=== PATIENT | female | born 1965 | race Caucasian/White ===

== ENCOUNTER → 2020-09-27 15:01 | Outpatient (CLI) | payer BC, SELFPAY ==
--- NOTE | ~2020-09-27 | MM_ITS ---
EXAMINATION: MM scrn garima implant BI w trish HISTORY: Screening mammogram TECHNIQUE: Craniocaudal and mediolateral oblique 3-D tomosynthesis images with implant displacement a nd synthetic 2-D images were generated. Craniocaudal and mediolateral oblique views of the breasts wi thout implant displacement were obtained using full field digital mammography. CAD analysis was submi tted and interpreted. COMPARISON: 06/21/2019, 06/16/2019, 06/03/2010 BREAST PARENCHYMAL COMPOSITION: There are scattered areas of fibroglandular density. FINDINGS: There is no evidence of suspicious mass, calcification, or architectural distortion to sugg est malignancy in either breast. There has been no suspicious interval change. IMPRESSION: 1. No mammographic evidence of malignancy. 2. Recommend routine screening mammography in one year. BI-RADS Category 1: Negative Reviewed, dictated and finalized at location A.
--- NOTE | ~2020-09-27 | XR_ITS ---
XR chest 2V DATE: 09/27/2020 15:21 INDICATION: Nicotine dependence TECHNIQUE: PA and lateral views COMPARISON: 06/16/2019 PA and lateral chest FINDINGS: Normal heart size. Aorta and arch calcification and mild aortic unfolding. No hilar or medi astinal enlargement. No pulmonary infiltrate or consolidation, pleural effusion or pulmonary vascular congestion or pneumothorax. IMPRESSION: No active cardiopulmonary disease Aortic atherosclerosis Reviewed, dictated and finalized at location B.
== END ==
PROVIDERS: PCP Internal Medicine; Visit Provider Internal Medicine
DX: Z12.31 Encounter for screening mammogram for malignant neoplasm of breast (principal); Z12.2 Encounter for screening for malignant neoplasm of respiratory organs; I70.0 Atherosclerosis of aorta; F17.210 Nicotine dependence, cigarettes, uncomplicated
CPT/HCPCS: 71046; 77063; 77067

== ENCOUNTER → 2020-11-12 15:55 | Outpatient (CLI) | payer BC, SELFPAY ==
--- NOTE | ~2020-11-12 | MR_ITS ---
EXAMINATION: MR cervical spine wo [facility] EXAM DATE: 11/12/2020 16:29 INDICATION: Bilateral hand loss of coordination TECHNIQUE: Multi-sequential, multiplanar MR images of the cervical spine were obtained without contra st. Axial T2, axial T2 MERGE sequence. Sagittal T1, T2, T2 fat saturation images also obtained. Th ere is no prior study for comparison. FINDINGS: There is moderate to severe loss of the C5-6 disc height, mild loss at C4-5. The vertebral bodies are aligned in the AP dimension. The spinal cord signal intensity and intrinsic morphology is normal. Cervicomedullary junction is normal in appearance. There are no suspicious marrow signal abn ormalities. Paraspinal soft tissue is unremarkable. Level by level evaluation: C2-C3: Disc does not extend beyond the endplate margin. Uncovertebral joint arthropathy: None. Facet joint arthropathy: Mild to moderate left, mild right. Neural foraminal stenosis: No stenosis. Central canal stenosis: No stenosis. C3-C4: Disc does not extend beyond the endplate margin. Uncovertebral joint arthropathy: None. Facet joint arthropathy: Mild to moderate bilateral. Neural foraminal stenosis: No stenosis. Central canal stenosis: No stenosis. C4-C5: There is a mild diffuse disc bulge asymmetric to the right Uncovertebral joint arthropathy: Mild right. Facet joint arthropathy: Mild to moderate bilateral. Neural foraminal stenosis: No stenosis. Central canal stenosis: No stenosis. C5-C6: There is a mild diffuse disc bulge asymmetric to the right Uncovertebral joint arthropathy: Mild to moderate bilateral. Facet joint arthropathy: Mild to moderate bilateral. Neural foraminal stenosis: Mild right. Central canal stenosis: Mild. C6-C7: Disc does not extend beyond the endplate margin. Uncovertebral joint arthropathy: Mild bilateral. Facet joint arthropathy: Mild bilateral. Neural foraminal stenosis: No stenosis. Central canal stenosis: No stenosis. C7-T1: Disc does not extend beyond the endplate margin. Uncovertebral joint arthropathy: None. Facet joint arthropathy: Mild bilateral. Neural foraminal stenosis: No stenosis. Central canal stenosis: No stenosis. IMPRESSION: 1. Cervical disc disease mostly at C5-6, but only mild stenosis. 2. Normal cervical cord signal. Reviewed, dictated and finalized at location A.
== END ==
PROVIDERS: PCP Internal Medicine; Visit Provider Orthopaedic Surgery
DX: R27.8 Other lack of coordination (principal); M50.920 Unspecified cervical disc disorder, mid-cervical region, unspecified level
CPT/HCPCS: 72141

== ENCOUNTER → 2022-02-14 15:43 | Outpatient (CLI) | payer BC, SELFPAY ==
--- NOTE | ~2022-02-14 | CT_ITS ---
EXAMINATION: CT lung screening DATE: 02/14/2022 16:02 INDICATION: Personal history of tobacco dependence TECHNIQUE: Computed tomography (CT) of the chest was performed without intravenous contrast. The dose -length product was 50.30 mGy-cm. Automated exposure control and iterative reconstruction technique w ere employed. COMPARISON: None FINDINGS: Heart size normal. There is atherosclerosis. No significant pleural or pericardial effusion . Upper abdomen is unremarkable. No lymphadenopathy. There are a few calcified granulomas in the lung parenchyma. There are a few additional nodules in both lungs measuring 3 mm or less, likely benign. There is emphysema. No endobronchial lesions. No pneumothorax. No focal airspace consolidation. Mild thoracic spondylosis with accentuated kyphosis. No acute osseous abnormality. There are breast implan ts. IMPRESSION: 1. Lung-RADS category 2: Benign appearance or behavior. Continue annual screening with noncontrast lo w-dose chest CT in 12 months. Reviewed, dictated and finalized at location A. IMPRESSION: 1. Lung-RADS category 2: Benign appearance or behavior. Continue annual screeni ng with noncontrast low-dose chest CT in 12 months.
== END ==
PROVIDERS: PCP Internal Medicine; Visit Provider Internal Medicine
DX: Z12.2 Encounter for screening for malignant neoplasm of respiratory organs (principal); Z87.891 Personal history of nicotine dependence
CPT/HCPCS: 71271

== ENCOUNTER 2022-02-18 14:37 | Outpatient (CLI) | payer BC, SELFPAY ==
--- NOTE | ~2022-02-18 | US_ITS ---
EXAMINATION: US arterial duplex LE DATE: 02/18/2022 15:50 INDICATION: Lateral lower limb pain. TECHNIQUE: Multiple grayscale and Doppler ultrasound images of the arteries of the bilateral lower li mbs were obtained. COMPARISON: None FINDINGS: Normal waveforms with brisk systolic upstrokes in the right external iliac, common femoral, profunda femoral, superficial femoral, popliteal, peroneal, posterior tibial, anterior tibial and dorsalis ped is arteries. No are abnormal gradient of peak systolic velocities to suggest a hemodynamically signif icant stenosis. Normal waveforms with brisk systolic upstrokes in the left external iliac, common femoral, profunda f emoral, superficial femoral, popliteal, peroneal, posterior tibial, anterior tibial and dorsalis pedi s arteries. No are abnormal gradient of peak systolic velocities to suggest a hemodynamically signifi cant stenosis. IMPRESSION: 1. Normal study with normal triphasic waveforms with brisk systolic upstrokes throughout the arteries of both the left and right lower limbs. Reviewed, dictated and finalized at location A. IMPRESSION: 1. Normal study with normal triphasic waveforms with brisk systolic upstrokes t hroughout the arteries of both the left and right lower limbs.
== END 2022-02-18 14:38 | disposition home or self-care (01) ==
PROVIDERS: PCP Internal Medicine; Visit Provider Internal Medicine
DX: M79.604 Pain in right leg (principal)
CPT/HCPCS: 93925

== ENCOUNTER → 2022-04-22 15:45 | Outpatient (CLI) | payer BC, SELFPAY ==
--- NOTE | ~2022-04-22 | MM_ITS ---
EXAMINATION: MM scrn garima implant BI w trish HISTORY: Screening mammogram TECHNIQUE: Craniocaudal and mediolateral oblique 3-D tomosynthesis images with implant displacement a nd synthetic 2-D images were generated. Craniocaudal and mediolateral oblique views of the breasts wi thout implant displacement were obtained using full field digital mammography. CAD analysis was submi tted and interpreted. COMPARISON: Comparison to multiple prior studies sequentially, with oldest reviewed study dated 06/05. BREAST PARENCHYMAL COMPOSITION: The breasts are heterogeneously dense, which may obscure small masses . FINDINGS: There is no evidence of suspicious mass, calcification, or architectural distortion to sugg est malignancy in either breast. There has been no suspicious interval change. IMPRESSION: 1. No mammographic evidence of malignancy. 2. Recommend routine screening mammography in one year. BI-RADS Category 1: Negative Reviewed, dictated and finalized at location A.
== END ==
PROVIDERS: PCP Internal Medicine; Visit Provider Internal Medicine
DX: Z12.31 Encounter for screening mammogram for malignant neoplasm of breast (principal)
CPT/HCPCS: 77063; 77067

== ENCOUNTER → 2023-03-26 15:09 | Outpatient (CLI) | payer BC, SELFPAY ==
--- NOTE | ~2023-03-26 | MR_ITS ---
MRI of the brain Clinical History: Parkinson's disease, abnormal gait Technique: Axial and sagittal T1-weighted images were acquired. These were followed by axial T2-weigh kathya, diffusion weighted, gradient, and FLAIR images. Findings: There is no acute infarct, intracranial hemorrhage, or mass lesion. There are small scatter ed focal areas of FLAIR hyperintense signal in the periventricular and subcortical white matter bilat erally. There is minimal involvement in the marisela as well. Ventricles and subarachnoid spaces are unremarkable. Orbits are unremarkable. Paranasal sinuses and m astoid air cells are clear. Major intracranial flow voids appear intact. Sagittal midline structures are intact. IMPRESSION: Mild chronic microvascular ischemic changes, otherwise unremarkable exam. Reviewed, dictated and finalized at location M.
== END ==
DX: G20 Parkinson's disease (principal); R26.89 Other abnormalities of gait and mobility
CPT/HCPCS: 70551

== ENCOUNTER 2024-06-18 09:46 | Outpatient (CLI) | payer BC, SELFPAY ==
--- NOTE | ~2024-06-18 | DEXA_ITS ---
Bone Density Report Name: LAYTON LEON Age: 59 Sex: Female Ethnicity: White Date of : 1965 Indication: postmenopausal; screening for osteoporosis; height loss; hysterectomy; Referring Provider: LUIS M, RICHARD Durbin Study: Bone densitometry was performed. Exam Date: June 18, 2024 Accession number: [id number] Bone Density: Region BMD T-score Z-score Classification AP Spine(L1-L4) 0.875 -1.6 -0.1 Osteopenia Femoral Neck (Left) 0.656 -1.7 -0.4 Osteopenia Total Hip (Left) 0.738 -1.7 -0.7 Osteopenia Femoral Neck (Right) 0.632 -2.0 -0.6 Osteopenia Total Hip (Right) 0.730 -1.7 -0.7 Osteopenia Total Hip Mean 0.734 -1.7 -0.7 Osteopenia World Health Organization criteria for BMD impression classify patients as: Normal (T-score at or above -1.0), Osteopenia (T-score between -1.0 and -2.5), or Osteoporosis (T-score at or below -2.5). 10-year Fracture Risk(1): Major Osteoporotic Fracture 9.7% Hip Fracture 1.2% Reported Risk Factors: [place] (), Neck BMD=0.632, BMI=24.8 (1) FRAX(R) Version 3.08. Fracture probability calculated for an untreated patient. Fracture probability may be lower if the patient has received treatment. Clinical Information Provided by Patient: Has used the following medications: Vitamin D Has the following medical conditions: Hysterectomy Patient maximum height was 64 Menopause Age: 40 Drinks caffeinated beverages Onset of menses at age 7 Number of children 1 Impression: The patient has low bone mass, based on the Right Femoral Neck T-score. The patient has an estimated ten-year risk of hip fracture of 1.2% and an estimated ten-year risk of major fracture of 9.7%, based on the WHO FRAX algorithm. Discussion: BONE DENSITY IS LOW AT ONE OR MORE SKELETAL SITES. This patient's lowest T-score is low at one or more skeletal sites. It meets the World Health Organization's (WHO) criteria for ?low bone mass? (T-score between -1.0 and -2.5). The patient's 10-year risk of fracture as calculated by FRAX is less than the threshold where pharmacological therapy is recommended by the National Osteoporosis Foundation (NOF). However, all treatment decisions require clinical judgment and consideration of individual patient factors, including patient preferences, comorbidities, previous drug use, risk factors not captured in the FRAX model (e.g., frailty, falls, vitamin D deficiency, increased bone turnover, interval significant decline in bone density) and possible under or overestimation of fracture risk by FRAX. The patient should follow a healthful lifestyle (good nutrition with adequate calcium and vitamin D, and appropriate weight-bearing exercise). Follow-Up: Consider repeating this study in 2 to 3 years to reassess this patient's status, or sooner if there is some new clinical indication. Reported by: MAU on 06/18/2024 10:43:00 AM. Reviewed, dictated and finalized at location AMeenakshi PAN
--- OUTSIDE RECORDS SUMMARY | 2024-06-22 02:34 | XMS_ITS | Encounter Summary ---
Author Organization [facility] Address [address] [place] [address] Care Team Providers Care Burnisher Name Role Phone Adam Han MD Primary Care Provider [phone] Reason for Visit * Reason Onset Date Comments Follow-up 10/22/2016 Encounter Details Date Type Department Care Team (Late st Contact Info) Description 10/22/2016 Telephone [facility] AT [address] [address] Nessa Bloom Follow-up Social History Tobacco Use Types Packs/Day Years Used Date Smoking Tobacco: Every Day Cigarettes Comments:denies need for pat ch states she has themn at home but hasn't started then heather Alcohol Use Standard Drinks/Week Comments Yes 0 (1 standard drink = 0.6 oz pur e alcohol) OCCASIONAL Sex and Gender Information Value Date Recorded Sex Assigned at Not on file Gender Identity Not on file Sexual Orientation Not on file documented as of this encounter Plan of Treatment Not on file documented as of this encounter Visit Diagnoses Not on filedocumented in this encounter Care Teams Burnisher Relationship Specialty Start Date End Date Adam Han MD [address] [place] [address] PCP - General 02/25/11 09/27/23 documented as of this encounter
--- OUTSIDE RECORDS SUMMARY | 2024-06-22 02:34 | XMS_ITS | Encounter Summary ---
Author Organization [facility] Address [address] [place] [address] Care Team Providers Care Forest Botany Instructor Name Role Phone Asad Davis MD Primary Care Provider [phone] Encounter Details Date Type Department Care Team (Latest Contact Info) Description 09/28/2023 Travel Social History Tobacco Use Types Packs/Day Years Used Date Smoking Tobacco: Former Cigarettes Comments:denies need for pat ch states [...] on filedocumented in this encounter Care Teams Forest Botany Instructor Relationship Specialty Start Date End Date Asad Davis MD [address] [address] PCP - General Internal Medicine 09/28/23 documented as of this encounter
--- OUTSIDE RECORDS SUMMARY | 2024-06-22 02:34 | XMS_ITS | Encounter Summary ---
Author Organization [facility] Address [address] [place] [address] Care Team Providers Care Mastercam Programmer Name Role Phone Adam Han MD Primary Care Provider Encounter Details Date Type Department Care Team (Latest Contact Info) Description 02/25/2011 3:35 PM CDT - 02/25/2011 11:59 PM CDT Hospital Encounter [facility] [address] [place] [address] Kyra sarmiento, Sandy Muñoz MD [address] [place] [id number] Laboratory Discharge Disposition: Home or Self Care Social History Tobacco Use Types Packs/Day Years Used Date Smoking Tobacco: Every Day Cigarettes Alcohol Use Standard Drinks/Week Comments Yes 0 (1 standard drink = 0.6 oz pur e alcohol) OCCASIONAL Sex and Gender Information Value Date Recorded Sex Assigned at Not on file Gender Identity Not on file Sexual Orientation Not on file documented as of this encounter Medications at Time of Discharge Medication Sig Dispensed Refills Start Date End Date docusate sodium (COLACE) 100 MG capsule Take 1 Cap by mouth 2 times daily. 60 Cap 0 2011 10/20/2016 ibuprofen (MOTRIN) 600 MG tablet Take 1 Tab by mouth every 6 hours as needed for Pain. 60 Tab 0 2011 10/20/2016 oxycodone-acetaminophen (PERCOCET) 5-325 MG tablet Take 1 Tab by mouth every 6 hours as needed for Pain. 28 Tab 0 2011 10/20/2016 documented as of this encounter Miscellaneous Notes * Miscellaneous Scans - Document, Scanned - 2011 7:21 AM CDT * Miscellaneous Scans - Document, Scanned - 03/04/2011 12:43 PM CDT documented in this encounter Plan of Treatment Not on file documented as of this encounter Procedures Procedure Name Priority Date/Time Associated Diagnosis Comments GROSS + MICRO EXAM HIEU 03/04/2011 12 :00 AM CDT TYPE + SCREEN PANEL Today 02/25/2011 3 :52 PM CDT CBC W AUTO DIFFERENTIAL Today 02/25/2011 3:52 PM CDT documented in this encounter Results * GROSS + MICRO EXAM (03/04/2011 12:00 AM CDT) Result CASE NUMBER [id number] Comment: ORDERING PHYSICIAN ??SANDY ELKINS SPECIMEN TYPE ?Uterus Date ? 03/04/2011 Physician ?William Gross Description ? The specimen is received in Formalin labeled with the patient's name, Zenobia Henley, and uterus and cervix. ??It consists of a 9 x 6.5 x 4 cm uterine corpus with attached cervix. ??It weighs 100 grams. ??The right and left adnexa are absent. ??The serosa is smooth and glistening. ??The ectocervix measures 3 cm in diameter. ??The external os is slit like, 0.5 cm in length, and is surrounded by punctate areas of hemorrhage. ??The endocervical canal measures 3 cm in length. ??The uterine cavity measures 3 x 2 cm, and is lined by soft red yung endometrium that measures up to 0.1 cm in thickness. ??The myometrium has a maximum thickness of 2 cm in thickness. ??The endomyometrium has a trabeculated appearance. ??No definite discrete nodules are seen on the myometrial cut surfaces. ??Planning Official sections of the specimen are submitted as follows Cassettes A and B ?? Cervix. Cassettes C through F ?? Endomyometrium and serosa, including trabeculated myometrium. DAVIS kuo Microscopic Exam ? Sections of the cervix show benign unremarkable histology. ??No dysplasia or malignancy is seen. ??Sections of the endomyometrium show proliferative type endometrium and benign myometrium. ??The serosa is unremarkable. ??There is no evidence of dysplasia or malignancy. ?? MC/vl Diagnosis ? I. ?Uterus, hysterectomy -- ?Cervix with no pathologic diagnosis -- ?Proliferative endometrium -- ?Myometrium and serosa with no pathologic diagnosis MC/vl Tugboat Captain ? vl Pathologist ?Maribell Ross MD [place]. ?2011 1231 <3> CPT code ? 60718 MISCELLANEOUS SAMPLE S / Unknown 03/04/2011 03/04/2011 10:27 AM CDT Historical Provider LAB - PATHOLOGY/C YTOLOGY ORDERABLES * TYPE + SCREEN PANEL (02/25/2011 3:52 PM CDT) ABO Rh O Pos SEE BELOW [facility] Comment: Weak D testing is not performed at [facility] Antibody Screen Neg [facility] Previous History Check Done No historical blood type. ??Blood type confirmation needed prior to transfusion. [facility] BLOOD SPECIMEN / Unknown 02/25/2011 3:52 PM CDT 02/25/2011 4:07 PM CDT Sandy Wayne MD LAB - BLOOD BANK ORDERABLES [facility] [address] [place] [address] * (ABNORMAL) CBC W AUTO DIFFERENTIAL (02/25/2011 3:52 PM CDT) WBC 10.4(H) 4.0 - 10.0 K/CUMM [facility] RBC 4.33 3.80 - 5.80 M/CUMM [facility] Hemoglobin 13.8 12.0 - 16.0 gm/dl [facility] Hematocrit 40.1 37.0 - 47.0 % [facility] MCV 92.6 80.0 - 100.0 fl [facility] MCH 31.9 26.0 - 34.0 pg [facility] MCHC 34.4 31.0 - 37.0 gm/dl [facility] Platelet Count 301 150 - 400 K/CUMM [facility] RDW 13.3 11.5 - 14.5 % [facility] Granulocytes % 51.9 50 - 70 % [facility] Lymphocytes % 37.3 20 - 40 % [facility] Monocytes % 8.5 0 - 12 % [facility] Eosinophils % 1.7 0 - 5 % [facility] Basophils % 0.3 0 - 2 % [facility] Granulocytes Absolute 5.39 2.00 - 7.00 x1000/cmm [facility] Lymphocytes Absolute 3.87 0.80 - 4.00 x1000/cmm [facility] Monocytes Absolute 0.88 0.00 - 1.20 x1000/cmm [facility] Eosinophils Absolute 0.18 0.00 - 0.50 x1000/cmm [facility] Basophils Absolute 0.03 0.00 - 0.20 x1000/cmm [facility] BLOOD SPECIMEN / Unknown 02/25/2011 3:52 PM CDT 02/25/2011 4:07 PM CDT Sandy Wayne MD LAB - HEMATO LOGY ORDERABLES [facility] [address] [place] [address] documented in this encounter Visit Diagnoses Diagnosis Dysmenorrhea documented in this encounter Care Teams Mastercam Programmer Relationship Specialty Start Date End Date Adam Han MD [address] [place] [address] PCP - General 02/25/11 09/27/23 documented as of this encounter
--- OUTSIDE RECORDS SUMMARY | 2024-06-22 02:34 | XMS_ITS | Encounter Summary ---
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 documented in this encounter Plan of Treatment Not on file documented as of this encounter Procedures Procedure Name Priority Date/Time Associated Diagnosis Comments UT SONO EXAM, TRANSVAGINAL Routine 12/03/2023 2:26 PM CDT Dyspareunia, female IMAGING/RADIOLOGY/XRA Y RESULTS ORDER 12/03/2023 documented in this encounter Results * UT SONO EXAM, TRANSVAGINAL (12/03/2023 2:26 PM CDT) Narrative Snehal Ospina - 12/03/2023 2:26 PM CDT Snehal Ospina ? 12/03/2023 ??2:27 PM Documentation in [employer]. Cathy Wayne MD PROCEDURE/[place] [facility] SURGICAL ORDERABLES * IMAGING RADIOLOGY XRAY RESULTS ORDER (12/03/2023) Anatomical Region Laterality Modality Other Narrative 12/03/2023 Ordered by an unspecified provider. Scanned Document IMAGING documented in this encounter Visit Diagnoses Diagnosis Dyspareunia, female- Primary Dyspareunia documented in this encounter Care Teams Vault Installer Relationship Specialty Start Date End Date Asad Davis MD [address] [address] PCP - General Internal Medicine 09/28/23 documented as of this encounter
--- OUTSIDE RECORDS SUMMARY | 2024-06-22 02:34 | XMS_ITS | Encounter Summary ---
Author Organization [facility] Address [address] [place] [address] Care Team Providers Care Supervisor Anodizing Name Role Phone Asad Davis MD Primary Care Provider Encounter Details Date Type Department Care Team (Latest Contact Info) Description 12/03/2023 Travel Social History Tobacco Use Types Packs/Day [...] on filedocumented in this encounter Care Teams Supervisor Anodizing Relationship Specialty Start Date End Date Asad Davis MD [address] [address] PCP - General Internal Medicine 09/28/23 documented as of this encounter
--- OUTSIDE RECORDS SUMMARY | 2024-06-22 02:34 | XMS_ITS | Encounter Summary ---
Author Organization [facility] Address [facility] [place] [address] Care Team Providers Care Boat Loader Helper Name Role Phone Asad Davis MD Primary Care Provider + [phone] Reason for Visit * Reason Comments Dyspareunia Ultrasound f/u Encounter Details Date Type Department Care Team (Late st Contact Info) Description 12/03/2023 3:00 PM CDT Office Visit [facility] - CONTRACT AGENT [address] [place] [address] Cathy Wayne MD [address] [place] [address] Dyspareunia, female (Primary Dx) Social History Tobacco Use Types Packs/Day Years Used Date Smoking Tobacco: Former Cigarettes Tobacco Cessation:Counseling Given: Not Answered Comments:denies need for patch states she has themn at home but hasn't started then heather Alcohol Use Standard Drinks/Week Comments Yes 0 (1 standard drink = 0.6 oz pur e alcohol) OCCASIONAL Sex and Gender Information Value Date Recorded Sex Assigned at Not on file Gender Identity Not on file Sexual Orientation Not on file documented as of this encounter Last Filed Vital Signs Vital Sign Reading Time Taken Comments Blood Pressure - - Pulse - - Temperature - - Respiratory Rate - - Oxygen Saturation - - Inhaled Oxygen Concentration - - Weight 64 kg (141 lb) 12/03/2023 2:44 PM CDT Height 160 cm (5' 3 ) 12/03/2023 2:44 PM CDT Body Mass Index 24.98 12/03/2023 2:44 PM CDT documented in this encounter Progress Notes * Cathy Wayne MD - 12/03/2023 3:00 PM CDT New General geodetic surveyor Patient Progress Note History of Present Illness: Ms. Glasgow a 58 year old No obstetric history on file. female who presents for f/u US for dyspareunia. Partner with Peronis. Obstetrical history: OB History No obstetric history on file. Medical history: Past Medical History: Diagnosis Date Diverticulitis Other activity(E029.9) CERVIX IS CLOSED Parkinson's disease Surgical history: Past Surgical History: Procedure Laterality Date ABDOMINOPLASTY Section DILATION AND CURETTAGE X 2 ENDOMETRIAL ABLATION SURGICAL HISTORY OF 03/04/11 Total Laparoscopic Hysterectomy TUBAL LIGATION, LAPAROSCOPIC Family history: Family History Problem Relation Name Age of Onset Heart Failure Mother Cancer Father Social history: Social History Socioeconomic History Marital status: Spouse name: Not on file Number of children: Not on file Years of education: Not on file Highest education level: Not on file Occupational History Not on file Tobacco Use Smoking status: Former Packs/day: .8 Types: Cigarettes Smokeless tobacco: Not on file Tobacco comments: denies need for patch states she has themn at home but hasn't started then heather Vaping Use Vaping Use: Never used Substance and Sexual Activity Alcohol use: Yes Comment: OCCASIONAL Drug use: No Sexual activity: Yes Partners: Male control/protection: Surgical Other Topics Concern Not on file Social History Narrative Not on file Social Determinants of Health Financial Resource Strain: Not on file Food Insecurity: Not on file Transportation Needs: Not on file Stress: Not on file Housing Stability: Not on file Medications: Current Outpatient Medications Medication Sig Dispense Refill estradiol (Vagifem) 10 MCG vaginal tablet Insert 1 (one) tablet into the vagina as directed Place tablet nightly for 2 weeks, then twice weekly. Ok to use generic 18 tablet 4 No current facility-administered medications for this visit. Allergies: Allergies Allergen Reactions Neosporin [Vfaqkhht-Qecqylpwao-Hhgzyyycn] IRRITATES SKIN Review of Systems: Pertinent items are noted in HPI. Physical examination: There were no vitals filed for this visit. There is no height or weight on file to calculate BMI. General: within normal limits Skin: within normal limits Assessment and Plan: No diagnosis found. Normal US. Improved dyspareunia with vaginal estrogen. Plan to continue. documented in this encounter Plan of Treatment Not on file documented as of this encounter Visit Diagnoses Diagnosis Dyspareunia, female- Primary Dyspareunia documented in this encounter Care Teams Boat Loader Helper Relationship Specialty Start Date End Date Asad Davis MD [address] [place] [address] PCP - General Internal Medicine 09/28/23 documented as of this encounter
--- OUTSIDE RECORDS SUMMARY | 2024-06-22 02:34 | XMS_ITS | Encounter Summary ---
Author Organization [facility] Address [address] [facility] [place] [address] Care Team Providers Care Pigs Feet Finisher Name Role Phone Adam Han MD Primary Care Provider [phone] Encounter Details Date Type Department Care Team (Latest Contact Info) Description 08/26/2023 Travel Social History Tobacco Use Types Packs/Day [...] on filedocumented in this encounter Care Teams Pigs Feet Finisher Relationship Specialty Start Date End Date Adam Han MD [address] [facility] [place] [address] PCP - General 02/25/11 09/27/23 documented as of this encounter
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
--- OUTSIDE RECORDS SUMMARY | 2024-06-22 02:34 | XMS_ITS | Encounter Summary ---
Author Organization [facility] Address [address] [facility] [place] [address] Care Team Providers Care Rivet Passer Name Role Phone Adam Han MD Primary Care Provider [phone] Encounter Details Date Type Department Care Team (Late st Contact Info) Description 10/22/2006 Orders Only [facility] [address] [place] [address] Provider, MD Amaya Social History Tobacco Use Types Packs/Day Years Used Date Smoking Tobacco: Never Assessed Sex and Gender Information Value Date Recorded Sex Assigned at Not on file Gender Identity Not on file Sexual Orientation Not on file documented as of this encounter Plan of Treatment Not on file documented as of this encounter Procedures Procedure Name Priority Date/Time Associated Diagnosis Comments GROSS + MICRO EXAM [facility] 10/22/2006 12 :47 PM CDT documented in this encounter Results * GROSS + MICRO EXAM (10/22/2006 12:47 PM CDT) Result CASE NUMBER [id number] Comment: ORDERING PHYSICIAN ??CELSA PADRON SPECIMEN TYPE ?Endocervical Curret Date ? 10/22/2006 Physician ?Jason Padron Gross Description ? The specimen is received in two Formalin filled containers labeled with the patient's name, Zenobia Henley. 1) ??The first container is labeled endocervical curettings, and consists of a 0.5 x 0.3 x 0.2 cm aggregate of soft red yung bloody mucoid material, all submitted in cassette A. 2) ??The second container is labeled endometrial curettings, and consists of a 0.8 x 0.6 x 0.5 cm aggregate of soft red yung bloody mucoid material, all submitted in cassette B. LW kuo Microscopic Exam ? 1. ?Sections show fragment of benign endocervical glands and stroma. No dysplasia or malignancy is seen. 2. ?Sections show fragments of early secretory type endometrium. No hyperplasia, atypia, or malignancy is seen. MC/na Diagnosis ? I. ?Endocervix, curettage -- ?Negative for dysplasia or ?malignancy II. ?? Endometrium, curettage -- ?Early secretory endometrium MC/na Modern Languages Professor ? na Pathologist ?Connor Ross M.D. [place]. ?10/23/2006 0939 <2> CPT code ? [id number] MISCELLANEOUS SAMPLES / Unknown 10/22/2006 12:47 PM CDT 10/22/2006 12:47 PM CDT Historical Provider LAB - PATHOLOGY/C YTOLOGY ORDERABLES documented in this encounter Visit Diagnoses Not on filedocumented in this encounter Care Teams Rivet Passer Relationship Specialty Start Date End Date Adam Han MD [address] [place] [address] PCP - General 02/25/11 09/27/23 documented as of this encounter
--- OUTSIDE RECORDS SUMMARY | 2024-06-22 02:34 | XMS_ITS | Encounter Summary ---
Author Organization [facility] Address [facility] [place] [address] Care Team Providers Care Threader Operator Name Role Phone Adam Han MD Primary Care Provider [phone] Encounter Details Date Type Department Care Team (Latest Contact Info) Description 03/04/2011 5:46 AM CDT - 2011 11:59 AM CDT Hospital Encounter HC 2 ORTHO/NEW VIS [address] [place] [id number] Cathy Weinstein MD [address] [place] [id number] Surgery General Discharge Disposition: Home or Self Care Social History Tobacco Use Types Packs/Day Years Used Date Smoking Tobacco: Every Day Cigarettes Tobacco Cessation:Ready to Q uit: Yes; Counseling Given: Yes Comments:denies need for patch states she has [...] Sign Reading Time Taken Comments Blood Pressure 137/79 2011 8:58 AM CDT Pulse 58 2011 8:58 AM CDT Temperature 36.9 ??C (98.4 ??F) 2011 8:58 AM CD T Respiratory Rate 18 2011 8:58 AM CDT Oxygen Saturation 100% 2011 8:58 AM CDT Inhaled Oxygen Concentration - - Weight 65.8 kg (145 lb) 02/14/2011 4:30 PM CDT Height 160 cm (5' 3 ) 02/14/2011 4:30 PM CDT Body Mass Index 25.69 02/14/2011 4:30 PM CDT documented in this encounter Discharge Summaries * Bam Ch RN - 2011 12:[address] Scott on voiding trial. Dr young'd to [place]. Pt was given all discharge instructions, prescribed medications, and paper work. All questions answered. Pt has no complaints or concern at discharge. Pt to call Dr. Scott's office tomorrow. Pt off the floor via walking. Bam Ch RN documented in this encounter Discharge Instructions * Discharge Instructions* Bam Ch RN - 2011 11:44 AM CDT If you have any questions regarding your home medications/prescriptions, please contact your primary physician. Discharge Procedure Orders REGULAR DIET AT HOME FOLLOW UP Follow up with Dr. Schneider at the [place] office in 1 week for post op check. Please call for this appointment as soon as possible. Their number is [phone]. DRIVING RESTRICTIONS No driving under the influence of narcotics. CALL PHYSICIAN Call Physician for fever of 101.0 or higher, increased vaginal bleeding, increased pain, or wound drainage. Please avoid smoking and second hand smoke. The following belongings have been returned to you: Clothing: Yes, With Patient: Shirt;Pants;Footwear;Undergarments (with jaz) Jewelry: None Electronic Items: Yes, With Patient: Cell Phone (with jaz) Visual Aids: Yes, Glasses: Secured (with jaz) Hearing Aids: None Equipment with Patient: None, Equipment At Home: None Home Medications: None Miscellaneous Items: None Monetary Items: None .WEIGHT MONITORING - If you have heart failure, weigh yourself every morning. Contact your physician if your weight increases by 3 pounds in 1 day OR 5 pounds in 1 week. WHAT TO DO IF SYMPTOMS WORSEN - Contact your physician if you have shortness of breath/difficulty breathing, or any swelling of your legs, ankles or feet. The discharge and medication instructions have been reviewed with me and my questions have been answered. I have received a copy of the discharge instructions. 2011 * Discharge Instructions* Document, Scanned - 03/07/2011 8:31 AM CDT documented in this encounter Medications at Time of Discharge [...] 2011 10/20/2016 documented as of this encounter Progress Notes * Wu Kuhn MD - 2011 10:19 AM CDT POST-OP ANESTHESIA EVALUATION Layton Leon is a 46 y.o. female The patient is sufficiently recovered from the acute administration of the anesthesia so as to participate in the evaluation or neurologic status has returned to pre-operative or expected level of consciousness. The post-anesthesia assessment was completed based upon the elements below. The patient is stable and has adequately recovered from anesthesia unless otherwise noted. Post-op Evaluation: Temp: 98.4 ??F Pulse: 58 Resp: 18 SpO2: 100 % BP: 137/79 mmHg Pain Rating Score #: 0 Resp function: Natural Airway Cardiac Function: Stable Mental Status : Awake/Alert Pain: Comfortable / acceptable Nausea / Vomiting: None Post Procedure Hydration: Adequate Other complications A post-op evaluation was performed on the patient with the following assessment: No Apparent Anesthesia Complications;Vital Signs and Mental Status unchanged from Preop Unless otherwise indicated, the patient is being discharged from anesthesia care. Wu Kuhn MD * Jessy Caballero MD - 2011 6:35 AM CDT [employer] Post-Op Note Date: 2011, 6:35 AM Subjective: 46 y.o. s/p TLH, FLACO, bilateral salpingectomy, cystoscopy. Patient reports feeling very well this morning. She is ready for her catheter to come out and ready to get up and walk the halls. She does complain of some mild rib cage pain and shoulder pain, but nothing unbearable. Objective: Temp (24hrs) Max:99.1 ??F Vitals: 03/04/11 2045 03/05/11 0010 03/05/11 0236 03/05/11 0523 BP: 125/66 142/83 113/71 Pulse: 64 62 63 Temp: 99.1 ??F 98.7 ??F 98.2 ??F 98.7 ??F Resp: 18 18 16 Weight: SpO2: 98% 98% 96% Intake/Output Summary (Last 24 hours) at 03/05/11 0635 Last data filed at 03/05/11 0525 Gross per 24 hour Intake: 5002 ml Output: 2175 ml Net : 2827 ml Date 03/05/11 0000 - 03/05/11 2359 Shift 9473-8072 4396-2018 5387-2434 24 Hour Total I N T A K E P.O. 150 150 I.V. 1198 1198 Shift Total 1348 1348 O U T P U T Urine 600 600 Shift Total 600 600 Physical Exam: General: alert, cooperative, no distress Lungs: clear to auscultation bilaterally Heart: regular rate and rhythm Abdomen: BS+/S/ND, appropriately tender, Incision-c/d/i Extremities: normal, non-tender bilaterally MEDICATIONS FOR CURRENT ENCOUNTER: SCHEDULED MEDICATIONS: cefoXITIN (MEFOXIN) IVPB 2 g, Intravenous, Once docusate sodium (COLACE) capsule 100 mg, Oral, BID ?? ketorolac (TORADOL) injection 30 mg, Intravenous, q6h CONTINUOUS MEDICATIONS: ?? lactated ringers infusion, Intravenous, Continuous PRN MEDICATIONS: ibuprofen (MOTRIN) tablet 600 mg, Oral, q6h PRN metoclopramide (REGLAN) injection 10 mg, Intravenous, q6h PRN morphine injection 2 mg, Intravenous, q2h PRN ondansetron (ZOFRAN) injection 4 mg, Intravenous, q6h PRN ?? oxycodone-acetaminophen (PERCOCET) 5-325 MG tablet 1-2 Tab, Oral, q4h PRN Assessment/Plan: 46 y.o. s/p TLH, FLACO, bilateral salpingectomy, cystoscopy, POD # 1 1. AFVSS 2. GI- xavi regular diet. positive flatus 3. - UOP adequate . Philip catheter to come out now. 4. Pain Control-adequate 5. Heme- ?? Pre op H&H 13.8/40.1 - minimal intraop blood loss ?? asymptomatic 6. Prophylaxis-patient ambulating 7. Dispo: convalescing appropriately; anticipate discharge today after voiding trial Ana Lopes MD 03/04/2011 6:35 AM Pt seen and examined. Agree with above; pt to follow up with Dr. Schneider in 1 week. Jessy Caballero MD 2011 6:41 AM * Agustina Jackson RN - 2011 6:18 AM CDT Shift summary: Pt concerned about not passing flatus/BM, got up and walked around during hourly shift. Little pain noted to abdominal incisions, lap site dressings small amt of drainage. Vag packing and philip in place. Poss d/c today. Will continue to moniotor. Agustina Jackson RN 2011 6:20 AM * Jevon Samson - 2011 6:14 AM CDT Post-Op Progress Note Date: 2011 6:14 AM Admit Date: 03/04/2011 Subjective: Pt post-op for TLH, bilateral salpingectomy, cystocopy for hematometria. Pt experiences pain in ribcage but otherwise none. Patient comfortable and on regular diet. Minimal spotting per vagina. Incisions healing well. Objective: Vitals: 03/04/11 2045 03/05/11 0010 03/05/11 0236 03/05/11 05 BP: 125/66 142/83 113/71 Pulse: 64 62 63 Temp: 99.1 ??F 98.7 ??F 98.2 ??F 98.7 ??F Resp: 18 18 16 Weight: SpO2: 98% 98% 96% Intake/Output Summary (Last 24 hours) at 03/05/11613 Last data filed at 03/05/11524 Gross per 24 hour Intake 5002 ml Output 2175 ml Net 2827 ml Physical Exam: General: she is alert, cooperative, and in NAD CVS: RRR, S1 and S2 nl, no murmurs, clicks, gallops or rubs. Lungs: CTA; no wheezes or rales. Abdomen: Soft w/o tenderness, guarding, mass, rebound or organomegaly. Bowel sounds present. Extremities: No edema, ulcers or tenderness. Current Facility-Administered Medications Medication Dose Route Frequency Provider Last Rate Last Dose ??? famotidine (PEPCID) tablet 20 mg 20 mg Oral pre-OP once Jacob Valenzuela MD 20 mg at 651 ??? metoclopramide (REGLAN) tablet 10 mg 10 mg Oral pre-OP once Jacob Valenzuela MD 10 mg at 03/04/11 0651 ??? cefoXITIN (MEFOXIN) IVPB 2 g 2 g Intravenous Once Sara Loaiza CRNA 2 g at 03/04/11 0715 ??? lactated ringers infusion Intravenous Continuous Jessy Caballero MD 125 mL/hr at 03/05/11 0015 ??? ketorolac (TORADOL) injection 30 mg 30 mg Intravenous q6h Jessy Caballero MD 30 mg at 03/05/11 0236 ??? ibuprofen (MOTRIN) tablet 600 mg 600 mg Oral q6h PRN Jessy Caballero MD ??? oxycodone-acetaminophen (PERCOCET) 5-325 MG tablet 1-2 Tab 1-2 Tab Oral q4h PRN Jessy Caballero MD ??? ondansetron (ZOFRAN) injection 4 mg 4 mg Intravenous q6h PRN Jessy Caballero MD ??? metoclopramide (REGLAN) injection 10 mg 10 mg Intravenous q6h PRN Jessy Caballero MD ??? docusate sodium (COLACE) capsule 100 mg 100 mg Oral BID Jessy Caballero MD 100 mg at 03/04/11 2100 ??? morphine injection 2 mg 2 mg Intravenous q2h PRN Jessy Caballero MD Labs: Component Name 02/25/11 1552 WBC 10.4* RBC 4.33 HCT 40.1 MCV 92.6 MCH 31.9 MCHC 34.4 RDW 13.3 Assessment/Plan: 1. AFVSS 2. Pt ambulating. 3. Pain adequately controlled by toradol. 4. GI. 1. Tolerating oral diet. 2. Flatus not passed. 5. . 1. Results of gross and micro exam of uterus and cervix pending. 6. Discharge today after voiding trial 7. Awaiting post-op CBC Jevon Samson 2011 6:14 AM * Parish Sanon - 03/04/2011 5:14 PM CDT Gynecological Surgery Medical Student Progress Note Subjective: Post op day 0 following total laparoscopic hysterectomy. Pt is resting comfortably. Pain is adequately controlled with toradol. Pt is tolerating oral diet. Flatus has not been passed. Objective: Temp (30hrs) Max:98.5 ??F Vitals: 03/04/11 1115 03/04/11 1125 03/04/11 1129 03/04/11 1204 BP: 130/73 123/73 127/68 120/76 Pulse: 64 65 65 68 Temp: 98.5 ??F Resp: Weight: SpO2: 98% 99% 98% 99% Intake/Output Summary (Last 24 hours) at 03/04/11 1714 Last data filed at 03/04/11 1100 Gross per 24 hour Intake 1600 ml Output 475 ml Net 1125 ml Date 03/04/11 07 - 03/05/11 0659 Shift 3495-5604 6316-2061 6277-3520 24 Hour Total I N T A K E I.V. 1600 1600 Shift Total 1600 1600 O U T P U T Urine 375 375 Blood 100 100 Shift Total 475 475 Weight (kg) 65.8 65.8 65.8 65.8 MEDICATIONS FOR CURRENT ENCOUNTER: ?? SCHEDULED MEDICATIONS: ?? cefoXITIN (MEFOXIN) IVPB 2 g, Intravenous, Once ?? docusate sodium (COLACE) capsule 100 mg, Oral, BID ?? ketorolac (TORADOL) injection 30 mg, Intravenous, q6h ?? CONTINUOUS MEDICATIONS: ?? lactated ringers infusion, Intravenous, Continuous ?? PRN MEDICATIONS: ?? ibuprofen (MOTRIN) tablet 600 mg, Oral, q6h PRN ?? metoclopramide (REGLAN) injection 10 mg, Intravenous, q6h PRN ?? morphine injection 2 mg, Intravenous, q2h PRN ?? ondansetron (ZOFRAN) injection 4 mg, Intravenous, q6h PRN ?? oxycodone-acetaminophen (PERCOCET) 5-325 MG tablet 1-2 Tab, Oral, q4h PRN Exam: General: healthy, alert and no distress Lungs: breath sounds symmetrical without rales or wheezes Heart: regular rate and rhythm, normal S1 and S2, no murmurs Abdomen: +BS in all 4 quadrants. Tenderness. : Deferred to resident Data: Component Name 02/25/11 1552 WBC 10.4* HGB 13.8 HCT 40.1 PLTCOUNT 301 Assessment/Plan: 1. AFVSS 2. Pt not ambulating. Will ambulate tomorrow AM after philip is removed. 3. Pain adequately controlled by toradol. 4. GI. 1. Tolerating oral diet. 2. Flatus not passed. 5. . 1. Results of gross and micro exam of uterus and cervix pending. 2. Physical exam deferred to resident. 3. Philip catheter removed in AM according to resident's plan. 6. Discharge according to resident's plan. Parishcase Sanon MSIII 03/04/2011 5:14 PM * Ana Lopes MD - 03/04/2011 5:14 PM CDT Please see resident note for details. Ana Lopes MD * Ana Lopes MD - 03/04/2011 4:55 PM CDT [employer] Post-Op Note Date: 03/04/2011, 4:55 PM Subjective: 45 y.o. s/p TLH, FLACO, bilateral salpingectomy, cystoscopy. Patient reports feeling very well this evening. Her pain is well-controlled and she is tolerating regular diet without nausea/vomiting. Objective: Temp (24hrs) Max:98.5 ??F Vitals: 03/04/11 1115 03/04/11 1125 03/04/11 1129 03/04/11 1204 BP: 130/73 123/73 127/68 120/76 Pulse: 64 65 65 68 Temp: 98.5 ??F Resp: 14 14 13 18 Weight: SpO2: 98% 99% 98% 99% Intake/Output Summary (Last 24 hours) at 03/04/11 1655 Last data filed at 03/04/11 1100 Gross per 24 hour Intake 1600 ml Output 475 ml Net 1125 ml Date 03/04/11 0000 - 03/04/11 2359 Shift 2547-6610 4326-9892 8420-0812 24 Hour Total I N T A K E I.V. 1600 1600 Shift Total 1600 1600 O U T P U T Urine 375 375 Blood 100 100 Shift Total 475 475 Physical Exam: General: alert, cooperative, no distress Lungs: clear to auscultation bilaterally Heart: regular rate and rhythm Abdomen: BS+/S/ND, appropriately tender, Incision-c/d/i Extremities: normal, non-tender bilaterally MEDICATIONS FOR CURRENT ENCOUNTER: ?? SCHEDULED MEDICATIONS: ?? cefoXITIN (MEFOXIN) IVPB 2 g, Intravenous, Once ?? docusate sodium (COLACE) capsule 100 mg, Oral, BID ?? ketorolac (TORADOL) injection 30 mg, Intravenous, q6h ?? CONTINUOUS MEDICATIONS: ?? lactated ringers infusion, Intravenous, Continuous ?? PRN MEDICATIONS: ?? ibuprofen (MOTRIN) tablet 600 mg, Oral, q6h PRN ?? metoclopramide (REGLAN) injection 10 mg, Intravenous, q6h PRN ?? morphine injection 2 mg, Intravenous, q2h PRN ?? ondansetron (ZOFRAN) injection 4 mg, Intravenous, q6h PRN ?? oxycodone-acetaminophen (PERCOCET) 5-325 MG tablet 1-2 Tab, Oral, q4h PRN Assessment/Plan: 45 y.o. s/p TLH, FLACO, bilateral salpingectomy, cystoscopy, POD # 0 1. AFVSS 2. GI- xavi regular diet. Negative flatus 3. - UOP adequate . Philip catheter to come out in the morning. 4. Pain Control-adequate 5. Heme- post op CBC for morning 6. Prophylaxis-SCDs in bed. Encourage ambulation. 7. Dispo: convalescing appropriately; anticipate discharge tomorrow after passing voiding trial. Ana Lopes MD 03/04/2011 4:55 PM * Nury Navarro RN - 03/04/2011 12:12 PM CDT Patient received from [facility] good pain control. Instructed environmental sciences professor system and orientate to room. Encouraged to call for needs.Nury Navarro RN 03/04/2011 12:13 PM Patient has rested post surgery. She started waking up around 1630. Patient has been pain controlled. She is tolerating a reg diet. Patient is eating regular food slowly. Encourage to call for needs.Will try to ambulate after she eats her dinner.Nury Navarro RN 03/04/2011 5:51 PM * Parish Sanon - 03/04/2011 7:23 AM CDT Gynecological Surgical Pre-Op Medical Student Note 03/04/2011 7:23 AM Layton Leon 45 y.o. female Planned Procedure: total laparoscopic hysterectomy. Pre-op Diagnosis: Uterine fibroids and menorrhagia Surgeon: Dr. Wayne Type of anesthesia: General Pt has not eaten since: Since midnight Consent in chart: Y Exam Vitals: 02/14/11 1630 03/04/11 0633 BP: 125/70 Pulse: 64 Temp: 98.4 ??F Resp: 18 Weight: 145 lb (65.772 kg) SpO2: 98% Lungs: breath sounds normal and symmetric; no rales or wheezes Heart: regular rhythm, normal S1 and S2, without murmurs, gallops or rubs Abdomen: Non-tender. +BS all four quadrants Data Component Name 02/25/11 1552 WBC 10.4* HGB 13.8 HCT 40.1 PLTCOUNT 301 Blood type: O+ Parish Sanon Medical Student * Ana Lopes MD - 03/04/2011 7:23 AM CDT Please see resident note for details. Ana Lopes MD * Reji Garcia MD - 03/04/2011 6:13 AM CDT PRE-ANESTHESIA EVALUATION Evaluated By: Reji Garcia MD, 03/04/2011 6:13 AM Layton Leon is a 45 y.o. female Purpose: Scheduled Procedure Scheduled procedure: * Hospital Problem List There is no problem list on file for this patient. Allergies Neosporin Meds No prescriptions prior to admission No current facility-administered medications for this encounter. Past Medical History Past Medical History Diagnosis Date ??? Other activity CERVIX IS CLOSED Past Surgical History Past Surgical History Procedure Date ??? Endometrial ablation ??? Dilation and curettage X 2 ??? Abdominoplasty ??? section Past Social History History Social History ??? Marital Status: Spouse Name: N/A Number of Children: N/A ??? Years of Education: N/A Occupational History ??? Not on file. Social History Main Topics ??? Smoking status: Current Everyday Smoker -- 0.8 packs/day ??? Smokeless tobacco: Not on file ??? Alcohol Use: Yes OCCASIONAL ??? Drug Use: No ??? Sexually Active: Not on file Other Topics Concern ??? Not on file Social History Narrative ??? No narrative on file Last Vital SignsVITAL SIGNS Weight: 145 lb Height: 5' 3 Pre-Eval ExamPrevious Review I reviewed previous documentation: Yes PHYSICAL EXAM NPO status: Since Midnight Heart Sounds: S1 S2 Respiratory Pattern/Effort: CTA Oriented x 3: Yes Teeth: Ok Airway Class: I ANESTHESIA ASA: II Anesthesia Choices: General Post-Op: PACU documented in this encounter H&P Notes * Cathy Wayne MD - 03/03/2011 9:08 AM CDT [place] [id number] History & Physical PATIENT NAME: LAYTON LEON MR#: [id number] AGE: 45 : 1965 DATE OF ADMISSION: 03/04/2011 ROOM#: HISTORY OF PRESENT ILLNESS: The patient is a 45-year-old 1, para 1 with severe dysmenorrhea. She is status post endometrial ablation for menorrhagia with initial improvement. However, she subsequently began experiencingmonthly severe pain prompting a CT scan in August 2010 that showed a likely hematometra. She doeshave a history of cervical stenosis. She has had a hysteroscopy and D and C with laminaria and Cytotec, and evaluation of her endometrial lining has previously been benign. She also has a history of diverticulosis. Her Pap smears have been negative. She has been counseled on medical therapy to attempt to manage hematometra or surgical therapy and desires definitive therapy with hysterectomy. She presents for total laparoscopic hysterectomy. PAST MEDICAL PROBLEMS: Fibroids and diverticulitis. PAST SURGERIES: History of cryo x2, hysteroscopy, D and C with endometrial ablation, section, and abdominoplasty. FAMILY HISTORY: Mother with hypertension. SOCIAL HISTORY: She smokes every day. No alcohol or drugs. OBSTETRICAL HISTORY: She is a 1, para 1. REVIEW OF SYSTEMS: Negative. PHYSICAL EXAMINATION: GENERAL: No acute distress. HEART: Regular. LUNGS: Clear. ABDOMEN: Soft and nontender. PELVIC EXAM: Somewhat limited but no tenderness or masses noted. Pelvic ultrasound done on 01/23 revealed uterine dimensions of 6.6 x 4.3 x 5.2. The uterus is retroflexed. Small fluid collection was visualized in the endometrial cavity near the left cornu measuringapproximately 1 cm. Ovaries were normal. ASSESSMENT AND PLAN: Severe dysmenorrhea status post ablation for menorrhagia electing definitive therapy. Risks of surgery have been discussed that include but are not limited to bleeding; infection; damage to the surrounding organs like her bladder, bowel, blood vessels, ureter; postop risks; abscess; need to return to the OR. The patient understands and accepts risks. NAME: LAYTON LEON DICTATOR: CATHY WAYNE M.D. DICTATED FOR: /[id number] JOB ID: [id number] History & Physical All risks, benefits and alternatives have been discussed. documented in this encounter Procedure Notes * Document, Scanned - 03/07/2011 8:31 AM CDTAssociated Order(s): CARDIAC RHYTHM STRIP ORDER documented in this encounter OR Notes * Operative - Cathy Wayne MD - 03/04/2011 3:30 PM CDT [facility] - [place] [id number] Operative Report PATIENT NAME: LAYTON LEON R#: [id number] DATE OF : 1965ACCT#: [id number] DATE OF ADMISSION: 03/04/2011ROOM#: [id number] DATE OF OPERATION: 03/04/2011 PREOPERATIVE DIAGNOSIS: Severe dysmenorrhea, hematometra, uterine fibroids. POSTOPERATIVE DIAGNOSIS: Severe dysmenorrhea, hematometra, uterine fibroids. PROCEDURE PERFORMED: Total laparoscopic hysterectomy, bilateral salpingectomy, cystoscopy. SURGEON: Cathy Wayne M.D. DEVELOPMENT ENG: Dr. Mary Caballero ANESTHESIA: General. ESTIMATED BLOOD LOSS: 100. IV FLUIDS: 1400. URINE OUTPUT: 300. PROCEDURE: After assuring informed consent, the patient was taken to the operating room, where general anesthesia was administered. She was prepped and draped in the usual sterile manner and placed in the dorsal lithotomy position. Philip catheter was placed and a white-tip roomy uterine manipulator placed. Attention focused to the abdomen, superior aspect of the umbilicus was injected. Vertical incision made and carried down to the fascia. The fascia was grasped with [employer] x2 and entered sharply, Hassancannula placed after peritoneum had been incised bluntly. Two additional ports were placed in the patient's right and left lower quadrant accommodating, a 5-mm trocar under direct vision. Attention was focused to the pelvis. The ureter was identified on the right. There were some omental and bowel adhesions to the left. These were taken down with the harmonic scalpel. A remnant of the right fallopian tube was transected and removed with the specimen. The utero-ovarian and round ligament were cauterized and transected. The anterior leaf taken down with inferior deflection of the bladder. The po sterior leaf taken down with lateral deflection of the ureter. The right uterine artery was skeletonized and cauterized. Attention focused to the left. The left utero-ovarian and fallopian tube were cauterized and transected. The anterior leaf taken down with inferior deflection of the bladder. Theposterior leaf taken down with lateral deflection of the ureter. The left uterine artery was skeleto nized and cauterized. The cervicovaginal junction was transected circumferentially, uterus was placed into the vagina. The remnant on the right fallopian tube was excised and placed into the vagina for later retrieval. The vaginal cuff was closed with three [id number] sutures of 0 PDS. Excellent hemostasis noted. Cystoscopy was performed, which revealed bilateral ureteral spill and no bladder injury. Laparoscopic inspection was performed, which revealed excellent hemostasis. All the pedicles inspected and excellent hemostasis noted. CO2 gas was allowed to escape, the umbilical port site was closed at the level of the umbilicus. All skin incisions closed with 4-0 Monocryl. Sterile dressings applied. The patient tolerated the procedure well. Sponge, lap, needle counts were correct x2. She was taken to post anesthesia recovery in stable condition. NAME: LAYTON LEON DICTATOR:CATHY WAYNE M.D. DICTATED FOR: /[id number] JOB ID: [id number] Operative Report * Operative - Ana Lopes MD - 03/04/2011 9:32 AM CDT Post-Procedure Note 03/04/2011 9:33 AM Preoperative Diagnosis: severe dysmenorrhea s/p ablative therapy, hematometria Postoperative Diagnosis: same Procedure: TLH, FLACO, cystoscopy Surgeon: Anibal Wayne MD Director [employer]: MD Jessy Kennedy MD Type of anesthesia: General Complications: none EBL: 100 cc Urine output: 300 cc Drains: philip catheter IV Fluids: crystalloid 1400 cc Brief findings: Normal sized anteverted uterus. Normal appearing ovaries and tubes with evidence ofprior tubal ligation. Small paratubal cyst noted on left. Omental adhesions along the left anteriorabdominal wall. Procedure: Please see dictation by Dr. Wayne to follow. Ana Lopes MD 03/04/2011 9:33 AM documented in this encounter Miscellaneous Notes * Miscellaneous Scans - Document, Scanned - 03/07/2011 8:31 AM CDT * Miscellaneous Scans - Document, Scanned - 03/07/2011 8:31 AM CDT * Miscellaneous Scans - Document, Scanned - 03/07/2011 8:31 AM CDT * Miscellaneous Scans - Document, Scanned - 03/07/2011 8:31 AM CDT * Miscellaneous Scans - Document, Scanned - 03/07/2011 8:31 AM CDT * Miscellaneous Scans - Document, Scanned - 03/07/2011 8:31 AM CDT * Miscellaneous Scans - Document, Scanned - 03/07/2011 8:31 AM CDT documented in this encounter Plan of Treatment Not on file documented as of this encounter Procedures Procedure Name Priority Date/Time Associated Diagnosis Comments CARDIAC RHYTHM STRIP ORDER 03/07/2011 8:31 AM CDT BLOOD TYPE VERIFICATION Today 03/04/2011 6:45 AM CDT GROSS + MICRO EXAM Today 03/04/2011 12 :00 AM CDT Dysmenorrhea documented in this encounter Results * CARDIAC RHYTHM STRIP ORDER (03/07/2011 8:31 AM CDT) Narrative Transcriptions Document, Scanned - 03/07/2011 8:31 AM CDT Scanned Document CARDIAC SERVICES ORD ERABLES * BLOOD TYPE VERIFICATION (03/04/2011 6:45 AM CDT) ABO Rh O Pos SEE BELOW [facility] Comment: Weak D testing is not performed at [facility] BLOOD SPECIMEN / Unknown 03/04/2011 6:45 AM CDT 03/04/2011 6:58 AM CDT Cathy Wayne MD LAB - BLOOD BANK ORDERABLES [facility] [address] [place] [address] * GROSS + MICRO EXAM (03/04/2011 12:00 AM CDT) [facility] Date 03/04/11 [facility] Physician(s) William WHITMORE A[facility] Gross Description [facility] Comment: The specimen is received in Formalin labeled with the patient's name, Layton Leon, and uterus and cervix. ??It consists of [...] are seen on the myometrial cut surfaces. ??Sas Developer Analyst sections of the specimen are submitted as follows: Cassettes A and B: ??Cervix. Cassettes C through F: ??Endomyometrium and serosa, including trabeculated myometrium. DAVIS:kuo Microscopic Examination [facility] Comment: Sections of the cervix show benign unremarkable histology. ??No dysplasia or malignancy is seen. ??Sections of the endomyometrium show proliferative type endometrium and benign myometrium. ??The serosa is unremarkable. ??There is no evidence of dysplasia or malignancy. ?? MC/vl Diagnosis [facility] Comment: I. ?Uterus, hysterectomy: -- ?Cervix with no pathologic diagnosis -- ?Proliferative endometrium -- ?Myometrium and serosa with no pathologic diagnosis MC/dada Casing Mixer vl [facility] Pathologist Maribell Ross MD [facility] SNOMED [facility] CPT Code 30974 [facility] ENTIRE UTERUS / Unknown 03/04/2011 03/04/2011 10:27 AM CDT Cathy Wayne MD LAB - PATHOL OGY/CYTOLOGY ORDERABLES [facility] [address] [place] [address] documented in this encounter Visit Diagnoses Diagnosis Dysmenorrhea documented in this encounter Administered Medications Inactive Administered Medications - up to 3 most recent administrations Medication Order MAR Action Action Date Dose Rate Site cefoXITIN (MEFOXIN) IVPB 2 g 2 g, at 100 mL/hr, Intravenous, ONCE, 1 dose, On Thu03/04/11 at 0830 $ Given 03/04/2011 7:15 AM CDT 2 g 100 mL/hr docusate sodium (COLACE) capsule 100 mg 100 mg, Oral, 2 TIMES DAILY, First dose on Thu03/04/11 at 1215, Until Discontinued $ Given 2011 7:58 AM CDT 100 mg $ Given 03/04/2011 9:00 PM CDT 100 mg famotidine (PEPCID) tablet 20 mg 20 mg, Oral, PRE-OP ONCE, 1 dose, On Thu03/04/11 at 0700, GIVE ONLY IF BMI is greater than 36, OR if diagnosed with hiatal hernia. $ Given 03/04/2011 6:51 AM CDT 20 mg fentaNYL (SUBLIMAZE) injection 25-50 mcg 25-50 mcg, Intravenous, POST-OP MULTIPLE, Starting on Thu03/04/11 at 0748, Until Thu03/04/11 at 1201, If ineffective at 3 minutes, increase dose to 50 mcg. May repeat every 3 minutes for a total of 150 mcg. $ Given 03/04/2011 10:14 AM CDT 50 mcg $ Given 03/04/2011 10:07 AM CDT 50 mcg $ Given 03/04/2011 10:01 AM CDT 50 mcg ketorolac (TORADOL) injection 30 mg 30 mg, Intravenous, EVERY 6 HOURS, 4 doses, First dose on Thu03/04/11 at 1215, Last dose on Thu03/05/11 at 0300, Do not administer in PACU if administered in the OR. If being used in conjunction with ibuprofen, do not give dose within 6 hours of last ibuprofen dose. PRN if not administered in the OR. $ Given 2011 2:36 AM CDT 30 mg $ Given 03/04/2011 9:00 PM CDT 30 mg $ Given 03/04/2011 3:30 PM CDT 30 mg lactated ringers infusion at 20 mL/hr, Intravenous, PRE-OP CONTINUOUS, Starting on Thu03/04/11 at 0645, Until Thu03/04/11 at 1201 $ Given 03/04/2011 6:51 AM CDT 20 mL/hr lactated ringers infusion at 125 mL/hr, Intravenous, CONTINUOUS, Starting on Thu03/04/11 at 1215, Until Thu03/05/11 at 2359 $ New Bag/Syringe 2011 12:15 AM CDT 125 mL/hr $ New Bag/Syringe 03/04/2011 3:49 PM CDT 125 mL /hr Current Rate 03/04/2011 12:15 PM CDT 125 mL/hr lidocaine (XYLOCAINE MPF) 1 % (PF) injection Infiltration, PRE-OP MULTIPLE, 3 doses, Starting on Thu03/04/11 at 0645, Until Thu03/04/11 at 1201, May be used (0.2 ml locally to anesthetize prior to insertion if patient has NKA to Lidocaine). $ Given 03/04/2011 6:51 AM CDT 0.1 mL metoclopramide (REGLAN) tablet 10 mg 10 mg, Oral, PRE-OP ONCE, 1 dose, On Thu03/04/11 at 0700, GIVE ONLY IF BMI is greater than 36, OR if diagnosed with hiatal hernia. $ Given 03/04/2011 6:51 AM CDT 10 mg morphine injection 2-4 mg 2-4 mg, Intravenous, POST-OP MULTIPLE, Starting on Thu03/04/11 at 0748, Until Thu03/04/11 at 1201, If ineffective pain control with Fentanyl 150 mcg, then give morphine sulfate 2 mg IVP for pain. If ineffective at 3 minutes, increase dose to 4 mg. May repeat every 3 minutes for a total of 10 mg. If adequate pain relief is not achieved, please page the attending anesthesiologist. $ Given 03/04/2011 11:26 AM CDT 4 mg $ Given 03/04/2011 11:16 AM CDT 4 mg $ Given 03/04/2011 11:05 AM CDT 2 mg documented in this encounter Active and Recently Administered Medications Times are shown in CDT. Scheduled Medication Order 03/03/2011 03/04/2011 2011 cefoXITIN (MEFOXIN) IVPB 2 g (COMPLETED) 2 g, at 100 mL/hr, Intravenous, ONCE, 1 dose, On Thu03/04/11 at 0830 0715 ($ Given - Provider: Sara Loaiza CRNA)0745 (Due: Rx Stopped - Provider: Sara Loaiza CRNA)0830 (Due) docusate sodium (COLACE) capsule 100 mg (CANCELED) 100 mg, Oral, 2 TIMES DAILY, First dose on Thu03/04/11 at 1215, Until Discontinued 1215 (Not Administered - Provider: Nury Navarro RN - Reason: See Comments - Comment: patient just back from surgery)2100 ($ Given - Provider: Yarely Hardy RN) 0758 ($ Given - Provider: Bam Ch RN) famotidine (PEPCID) tablet 20 mg (COMPLETED) 20 mg, Oral, PRE-OP ONCE, 1 dose, On Thu03/04/11 at 0700, GIVE ONLY IF BMI is greater than 36, OR if diagnosed with hiatal hernia. 0651 ($ Given - Provider: Norma Castro RN) fentaNYL (SUBLIMAZE) injection 25-50 mcg (CANCELED) 25-50 mcg, Intravenous, POST-OP MULTIPLE, Starting on Thu03/04/11 at 0748, Until Thu03/04/11 at 1201, If ineffective at 3 minutes, increase dose to 50 mcg. May repeat every 3 minutes for a total of 150 mcg. 1001 ($ Given - Provider: Cathy Pierre RN)1007 ($ Given - Provider: Sussy Oconnell, KIMBERLY)1014 ($ Given - Provider: Sussy Oconnell, KIMBERLY) ketorolac (TORADOL) injection 30 mg () 30 mg, Intravenous, EVERY 6 HOURS, 4 doses, First dose on Thu03/04/11 at 1215, Last dose on Thu03/05/11 at 0300, Do not administer in PACU if administered in the OR. If being used in conjunction with ibuprofen, do not give dose within 6 hours of last ibuprofen dose. PRN if not administered in the OR. 1215 (Not Administered - Provider: Nury Navarro RN - Reason: See Comments - Comment: given in at 930 in OR)1530 ($ Given - Provider: Nury Navarro RN)2100 ($ Given - Provider: Yarely Hardy, KIMBERLY) 0236 ($ Given - Provider: Agustina Jackson RN) lidocaine (XYLOCAINE MPF) 1 % (PF) injection (CANCELED) Infiltration, PRE-OP MULTIPLE, 3 doses, Starting on Thu03/04/11 at 0645, Until Thu03/04/11 at 1201, May be used (0.2 ml locally to anesthetize prior to insertion if patient has NKA to Lidocaine). 0651 ($ Given - Provider: Norma Castro RN) metoclopramide (REGLAN) tablet 10 mg (COMPLETED) 10 mg, Oral, PRE-OP ONCE, 1 dose, On Thu03/04/11 at 0700, GIVE ONLY IF BMI is greater than 36, OR if diagnosed with hiatal hernia. 0651 ($ Given - Provider: Norma Castro RN) morphine injection 2-4 mg (CANCELED) 2-4 mg, Intravenous, POST-OP MULTIPLE, Starting on Thu03/04/11 at 0748, Until Thu03/04/11 at 1201, If ineffective pain control with Fentanyl 150 mcg, then give morphine sulfate 2 mg IVP for pain. If ineffective at 3 minutes, increase dose to 4 mg. May repeat every 3 minutes for a total of 10 mg. If adequate pain relief is not achieved, please page the attending anesthesiologist. 1105 ($ Given - Provider: Sussy Oconnell RN)1116 ($ Given - Provider: Fidelia Lofton, KIMBERLY)1126 ($ Given - Provider: Fidelia Lofton RN) Continuous Medication Order 03/03/2011 03/04/2011 2011 lactated ringers infusion (CANCELED) at 20 mL/hr, Intravenous, PRE-OP CONTINUOUS, Starting on Thu03/04/11 at 0645, Until Thu03/04/11 at 1201 0651 ($ Given - Provider: Norma Castro RN) lactated ringers infusion (CANCELED) at 125 mL/hr, Intravenous, CONTINUOUS, Starting on Thu03/04/11 at 1215, Until Thu03/05/11 at 2359 1215 (Current Rate - Provider: Nury Navarro RN)1549 ($ New Bag/Syringe - Provider: Nury Navarro RN) 0015 ($ New Bag/Syringe - Provider: Agustina Jackson RN) documented in this encounter Care Teams Threader Operator Relationship Specialty Start Date End Date Adam Han MD [address] [place] [address] PCP - General 02/25/11 09/27/23 documented as of this encounter
--- OUTSIDE RECORDS SUMMARY | 2024-06-22 02:34 | XMS_ITS | Referral Summary ---
Author Organization [facility] [email or web address] Address [address] [place] [address] Care Team Providers Care Machinist Outside Name Role Phone Asad Davis MD Primary Care Provider Source Comments [facility] [email or web address],non-owned Affiliates and Associated Physician Practices is amultiple site organization consisting of ambulatory clinics and hospital sitesin [place], [place], [place] and [place]. This disclosure is being madepursuant to the Care Everywhere program and may not contain all information available regarding this patient. Last updated 18.[facility] [email or web address] Allergies Active Allergy Reactions Criticality Noted Date Comments Uhbdqfnq-Yrwawapowq-Fykibuzsq 2010 IRRITATES SKIN Medications * Be aware that medications may not be up to date on this document. Alwaysverify current medications with the patient. Medication Sig Dispensed Refills Start Date End Date Status estradiol (Vagifem) 10 MCG vaginal tablet Insert 1 (one) tablet into the vagina as directed Place tablet nightly for 2 weeks, then twice weekly. Ok to use generic 18 tablet 4 12/14/2023 Active Active Problems No known active problems Social History Tobacco Use Types Packs/Day Years [...] on file Sexual Orientation Not on file Last Filed Vital Signs Vital Sign Reading Time Taken Comments Blood Pressure 124/74 09/28/2023 3:00 PM CDT Pulse 76 12/07/2018 5:36 PM CDT Temperature 36.8 ??C (98.2 ??F) 12/07/2018 5:36 PM CD T Respiratory Rate 14 12/07/2018 5:36 PM CDT Oxygen Saturation 98% 12/07/2018 5:36 PM CDT Inhaled Oxygen Concentration - - Weight 64 kg (141 lb) 12/03/2023 2:44 PM CDT Height 160 cm (5' 3 ) 12/03/2023 2:44 PM CDT Body Mass Index 24.98 12/03/2023 2:44 PM CDT Plan of Treatment Not on file Procedures Procedure Name Priority Date/Time Associated Diagnosis Comments HEPATITIS C ANTIBODY Routine 06/11/2015 3:47 PM EXHIBIT BUILDER HIV-1 HIV-2 ANTIGEN/ANTIBODY Routine 06/11/2015 3:47 PM EXHIBIT BUILDER from Last 3 Months or Most Recently Relevant to Health Maintenance Results * HIV-1 HIV-2 ANTIGEN/ANTIBODY (06/11/2015 3:47 PM EXHIBIT BUILDER) [facility] HIV Antigen/Antibody 4th Generation NON-REACT FITO NON-REACT FITO [facility] ([facility]) Comment: A Nonreactive HIV Ag/Ab result does not exclude HIV infection since the time frame for seroconversion is variable. If acute HIV infection is suspected, a HIV-1 RNA Qualitative TMA test is recommended. PLEASE NOTE: This information has been disclosed to you from records whose confidentiality may be protected by state law. ??If your state requires such protection, then the state law prohibits you from making any further disclosure of the information without the specific written consent of the person to whom it pertains, or as otherwise permitted by law. ??A general authorization for the release of medical or other information is NOT sufficient for this purpose. The performance of this assay has not been clinically validated in patients less than 2 years old. For additional information please refer to http://education.Z-good/faq/VCC234 (This link is being provided for informational/ educational purposes only.) Test Performed at: [facility] [id number] [place], [place] ??[phone] HAFSA RUSSELL DO,MPH 06/11/2015 3:47 PM EXHIBIT BUILDER 06/11/2015 3:48 PM EXHIBIT BUILDER Cathy Wayne MD LAB - HEMATO LOGY ORDERABLES [facility] ([facility]) * HEPATITIS C ANTIBODY (06/11/2015 3:47 PM EXHIBIT BUILDER) Hepatitis C Antibody NON-REACTI VE NON-REACT FITO [facility] ([facility]) Signal/Cutoff 0.02 <1.00 [facility] ([facility]) Comment: Test Performed at: [facility] [id number] [place], [place] ??[phone] HAFSA RUSSELL DO,MPH Blood specimen (specimen) BLOOD SPECIMEN / Unknown 06/11/2015 3:47 PM EXHIBIT BUILDER 06/11/2015 3:48 PM EXHIBIT BUILDER Cathy Wayne MD LAB - CHEMIS TRY ORDERABLES [facility] ([facility]) from Last 3 Months or Most Recently Relevant to Health Maintenance Advance Directives * FULL RESUSCITATION (Latest Code Status on File) Date Activated Date Inactivated Comments 03/04/2011 12:03 PM 2011 11:59 PM Care Teams Machinist Outside Relationship Specialty Start Date End Date Asad Davis MD [address] [address] PCP - General Internal Medicine 09/28/23
--- OUTSIDE RECORDS SUMMARY | 2024-06-22 02:34 | XMS_ITS | Clinical Summary ---
Author Organization [facility] [employer] Address [address] [place] [address] Care Team Providers Care Chief Order Dispatcher Name Role Phone Asad Davis MD Primary Care Provider + [phone] Source Comments [facility] [employer],non-owned Affiliates and Associated Physician Practices is amultiple site organization consisting of ambulatory clinics and hospital sitesin [place], [place], [place] and [place]. This disclosure is being madepursuant to the Care Everywhere program and may not contain all information available regarding this patient. Last updated 18.[facility] [employer] Allergies Active Allergy Reactions Criticality Noted Date Comments Nkhwdwkp-Fpseiuivrq-Hdlvxidki 2010 IRRITATES SKIN Medications * Be aware [...] Active Active Problems No known active problems Family History Medical History Relation Name Comments Cancer Father Heart Failure Mother Relation Name Status Comments Father Mother Social History Tobacco Use Types Packs/Day Years [...] 12/03/2023 2:44 PM CDT Plan of Treatment Health Maintenance Due Date Last Done Comments COLOGUARD (AGES 45-75) - COL ON CA SCREENING 1963 COLON MONITORING 1963 COLONOSCOPY - COLON CA SCREENING 1963 CT COLONOGRAPHY - COLON CA SCREENING 1963 Colorectal Cancer Screening 1963 FIT - COLON CA SCREENING 1963 FLEX SIG - COLON CA SCREENING 1963 LIPID TESTING 1963 MAMMOGRAM 1963 PAP SMEAR 1963 DTAP/TDAP/TD VACCINES (1 - Tdap) 1982 ZOSTER VACCINE (1 of 2) 2013 DEPRESSION SCREENING 07/06/2023 COVID-19 VACCINE (2 - 2023-2 5 season) 2024 01/31/2021 INFLUENZA VACCINE (#1) 2024 , 04/24/2020, 07/14/2012 Respiratory Syncytial Virus (RSV) Vaccine Pt: or over 60 yrs (1 - 1-dose 75+ series) 2038 HEPATITIS C SCREENING Completed 06/11/2015 HIV SCREENING Completed 06/11/2015 HEPATITIS B VACCINE Aged Out No longe r eligible based on patient's age to complete this topic HIB VACCINE Aged Out No longer eligi ble based on patient's age to complete this topic HPV VACCINE Aged Out No longer eligi ble based on patient's age to complete this topic MENINGOCOCCAL VACCINE Aged Out No justice nan eligible based on patient's age to complete this topic PNEUMOCOCCAL VACCINE Aged Out No long er eligible based on patient's age to complete this topic Procedures Procedure Name Priority Date/Time Associated Diagnosis Comments HEPATITIS C ANTIBODY Routine 06/11/2015 3:47 PM MIXING TUMBLER OPERATOR HIV-1 HIV-2 ANTIGEN/ANTIBODY Routine 06/11/2015 3:47 PM MIXING TUMBLER OPERATOR from Last 3 Months or Most Recently Relevant to Health Maintenance Results * HIV-1 HIV-2 ANTIGEN/ANTIBODY (06/11/2015 3:47 PM MIXING TUMBLER OPERATOR) HIV Antigen/Antibody 4th Generation NON-REACT FITO NON-REACT FITO [facility] ([facility]) Comment: A Nonreactive HIV Ag/Ab result does [...] old. For additional information please refer to http://education.AdviceIQ/faq/TGW764 (This link is being provided for informational/ educational purposes only.) Test Performed at: [facility] [place], [place] ??[phone] HAFSA RUSSELL DO,MPH 06/11/2015 3:47 PM MIXING TUMBLER OPERATOR 06/11/2015 3:48 PM MIXING TUMBLER OPERATOR Cathy Wayne MD LAB - HEMATO LOGY ORDERABLES [facility] ([facility]) * HEPATITIS C ANTIBODY (06/11/2015 3:47 PM MIXING TUMBLER OPERATOR) Hepatitis C Antibody NON-REACTI VE NON-REACT FITO [facility] ([facility]) Signal/Cutoff 0.02 <1.00 [facility] ([facility]) Comment: Test Performed at: [facility] [id number] [place], [place] ??[phone] HAFSA RUSSELL DO,MPH Blood specimen (specimen) BLOOD SPECIMEN / Unknown 06/11/2015 3:47 PM MIXING TUMBLER OPERATOR 06/11/2015 3:48 PM MIXING TUMBLER OPERATOR Cathy Wayne MD LAB - CHEMIS TRY ORDERABLES [facility] ([facility]) from Last 3 Months or Most Recently Relevant to Health Maintenance Advance Directives * FULL RESUSCITATION (Latest Code Status on File) Date Activated Date Inactivated Comments 03/04/2011 12:03 PM 2011 11:59 PM Care Teams Chief Order Dispatcher Relationship Specialty Start Date End Date Asad Davis MD [address] [address] PCP - General Internal Medicine 09/28/23
--- OUTSIDE RECORDS SUMMARY | 2024-06-22 02:34 | XMS_ITS | Encounter Summary ---
Author Organization [facility] Address [address] [facility] [place] [address] Care Team Providers Care Care Attendant Name Role Phone Adam Han MD Primary Care Provider [phone] Reason for Visit * Reason Comments Sore Throat Ear Pain Encounter Details Date Type Department Care Team (Late st Contact Info) Description 10/20/2016 3:00 PM CDT Office Visit [facility] AT [address] [address] Provider, [facility] Exp Nameoki Strep throat (Primary Dx) Social History Tobacco Use Types [...] Sign Reading Time Taken Comments Blood Pressure 122/74 10/20/2016 3:05 PM CDT Pulse 71 10/20/2016 3:05 PM CDT Temperature 37.5 ??C (99.5 ??F) 10/20/2016 3:05 PM CD T Respiratory Rate 18 10/20/2016 3:05 PM CDT Oxygen Saturation 98% 10/20/2016 3:05 PM CDT Inhaled Oxygen Concentration - - Weight 62.6 kg (138 lb) 10/20/2016 3:05 PM CDT Height 162.6 cm (5' 4 ) 10/20/2016 3:05 PM CDT Body Mass Index 23.69 10/20/2016 3:05 PM CDT documented in this encounter Patient Instructions * Patient Instructions* Marielena Rodriguez, SUPERVISOR CIGAR MAKING MACHINE-MACHINE HOOP MAKER HELPER - 10/20/2016 3:23 PM CDT Images from the original note were not included. Drink plenty of fluids May take Tylenol or Ibuprofen as directed per package instructions Warm salt water gargles Humidifier Change toothbrush on day 3 of antibiotic (or after 6 doses) Follow up with Dr. Han If symptoms worsen or do not completely resolve. Continue use of Aleve Cold and Sinus for congestion as directed per package instructions May take OTC Zyrtec, Alesha, Claritin, or Benadryl as directed per package instructions for allergy relief Seek emergency care if severe symptoms, such as high fever, difficulty swallowing, drooling, neck pain, or severe headache occur. Strep Throat FINE GRADE BULLDOZER OPERATOR: Strep throat is a throat infection caused by bacteria. It is easily spread from person to person. Common symptoms include the following: ?? Sore, red, and swollen throat ?? Fever and headache ?? Upset stomach, abdominal pain, or vomiting ?? White or yellow patches or blisters in the back of your throat ?? Tender, swollen lumps on the sides of your neck or jaw ?? Throat pain when you swallow Call 911 for any of the following: ?? You have trouble breathing. Seek care immediately if: ?? You have new symptoms like a bad headache, stiff neck, chest pain, or vomiting. ?? You are drooling because you cannot swallow your spit. Contact your healthcare provider if: ?? You have a fever. ?? You have a rash or ear pain. ?? You have green, yellow-brown, or bloody mucus when you cough or blow your nose. ?? You are unable to drink anything. ?? You have questions or concerns about your condition or care. Treatment for strep throat may include antibiotic medicine to treat your strep throat. You should feel better within 2 to 3 days after you start antibiotics. You may return to work or school 24 hoursafter you start antibiotics. Manage strep throat: ?? Use lozenges, ice, soft foods, or popsicles to soothe your throat. ?? Drink juice, milk shakes, or soup if your throat is too sore to eat solid food. Drinking liquidscan also help prevent dehydration. ?? Gargle with salt water. Mix ?? teaspoon salt in a glass of warm water and gargle. This may help reduce swelling in your throat. ?? Do not smoke. Nicotine and other chemicals in cigarettes and cigars can cause lung damage and make your symptoms worse. Ask your healthcare provider for information if you currently smoke and needhelp to quit. E-cigarettes or smokeless tobacco still contain nicotine. Talk to your healthcare provider before you use these products. Prevent the spread of strep throat: ?? Wash your hands often. Use soap and water. Wash your hands after you use the bathroom, change a child's diapers, or sneeze. Wash your hands before you prepare or eat food. ?? Do not share food or drinks. Replace your toothbrush after you have taken antibiotics for 24 hours. Follow up with your healthcare provider as directed: Write down your questions so you remember to ask them during your visits. ?? 2016 [employer]. Information is for End User's use only and may not be sold, redistributed or otherwise used for commercial purposes. All illustrations and images included in CareNotes?? are the copyrighted property of [employer]. or [employer]. The above information is an medicaid collection specialist only. It is not intended as medical advice for individual conditions or treatments. Talk to your doctor, nurse or pharmacist before following any medical regimen to see if it is safe and effective for you. Serous Otitis Media WHAT YOU NEED TO KNOW: Serous otitis media is fluid trapped behind your tympanic membrane (eardrum), without an ear infection. Your eardrum is in your middle ear. Serous otitis media is also called otitis media with effusion. You may have fluid in your ear for months, but it usually goes away on its own. The fluid may bein one or both ears. The fluid may cause muffled sounds, and you may feel like your ears are full. Serous otitis media may be caused by an upper respiratory infection or allergies. It is most common in the fall and early spring. DISCHARGE INSTRUCTIONS: Return to the emergency department if: ?? You have a fever. ?? You have a sudden loss of hearing in your affected ear. ?? You develop a severe headache and stiff neck. ?? You have a seizure. Contact your healthcare provider if: ?? You have fluid draining from your ear. ?? You have new symptoms. ?? You have questions or concerns about your condition or care. Follow up with your healthcare provider as directed: Your ears will need to be checked regularly. You may need to see a specialist. Write down your questions so you remember to ask them during your visits. ?? 2016 [employer]. Information is for End User's use only and may not be sold, redistributed or otherwise used for commercial purposes. All illustrations and images included in CareNotes?? are the copyrighted property of [employer]. or [employer]. The above information is an medicaid collection specialist only. It is not intended as medical advice for individual conditions or treatments. Talk to your doctor, nurse or pharmacist before following any medical regimen to see if it is safe and effective for you. documented in this encounter Progress Notes * Marielena Rodriguez APRN-CNP - 10/20/2016 3:12 PM CDT History Zenobia Henley is a 51 y.o. female who presents to the clinic with Chief Complaint Patient presents with ??? Sore Throat ??? Ear Pain . Primary Care Physician is Adam Han MD. She reports the following symptoms: sinus and nasal congestion, sore throat, swollen glands, headache, sinus pain, fever, chills, bilateral ear pain and pressure, dry cough and pain while swallowing.Onset was 1 day ago. The Clinical course has been gradually worsening. Patient is drinking plenty of fluids. Positive for sick contacts at home. OTC- Mucinex DM Max strength with moderate relief. Past Medical History: Diagnosis Date ??? Diverticulitis ??? Other activity CERVIX IS CLOSED Family History Problem Relation Age of Onset ??? Heart Failure Mother ??? Cancer Father Current Outpatient Prescriptions Medication Sig Dispense Refill ??? penicillin v potassium (VEETIDS) 500 MG tablet Take 1 Tab by mouth 2 times daily for 10 days Reasons: Throat Infection 20 Tab 0 No current facility-administered medications for this visit. Allergies Allergen Reactions ??? Neosporin [Xfanhskd-Rgkwhooanf-Kejknshwo] IRRITATES SKIN Social History Social History ??? Marital status: Social History Main Topics ??? Smoking status: Current Every Day Smoker Packs/day: 0.80 Comment: denies need for patch states she has themn at home but hasn't started then heather ??? Alcohol use Yes Comment: OCCASIONAL ??? Drug use: No ??? Sexual activity: Yes Partners: Male control/ protection: Surgical Other Topics Concern Review of Systems Constitutional: Positive for fatigue, fevers, chills Eyes: Negative Ears, nose, mouth, and throat: Positive for earaches bilaterally, sinus trouble, persistent sore throat, congestion Respiratory: Positive for acute cough Cardiovascular: Negative Hematologic/lymphatic: Positive for swollen nodes The rest of the review of systems was negative. Objective: BP 122/74 (BP SITE: LEFT ARM, BP POSITION: SITTING, BP CUFF SIZE: Adult) Pulse 71 Temp 99.5 ??F (Oral) Resp 18 Ht 1.626 m (5' 4 ) Wt 62.6 kg (138 lb) SpO2 98% BMI 23.69 kg/m2 General appearance: alert, cooperative, no distress, oriented to person, place, and time Head: normocephalic, without trauma Eyes: sclera and conjunctiva clear Ears: bilateral TM with serous fluid. No erythema, retraction, or bulging Nose: nares open; no septal deviation is noted, nasal mucosa not inflamed, no maxillary tenderness Throat: no mucous membrane abnormalities, moderate oropharyngeal erythema, tonsillar hypertrophy 1+ Neck: supple Nodes: mild, benign-appearing anterior cervical adenopathy tender with palpation Lungs: breath sounds normal and symmetric; no rales or wheezes Heart: regular rhythm, normal S1 and S2, without murmurs, gallops or rubs Assessment: Encounter Diagnosis Name Primary? Strep throat Yes Plan: Patient placed on antibiotics - see orders. Patient advised of the risk of peritonsillar abscess formation. Patient advised will be infectious for 24 hours after starting antibiotics. Educational materials given. Drink plenty of fluids May take Tylenol or Ibuprofen as directed per package instructions Warm salt water gargles Humidifier Change toothbrush on day 3 of antibiotic (or after 6 doses) Continue use of Aleve Cold and Sinus as directed per package instructions for congestion May take Zyrtec daily as directed per package instructions for allergy symptoms Work note given to patient Follow up with Dr. Han If symptoms worsen or do not completely resolve. Seek emergency care if severe symptoms, such as high fever, difficulty swallowing, drooling, neck pain, or severe headache occur. Orders Placed This Encounter ??? STREP A SCREEN ??? penicillin v potassium (VEETIDS) 500 MG tablet Sig: Take 1 Tab by mouth 2 times daily for 10 days Reasons: Throat Infection Dispense: 20 Tab Refill: 0 Recent Results (from the past 24 hour(s)) STREP A SCREEN Collection Time: 10/20/16 12:00 AM Result Value Ref Range Strep A Rapid Positive (Abnormal) Negative Strep A INTERNAL CONTROL Present Lot Number [id number] Expiration Date 07/17/2018 Marielena Rodriguez APRN, FNP-GLORIA documented in this encounter Plan of Treatment Not on file documented as of this encounter Procedures Procedure Name Priority Date/Time Associated Diagnosis Comments STREP A SCREEN - POINT OF CARE (AMB) STL Routine 10/20/2016 Strep throat documented in this encounter Results * (ABNORMAL) STREP A SCREEN (10/20/2016) Strep A Rapid POCT Positive(A) Negative Strep A Internal Control Present Lot # [id number] Expiration Date 07/17/2018 Throat ENTIRE THROAT (SURFACE REGION OF NECK) / Unknown 10/20/2016 [facility] - POINT OF CARE ORDERABLES documented in this encounter Visit Diagnoses Diagnosis Strep throat- Primary Streptococcal sore throat documented in this encounter Care Teams Care Attendant Relationship Specialty Start Date End Date Adam Han MD [address] [place] [address] PCP - General 02/25/11 09/27/23 documented as of this encounter
--- OUTSIDE RECORDS SUMMARY | 2024-06-22 02:34 | XMS_ITS | Encounter Summary ---
Author Organization [facility] Address [address] [facility] [place] [address] Care Team Providers Care Vp Rheumatology Name Role Phone Adam Han MD Primary Care Provider [phone] Reason for Visit * Reason Onset Date Comments Follow-up 12/09/2018 Encounter Details Date Type Department Care Team (Late st Contact Info) Description 12/09/2018 Telephone [facility] [place] [address] [place] [address] Marielena Rodriguez APRN-CNP [address] [place] [address] Follow-up Social History Tobacco Use Types Packs/Day [...] on file documented as of this encounter Miscellaneous Notes * Telephone Encounter - Marielena Rodriguez APRN-CNP - 12/09/2018 4:55 PM CDT Courtesy follow-up phone call made to patient. Message left advising patient to call service [facility] [phone] if they have any questions or concerns. RAYSHAWN Morales 12/09/2018 4:55 PM documented in this encounter Plan of Treatment Not on file documented as of this encounter Visit Diagnoses Not on filedocumented in this encounter Care Teams Vp Rheumatology Relationship Specialty Start Date End Date Adam Han MD [address] [place] [id number] PCP - General 02/25/11 09/27/23 documented as of this encounter
--- OUTSIDE RECORDS SUMMARY | 2024-06-22 02:34 | XMS_ITS | Encounter Summary ---
Author Organization [facility] Address [address] [facility] [place] [address] Care Team Providers Care Mails Supervisor Name Role Phone Adam Han MD Primary Care Provider [phone] Encounter Details Date Type Department Care Team (Late st Contact Info) Description 03/16/2000 Orders Only [facility] [address] [place] [address] Provider, MD Amaya Social History Tobacco Use [...] Name Priority Date/Time Associated Diagnosis Comments GROSS EXAM PATHOLOGY [facility] 03/16/2000 1:57 PM CDT documented in this encounter Results * GROSS EXAM PATHOLOGY (03/16/2000 1:57 PM CDT) Result CASE NUMBER [id number] Comment: ORDERING PHYSICIAN ??AYAN YEH SPECIMEN TYPE ?Soft Tissue Date ? 03/16/2000 Physician ?Mylene Gross Description ? Specimen ??Abdominal pannicular (gross only) A panniculectomy specimen, 43 x 15 x 2 cm has unremarkable smooth brown skin ellipse with underlying yellow-yung fibrofatty soft tissue that is 2.5 cm in thickness. ??The specimen weighs 1,100 grams. ??The specimen is serially sectioned revealing unremarkable yellow-yung fibrofatty parenchyma. ??The specimen is received for gross examination only. ? RK/lmj Diagnosis ?I. ??Abdominal panniculus ?(gross examination only) rpt/ Web Ui Developer ? [facility] [place] ?Ti Coates M.D. [place]. ?03/18/2000 0943 <1> CPT code ? 8300/55689 MISCELLANEOUS SAMPLES / Unknown 03/16/2000 1:57 PM CDT 03/16/2000 1:57 PM CDT Historical Provider LAB - PATHOLOGY/C YTOLOGY ORDERABLES documented in this encounter Visit Diagnoses Not on filedocumented in this encounter Care Teams Mails Supervisor Relationship Specialty Start Date End Date Adam Han MD [address] [place] [address] PCP - General 02/25/11 09/27/23 documented as of this encounter
--- OUTSIDE RECORDS SUMMARY | 2024-06-22 02:34 | XMS_ITS | Encounter Summary ---
Author Organization [facility] Address [facility] [facility] [place] [address] Care Team Providers Care Postal Service Mail Processor Name Role Phone Asad Davis MD Primary Care Provider [phone] Reason for Visit * Reason Comments Establish Care Min inv Consult Encounter Details Date Type Department Care Team (Late st Contact Info) Description 09/28/2023 3:00 PM CDT Office Visit [facility] [address] [place] [address] Cathy Wayne MD [address] [place] [address] Dyspareunia, female (Primary Dx) Social [...] Pressure 124/74 09/28/2023 3:00 PM CDT Pulse - - Temperature - - Respiratory Rate - - Oxygen Saturation - - Inhaled Oxygen Concentration - - Weight 63 kg (139 lb) 09/28/2023 3:00 PM CDT Height 160 cm (5' 3 ) 09/28/2023 3:00 PM CDT Body Mass Index 24.62 09/28/2023 3:00 PM CDT documented in this encounter Progress Notes * Cathy Wayne MD - 09/28/2023 3:00 PM CDT New General log hauler Patient Progress Note History of Present Illness: Ms. Glasgow a 58 year old No obstetric history on file. female who presents for consult Last seen 2014. I had referred her to Dr. Patel for sexual function C/o dyspareunia. Especially with deep thrust. Has a ventral supraumbilical hernia (3cm) that does not bother her. Feels she needs to see plastics as one side larger than the other, previously saw Dr. Chakraborty and wants to see his partners. Obstetrical history: OB History No obstetric history on file. Medical history: Past Medical History: Diagnosis Date ??? Diverticulitis ??? Other activity CERVIX IS CLOSED Surgical history: Past Surgical History: Procedure Laterality Date ??? ABDOMINOPLASTY ??? Section ??? DILATION AND CURETTAGE X 2 ??? ENDOMETRIAL ABLATION ??? SURGICAL HISTORY OF 03/04/11 Total Laparoscopic Hysterectomy ??? TUBAL LIGATION, LAPAROSCOPIC Family history: Family History Problem Relation Name Age of Onset ??? Heart Failure Mother ??? Cancer Father Social history: Social History Socioeconomic History ??? Marital status: Spouse name: Not on file ??? Number of children: Not on file ??? Years of education: Not on file ??? Highest education level: Not on file Occupational History ??? Not on file Tobacco Use ??? Smoking status: Every Day Packs/day: .8 Types: Cigarettes ??? Smokeless tobacco: Not on file ??? Tobacco comments: denies need for patch states she has themn at home but hasn't started then heather Substance and Sexual Activity ??? Alcohol use: Yes Comment: OCCASIONAL ??? Drug use: No ??? Sexual activity: Yes Partners: Male control/protection: Surgical Other Topics Concern ??? Not on file Social History Narrative ??? Not on file Social Determinants of Health Financial Resource Strain: Not on file Food Insecurity: Not on file Transportation Needs: Not on file Stress: Not on file Housing Stability: Not on file Medications: No current outpatient medications on file. No current facility-administered medications for this visit. Allergies: Allergies Allergen Reactions ??? Neosporin [Fzyubvon-Vhyyzkkijt-Wijfweaox] IRRITATES SKIN Review of Systems: Pertinent items are noted in HPI. Physical examination: There were no vitals filed for this visit. There is no height or weight on file to calculate BMI. General: within normal limits Lungs: within normal limits Heart:within normal limits Abdomen: BS+, soft, NT,ND, no mass, 3 cm supraumb hernia Neurologic: alert, oriented x3, affect appropriate, no focal neurological deficits, no involuntary movements Psychiatric: Alert and Oriented x 3 Affect:within normal limits External Genitalia: within normal limits Urethral meatus: within normal limits Urethra: within normal limits Bladder: within normal limits Vagina: within normal limits Atrophic, normal caliber, tender at cuff. Adnexae: within normal limits Anus/Perineum: within normal limits Assessment and Plan: No diagnosis found. 1. Dyspareunia: check US to make sure no ovarian cause. Vaginal estrogen tabs Daily moisture and lub with sex. Partner with Peronis- will help guide him If pain were to continue, consider pelvic floor PT Aware that I rec estab care with gen protective signal operations supervisor. documented in this encounter Plan of Treatment Not on file documented as of this encounter Results * [place] SONO EXAM, TRANSVAGINAL (12/03/2023 2:26 PM CDT) Narrative Snehal Ospina - 12/03/2023 2:26 PM CDT Snehal Ospina ? 12/03/2023 ??2:27 PM Documentation in [employer]. Cathy Wayne MD PROCEDURE/NY NOR SURGICAL ORDERABLES documented in this encounter Visit Diagnoses Diagnosis Dyspareunia, female- Primary Dyspareunia Dyspareunia, female- Primary Dyspareunia documented in this encounter Care Teams Postal Service Mail Processor Relationship Specialty Start Date End Date Asad Davis MD [address] [address] PCP - General Internal Medicine 09/28/23 documented as of this encounter
--- OUTSIDE RECORDS SUMMARY | 2024-06-22 02:34 | XMS_ITS | Patient Health Summary ---
Author Organization [facility] Address [address] [place] [address] Care Team Providers Care Terminal Makeup Operator Name Role Phone Asad Davis MD Primary Care Provider [phone] Note from [facility] [place][note 2],non-owned Affiliates and Associated Physician Practices is amultiple site organization consisting of ambulatory clinics and hospital sitesin [place], [place], [place] and [place]. This disclosure is being madepursuant to the Care Everywhere program and may not contain all information available regarding this patient. Last updated 18.[facility] Allergies * Rulgzxhe-Gucecyuafi-Vcvywjtwu(IRRITATES SKIN) Medications * Be aware that medications may not be up to date on this document. Alwaysverify current medications with the patient. * estradiol (Vagifem) 10 MCG vaginal tablet(Started 12/14/2023) Insert 1 (one) tablet into the vagina as directed Place tablet nightly for 2 weeks, then twice weekly. Ok to use generic 4 refills by 12/13/2024 Active Problems No known active problems Social History Tobacco Use Types Packs/Day Years Used Date Smoking Tobacco: Former Cigarettes Tobacco Cessation:Counseling Given: Not Answered Comments:denies need for patch states she has themn at home but hasn't started then heatehr Alcohol Use Standard Drinks/Week Comments Yes 0 [...] Mass Index 24.98 12/03/2023 2:44 PM CDT Procedures * HI SONO EXAM, TRANSVAGINAL(Performed 12/03/2023) Performed for Dyspareunia, female * IMAGING/RADIOLOGY/XRAY RESULTS ORDER(Performed 12/03/2023) * STREP A SCREEN - POINT OF CARE (AMB) STL(Performed 10/20/2016) Performed for Strep throat * HEPATITIS C ANTIBODY(Performed 06/11/2015) * RPR W REFLEX CONFIRM(Performed 06/11/2015) * HEPATITIS B SURFACE ANTIGEN W RFLX CONFIRMATION(Performed 06/11/2015) * HIV-1 HIV-2 ANTIGEN/ANTIBODY(Performed 06/11/2015) * CHLAMYDIA+GC ABHIJIT PAP VIAL(Performed 06/11/2015) * CANCER ANTIGEN (CA)125 BLOOD(Performed 05/06/2012) * CULTURE URINE(Performed 05/06/2012) * DERMATOPATHOLOGY(Performed 2012) * CARDIAC RHYTHM STRIP ORDER(Performed 03/07/2011) * BLOOD TYPE VERIFICATION(Performed 03/04/2011) * GROSS + MICRO EXAM(Performed 03/04/2011) * GROSS + MICRO EXAM(Performed 03/04/2011) Performed for Dysmenorrhea * TYPE + SCREEN PANEL(Performed 02/25/2011) * CBC W AUTO DIFFERENTIAL(Performed 02/25/2011) * GROSS + MICRO EXAM(Performed 10/22/2006) * PATHOLOGY/GENETICS HISTORICAL-ONBASE(Performed 10/22/2006) * GROSS EXAM PATHOLOGY(Performed 03/16/2000) * PATHOLOGY/GENETICS HISTORICAL-ONBASE(Performed 03/16/2000) * URINALYSIS - POINT OF CARE (AMB) [facility](Performed 07/06/1998) Results * HI SONO EXAM, TRANSVAGINAL (12/03/2023 2:26 PM CDT) Narrative Snehal Ospina - 12/03/2023 2:26 PM CDT Snehal Ospina ? 12/03/2023 ??2:27 PM Documentation in [employer]. Cathy Wayne MD PROCEDURE/IN NOR SURGICAL ORDERABLES * IMAGING RADIOLOGY XRAY RESULTS ORDER (12/03/2023) Anatomical Region Laterality Modality Other Narrative 12/03/2023 Ordered by an unspecified provider. Scanned Document IMAGING * (ABNORMAL) STREP A SCREEN (10/20/2016) Pathologist [facility] Strep A Rapid POCT Positive(A) Negative Strep A Internal Control Present Lot # [id number] Expiration Date 07/17/2018 Throat ENTIRE THROAT (SURFACE REGION OF NECK) / Unknown 10/20/2016 Marielena Rodriguez APRN-HAND TAPPER LAB - POINT OF CARE ORDERABLES * HIV-1 HIV-2 ANTIGEN/ANTIBODY (06/11/2015 3:47 PM [employer]CHNIC[employer]) Pathologist [facility] HIV Antigen/Antibody 4th Generation NON-REACT FITO NON-REACT FITO [facility] ([facility]) Comment: A Nonreactive HIV Ag/Ab result does [...] old. For additional information please refer to http://education.Drive.SG/faq/TWH320 (This link is being provided for informational/ educational purposes only.) Test Performed at: [facility] [address] [place], [place] ??[phone] HAFSA RUSSELL DO,MPH 06/11/2015 3:47 PM [employer] 06/11/2015 3:48 PM [employer] Cathy Wayne MD LAB - HEMATO LOGY ORDERABLES [facility]) * RPR W REFLEX CONFIRM (06/11/2015 3:47 PM [employer]) RPR NON-REACTI VE NON-REACT FITO [facility] ([facility]) Comment: REPORT COMMENT: FASTING:NO Test Performed at: [facility] [address] [place], [place] ??[phone] HAFSA RUSSELL DO,MPH 06/11/2015 3:47 PM [employer] 06/11/2015 3:48 PM [employer] Cathy Wayne MD LAB - CHEMIS TRY ORDERABLES Performing Organization Address City/[facility] Co de Phone Number [facility]) * HEPATITIS B SURFACE ANTIGEN W RFLX CONFIRMATION (06/11/2015 3:47 PM [employer]) Hepatitis B Virus Surface Antigen NON-REACTI VE NON-REACT FITO [facility] ([facility]) Comment: Test Performed at: [facility] [address] [place], [place] ??[phone] HAFSA RUSSELL DO,MPH Blood specimen (specimen) BLOOD SPECIMEN / Unknown 06/11/2015 3:47 PM [employer] 06/11/2015 3:48 PM [employer] Cathy Wayne MD LAB - CHEMIS TRY ORDERABLES [facility] ([facility]) * HEPATITIS C ANTIBODY (06/11/2015 3:47 PM [employer]) Hepatitis C Antibody NON-REACTI VE NON-REACT FITO [facility]) Signal/Cutoff 0.02 <1.00 [facility]) Comment: Test Performed at: [facility] [address] [place], [place] ??[phone] HAFSA RUSSELL DO,MPH Blood specimen (specimen) BLOOD SPECIMEN / Unknown 06/11/2015 3:47 PM [employer] 06/11/2015 3:48 PM [employer]CHN[employer] Cathy Wayne MD LAB - CHEMIS TRY ORDERABLES Performing Organization Address [facility] de Phone Number [facility]) * CHLAMYDIA+GC ABHIJIT PAP VIAL (06/11/2015 3:30 PM TECH[employer]) Pathologist [facility] Chlamydia trachomatis RNA TMA NOT DETECTED NOT DETECTED [facility] ([facility]) Neisseria gonorrhoeae RNA TMA NOT DETECTED NOT DETECTED [facility]) See Note [facility]) Comment: This test was performed using the APTQueue-it COMBO2 Assay ([employer] The analytical performance characteristics of this assay, when used to test SurePath specimens have been determined by [employer]. ?? REPORT COMMENT: SPECIMEN TYPE->VAGINAL SWAB Test Performed at: [facility] [address] [place], [place] ??[phone] HAFSA RUSSELL DO,MPH Vaginal swab (specimen) 06/11/2015 3:30 PM [employer] 06/12/2015 8:50 AM TECHNIC[employer] Narrative [facility]) - 06/13/2015 1:00 PM [employer]CH[employer] Specimen Type->Vaginal swab Cathy Wayne MD LAB - MICROB IOLOGY ORDERABLES Performing Organization Address [facility] de Phone Number [facility] ([facility]) * CANCER ANTIGEN (CA)125 BLOOD (05/06/2012 4:40 PM CDT) Pathologist [facility] CA 125 4 <21 U/mL [facility] ([facility]) Comment: This test was performed using the Siemens Chemiluminescent method. Values obtained from different assay methods cannot be used interchangeably. CA 125 levels, regardless of value, should not be interpreted as absolute evidence of the presence or absence of disease. Test Performed at: [facility] [address] [place] ??[phone] HAFSA RUSSELL DO,MPH Venous blood specimen (specimen) 05/06/2012 4:40 PM CDT 05/06/2012 4:40 PM CDT Cathy Wayne MD LAB - CHEMIS TRY ORDERABLES [facility] ([facility]) * (ABNORMAL) CULTURE URINE (05/06/2012 4:40 PM CDT) Urine Culture Routine SEE NOTE(A) [facility] ([facility]) Comment: ??CULTURE, URINE, ROUTINE ?MICRO NUMBER: ?[id number] ??TEST STATUS: ? FINAL ??SPECIMEN SOURCE: ?? URINE, CLEAN CATCH ??SPECIMEN QUALITY: ??ADEQUATE ??RESULT: ?10,000-50,000 CFU/mL of Escherichia coli ?E.coli ?INT ?? KARLA ?? AMPICILLIN ? S ? 4 ?? AMP/SULBACTAM ?S ? <=2 ?? CEFAZOLIN ?S ? <=4 ?? CEFEPIME ? S ? <=1 ?? CEFTRIAXONE ?S ? <=1 ?? CIPROFLOXACIN ?R ? >=4 ?? ERTAPENEM ?S ? <=0.5 ?? GENTAMICIN ? R ? >=16 ?? IMIPENEM ? S ? <=1 ?? LEVOFLOXACIN ? R ? >=8 ?? NITROFURANTOIN ? S ? <=16 ?? TOBRAMYCIN ? I ? 8 ?? TRIMETHOPRIM/SULFA ? S ? <=20 Legend: S = Susceptible ??I = Intermediate ??R = Resistant ??NS = Not Susceptible * = Not Tested ??NR = Not Reported ??nn = See Therapy Comments REPORT COMMENT: SPECIMEN TYPE->URINE Test Performed at: [facility] [employer] [address] ??[phone] [facility] Urine specimen (specimen) MISCELLANEOUS SAMPLES / Unknown 05/06/2012 4:40 PM CDT 05/06/2012 4:40 PM CDT Narrative [facility] ([facility]) - 05/08/2012 9:00 AM CDT Specimen Type->Urine Cathy Wayne MD LAB - MICROB IOLOGY ORDERABLES [facility] ([facility]) * PATHOLOGY TISSUE FOR DERMATOLOGY (2012 12:00 AM CDT) Result CASE: [id number] PATIENT: LAYTON HENLEY PATHOLOGIC DIAGNOSIS: A. ??Central chest: BLUE NEVUS, COMMON TYPE B. ??Rt chin: INTRADERMAL MELANOCYTIC NEVUS CLINICAL DATA: A: ??Blue nevus. B: ??Nevus. GROSS DESCRIPTION: A: ??Received is one formalin filled container labeled with the patient's name and designated central chest. The specimen consists of a shave biopsy measuring 3x2x1 mm. Jar 0. B: ??Received is one formalin filled container labeled with the patient's name and designated rt chin. The specimen consists of a shave biopsy measuring 3x2x1 mm. Jar 0. MICROSCOPIC DESCRIPTION: SPECIMEN ??A: Within the dermis there are oval, spindle-shaped and dendritic melanocytes with melanophages. SPECIMEN ??B: There are nests of melanocytes within the dermis that mature with depth. Final Diagnosis performed by Soheila Wilkins M.D. Electronically signed 03/10/2012 1:51:40PM [facility] Comment: Performed at: Dermatopathology Laboratory [facility] Department of Dermatology [address] [place] [address] Phone number: [phone] Toll Free: [phone] FAX: [phone] 2012 03/09/2012 Jevon Lucero LAB - PATHOLOGY/CYTO LOGY ORDERABLES Performing Organization Address [facility] Co de Phone Number [facility] [address] Lab [address] [phone] * CARDIAC RHYTHM STRIP ORDER (03/07/2011 8:31 AM CDT) Narrative Transcriptions Document, Scanned - 03/07/2011 8:31 AM CDT Scanned Document CARDIAC SERVICES ORD ERABLES * BLOOD TYPE VERIFICATION (03/04/2011 6:45 AM CDT) ABO Rh O Pos SEE BELOW [facility] Comment: Weak D testing is not performed at [facility] BLOOD SPECIMEN / Unknown 03/04/2011 6:45 AM CDT 03/04/2011 6:58 AM CDT Cathy Wayne MD LAB - BLOOD BANK ORDERABLES Performing Organization Address City/[facility] Co de Phone Number [facility] [address] [place] [address] * GROSS + MICRO EXAM (03/04/2011 12:00 AM CDT) Only the most recent of3 resultswithin the time period is included. Result CASE NUMBER [id number] Comment: ORDERING PHYSICIAN ??CATHY ELKINS SPECIMEN TYPE ?Uterus Date ? 03/04/2011 Physician ?William Gross Description ? The specimen is received in Formalin labeled with the patient's name, Layton Henley, and uterus and cervix. ??It consists [...] are seen on the myometrial cut surfaces. ??Data Analyst Report Writer sections of the specimen are submitted as follows Cassettes A and B ?? Cervix. Cassettes C through F ?? Endomyometrium and serosa, including trabeculated myometrium. [facility] Microscopic Exam ? Sections of the cervix [...] and serosa with no pathologic diagnosis MC/vl Marker Machine ? vl Pathologist ?Maribell Ross MD [employer]. ?2011 1231 <3> CPT code ? 53739 MISCELLANEOUS SAMPLE S / Unknown 03/04/2011 03/04/2011 10:27 AM CDT Historical Provider LAB - PATHOLOGY/C YTOLOGY ORDERABLES * TYPE + SCREEN PANEL (02/25/2011 3:52 PM CDT) ABO Rh O Pos SEE BELOW [facility] Comment: Weak D testing is not performed at [facility] Antibody Screen Neg [facility] Previous History Check Done No historical blood type. ??Blood type confirmation needed prior to transfusion. [facility] BLOOD SPECIMEN / Unknown 02/25/2011 3:52 PM CDT 02/25/2011 4:07 PM CDT Cathy Wayne MD LAB - BLOOD BANK ORDERABLES Performing Organization Address City/State/[facility] Co de Phone Number [facility] [address] [place] [address] * (ABNORMAL) CBC W AUTO DIFFERENTIAL (02/25/2011 3:52 PM CDT) WBC 10.4(H) 4.0 - 10.0 K/CUMM [facility] RBC 4.33 3.80 - 5.80 M/CUMM [facility] Hemoglobin 13.8 12.0 - 16.0 gm/dl [facility] Hematocrit 40.1 37.0 - 47.0 % [facility] MCV 92.6 80.0 - 100.0 fl [facility] MCH 31.9 26.0 - 34.0 pg [facility] MCHC 34.4 31.0 - 37.0 gm/dl [facility] Platelet Count 301 150 - 400 K/CUMM [facility] RDW 13.3 11.5 - 14.5 % [facility] Granulocytes % 51.9 50 - 70 % [facility] Lymphocytes % 37.3 20 - 40 % [facility] Monocytes % 8.5 0 - 12 % [facility] Eosinophils % 1.7 0 - 5 % [facility] Basophils % 0.3 0 - 2 % [facility] Granulocytes Absolute 5.39 2.00 - 7.00 x1000/cmm [facility] Lymphocytes Absolute 3.87 0.80 - 4.00 x1000/cmm [facility] Monocytes Absolute 0.88 0.00 - 1.20 x1000/cmm [facility] Eosinophils Absolute 0.18 0.00 - 0.50 x1000/cmm [facility] Basophils Absolute 0.03 0.00 - 0.20 x1000/cmm [facility] BLOOD SPECIMEN / Unknown 02/25/2011 3:52 PM CDT 02/25/2011 4:07 PM CDT Cathy Wayne MD LAB - HEMATO LOGY ORDERABLES Performing Organization Address [facility]/ZIP Co de Phone Number [facility] [address] [place] [address] * PATHOLOGY/GENETICS HISTORICAL-ONBASE (10/22/2006) Only the most recent of2 resultswithin the time period is included. 10/22/2006 Narrative [facility] - 01/09/2011 2:32 PM CDT Jeremiah Betancur ? 01/09/2011 ??2:32 PM Historical Provider LAB - CHEMISTRY O RDERABLES Performing Organization Address [facility] de Phone Number [facility] * GROSS EXAM PATHOLOGY (03/16/2000 1:57 PM [...] ?I. ??Abdominal panniculus ?(gross examination only) rpt/ [facility] ? [facility] [place] ?Ti Coates M.D. [employer]. ?03/18/2000 0943 <1> CPT code ? 8300/68277 MISCELLANEOUS SAMPLES / Unknown 03/16/2000 1:57 PM CDT 03/16/2000 1:57 PM CDT Historical Provider LAB - PATHOLOGY/C YTOLOGY ORDERABLES * URINALYSIS - POINT OF CARE (AMB) [facility] (07/06/1998 12:00 AM [employer]) Glucose UA neg [facility] Bilirubin UA POCT neg [facility] Ketones UA POCT neg REPLACED BY [facility] Specific [place] UA 1.005 REPLACED BY [facility] Blood Urine POCT trace REPLACED BY [facility] pH UA 7 COUNT INCLUDES THE [facility] Protein UA trace [facility] Urobilinogen UA neg REPLACED BY [facility] Nitrite UA neg [facility] WBC UA ++ COUNT INCLUDES THE [facility] Urine specimen (specimen) 07/06/1998 Cathy Wayne MD LAB - POINT OF CARE ORDERABLES [facility] Care Teams Terminal Makeup Operator Relationship Specialty Start Date End Date Asad Davis MD [address] [place] [address] PCP - General Internal Medicine 09/28/23
--- OUTSIDE RECORDS SUMMARY | 2024-06-22 02:35 | XMS_ITS | Encounter Summary ---
Author Organization [facility] Address [address] [place] [address] Care Team Providers Care Information Technology Data Analyst Name Role Phone Asad Davis MD Primary Care Provider [phone] Encounter Details Date Type Department Care Team (Late st Contact Info) Description 04/19/2024 External Device Data [facility] ABSTRACTION Provider, Abstract NO ADDRESS ON FILE Social History Tobacco Use Types Packs/Day Years Used Date Smoking Tobacco: Former Cigarettes Q uit: 2019 Alcohol Use Standard Drinks/Week Comments Yes 5 (1 standard drink = 0.6 oz pur e alcohol) Sex and Gender Information Value Date Recorded Sex Assigned at Not on file Gender Identity Not on file Sexual Orientation Not on file documented as of this encounter Plan of Treatment Not on file documented as of this encounter Visit Diagnoses Not on filedocumented in this encounter Care Teams Information Technology Data Analyst Relationship Specialty Start Date End Date Asad Davis MD [address] [address] PCP - General Internal Medicine 10/24/22 documented as of this encounter
--- OUTSIDE RECORDS SUMMARY | 2024-06-22 02:35 | XMS_ITS | Encounter Summary ---
Author Organization [facility] Address [address] [place] [address] Care Team Providers Care Assault Boat Coxswain Name Role Phone Asad Davis MD Primary Care Provider [phone] Encounter Details Date Type Department Care Team (Late st Contact Info) Description 02/24/2024 External Device Data [facility] ABSTRACTION Provider, Abstract [...] on filedocumented in this encounter Care Teams Assault Boat Coxswain Relationship Specialty Start Date End Date Asad Davis MD [address] [address] PCP - General Internal Medicine 10/24/22 documented as of this encounter
--- OUTSIDE RECORDS SUMMARY | 2024-06-22 02:35 | XMS_ITS | Encounter Summary ---
Author Organization [employer] [facility] Address [address] [place] [address] Care Team Providers Care Corporate Intern Name Role Phone Asad Davis MD Primary Care Provider [phone] Reason for Referral * Echocardiography (Routine) - Closed Specialty Diagnoses / Procedures Referred By Contac t Referred To Contact Cardiology Diagnoses LOGAN (dyspnea on exertion) Procedures ECHO Kamron Puckett MD [address] [facility] [address] [place] [address] [facility] Non Invasive Cardiology [address] [place] [address] Referral ID Status Reason Start Date Expiration Date Visits Re quested Visits Authorized [id number] Closed 11/04/2022 07/05/2023 1 1 Reason for Visit * Echocardiography (Routine) - Closed Specialty Diagnoses / Procedures Referred By Contac t Referred To Contact Cardiology Diagnoses LOGAN (dyspnea on exertion) Procedures ECHO Kamron Puckett MD [address] [place] [address] [facility] [address] [place] [address] Referral ID Status Reason Start Date Expiration Date Visits Re quested Visits Authorized [id number] Closed 11/04/2022 07/05/2023 1 1 Encounter Details Date Type Department Care Team (Latest Contact Info) Description 12/18/2022 1:34 PM CDT - 12/18/2022 11:59 PM CDT Hospital Encounter [facility] Non Invasive Cardiology [address] [place] [address] Kamron Mora MD [address] [facility] [address] [place] [address] Discharge Disposition: Home or Self Care Social History Tobacco Use Types Packs/Day Years Used Date Smoking Tobacco: Never Assessed Sex and Gender Information Value Date Recorded Sex Assigned at Not on file Gender Identity Not on file Sexual Orientation Not on file COVID-19 Exposure Response Date Recorded In the last 10 days, have yo u been in contact with someone who was confirmed or suspected to have Coronavirus/COVID-19? No / Unsure 12/17/2022 6:17 PM CDT documented as of this encounter Plan of Treatment Not on file documented as of this encounter Procedures Procedure Name Priority Date/Time Associated Diagnosis Comments ECHO COMPLETE Routine 12/18/2022 3:21 PM CDT LOGAN (dyspnea on exertion) documented in this encounter Results * ECHO COMPLETE (12/18/2022 3:21 PM CDT) EJECTION FRACTION EF: INTERFACE SYSTEM 12/18/2022 2:34 PM CDT Narrative INTERFACE SYSTEM - 12/18/2022 3:30 PM CDT [facility] [address] [place] [address] [email or web address] Transthoracic Echocardiogram Patient: ? Zenobia Henley MRN: ? [id number] Study ID: ?[id number] Gender: ?F : ? 1965 Age: ? 57 Race: ?CAU Height ? 160cm Study Date: ?12/18/2022 Weight: ?67.1kg Access. #: ? [id number] Account #: ? [id number] BP: *Referring Physician:* Kamron Mora M.D. ([facility]) Kamron Mora M.D. ([facility]) *Ordering Physician:* ??Kamron Mora M.D. ([facility]) Regional Operations Manager: sales project manager: Nurse: STUDY CONCLUSIONS: SUMMARY: - Left ventricle: The cavity size was normal. Wall thickness was normal. ??Global systolic function is normal. The ejection fraction is 64%. - Mitral valve: Mild regurgitation. - Left atrium: The atrium is normal in size. - Right ventricle: The cavity size is normal. Systolic function is normal. - Tricuspid valve: Mild regurgitation. Cardiac Anatomy: Left ventricle: ??The cavity size was normal. Wall thickness was normal. Global systolic function is normal. LEFT VENTRICLE: ??The cavity size was normal. Wall thickness was normal. Global systolic function is normal. AORTIC VALVE: ?? Structurally normal valve. Trileaflet. ??No significant regurgitation. The mean systolic gradient is 3mm Hg. The peak systolic gradient is 6mm Hg. The LVOT to aortic valve VTI ratio is 0.73. The valve area is 2.3cm^2. The ratio of LVOT to aortic valve peak velocity is 0.68. AORTA: Aortic root: The root is normal-sized. MITRAL VALVE: ?? Structurally normal valve. ?Mild regurgitation. The mean diastolic gradient is 2mm Hg. The peak diastolic gradient is 2mm Hg. LEFT ATRIUM: ??The atrium is normal in size. RIGHT VENTRICLE: ??The cavity size is normal. Systolic function is normal. PULMONIC VALVE: ?? Structurally normal valve. ?No significant regurgitation. TRICUSPID VALVE: ?? Structurally normal valve. ?Mild regurgitation. RIGHT ATRIUM: ??The atrium was normal in size. SYSTEMIC VEINS: Inferior vena cava: The IVC is normal-sized. PERICARDIUM: ?? There is no pericardial effusion. Measurements Left ventricle ? Value ?Ref BETO, LAX ? (L) 2.9 ?? cm ? 3.8 - 5.2 BETO/bsa, LAX ? (L) 1.7 ?? cm/m^2 ?? 2.3 - 3.1 BETO, LAX chord ? (N) 4.4 ?? cm ? 3.8 - 5.2 ESD, LAX chord ? (N) 2.9 ?? cm ? 2.2 - 3.5 BETO/bsa, LAX chord ? (N) 2.6 ?? cm/m^2 ?? 2.3 - 3.1 ESD/bsa, LAX chord ? (N) 1.7 ?? cm/m^2 ?? 1.3 - 2.1 FS, LAX chord ?(N) 33 ?% ?27 - 45 IVS, ED ?(H) 1.0 ?? cm ? 0.6 - 0.9 PW, ED ? (H) 1.2 ?? cm ? 0.6 - 0.9 EDV, 2-p ? (N) 79 ?ml ? 46 - 106 ESV, 2-p ? (N) 29 ?ml ? 14 - 42 EF, 2-p ?(N) 64 ?% ?54 - 74 SV, 2-p ?51 ?ml ? --------- SV/bsa, 2-p ?29.7 ??ml/m^2 ?? --------- E', lat molly, TDI ? (N) 10.7 ??cm/sec ?? >=10.0 E/e', lat molly, TDI ? (N) 8 ?<=13 E', med molly, TDI ? (N) 8.8 ?? cm/sec ?? >=7.0 E/e', med molly, TDI ? 10 ? --------- E', avg, TDI ? 9.8 ?? cm/sec ?? --------- E/e', avg, TDI ? (N) 9 ?<=14 LVOT ? Value ?Ref Diam, S ?2.0 ?? cm ? --------- Area ? 3.1 ?? cm^2 ? --------- Peak janet, S ?0.83 ??m/sec ?--------- VTI, S ? 19.5 ??cm ? --------- Right ventricle ?Value ?Ref BETO minor ax, A4C base (L) 2.4 ?? cm ? 2.5 - 4.1 BETO minor ax, A4C mid ??(N) 2.2 ?? cm ? 1.9 - 3.5 BETO major ax, A4C ?(H) 8.5 ?? cm ? 5.9 - 8.3 TAPSE, MM ?(N) 2.4 ?? cm ? >=1.7 Pressure, S ?19 ?mm Hg ?--------- S' lateral ? (N) 11.1 ??cm/sec ?? >=9.5 Left atrium ?Value ?Ref AP dim, ES ? (N) 3.2 ?? cm ? 2.7 - 3.8 AP dim index, ES ? (N) 1.9 ?? cm/m^2 ?? 1.5 - 2.3 SI dim, A4C ?4.8 ?? cm ? --------- Area ES, A4C ? (N) 16 ?cm^2 ? <=20 Area/bsa ES, A4C ? 9.59 ??cm^2/m^2 --------- SI dim, A2C ?5.6 ?? cm ? --------- SI dim, shorter ?4.8 ?? cm ? --------- Vol, ES, 1-p A4C ? (N) 42 ?ml ? 22 - 52 Vol/bsa, ES, 1-p A4C ?? (N) 25 ?ml/m^2 ?? 11 - 40 Vol, ES, 1-p A2C ? (N) 48 ?ml ? 22 - 52 Vol/bsa, ES, 1-p A2C ?? (N) 28 ?ml/m^2 ?? 13 - 40 Vol, ES, 2-p ? 48 ?ml ? --------- Vol/bsa, ES, 2-p ? (N) 28 ?ml/m^2 ?? 16 - 34 LA/Ao root ratio ? 1.07 ? --------- Right atrium ? Value ?Ref SI dim, ES, A4C ?(N) 5.0 ?? cm ? 3.4 - 5.3 SI dim/bsa, ES, A4C ?(N) 2.9 ?? cm/m^2 ?? 1.9 - 3.1 Area, ES, A4C ?(N) 12 ?cm^2 ? 10 - 18 Vol, ES, 1-p A4C ? 22 ?ml ? --------- Vol/bsa, ES, 1-p A4C ?? (N) 13 ?ml/m^2 ?? 9 - 33 Aortic valve ? Value ?Ref Peak v, S ?1.2 ?? m/sec ?--------- Mean v, S ?0.76 ??m/sec ?--------- VTI, S ? 26.6 ??cm ? --------- Mean grad, S ? 3 ? mm Hg ?--------- Peak grad, S ? 6 ? mm Hg ?--------- LVOT/AV, VTI ratio ? 0.73 ? --------- GRAEME, VTI ? 2.3 ?? cm^2 ? --------- GRAEME/bsa, VTI ? 1.35 ??cm^2/m^2 --------- LVOT/AV, Vpeak ratio ? 0.68 ? --------- GRAEME, Vmax ?2.1 ?? cm^2 ? --------- GRAEME/bsa, Vmax ?1.25 ??cm^2/m^2 --------- Mitral valve ? Value ?Ref Mean v, D ?0.59 ??m/sec ?--------- Peak E ? 0.85 ??m/sec ?--------- Peak A ? 0.73 ??m/sec ?--------- Decel time ? 209 ?? ms ? --------- Mean grad, D ? 2 ? mm Hg ?--------- Peak grad, D ? 2 ? mm Hg ?--------- Peak E/A ratio ? 1.2 ?--------- A-VTI ?29.9 ??cm ? --------- Pulmonic valve ? Value ?Ref Peak v, S ?0.72 ??m/sec ?--------- Peak grad, S ? 2 ? mm Hg ?--------- Tricuspid valve ?Value ?Ref TR peak v ?(N) 1.9 ?? m/sec ?<=2.8 Peak RV-RA grad, S ? 14 ?mm Hg ?--------- Aortic root ?Value ?Ref Root diam, ? 3.0 ?? cm ? --------- Ascending aorta ?Value ?Ref AAo AP diam, S ? 3.2 ?? cm ? --------- AAo AP diam/bsa, S ? 1.9 ?? cm/m^2 ?? --------- Systemic veins ? Value ?Ref Estimated RA pressure ?5 ? mm Hg ?--------- Legend: (L) ??and ??(H) ??rose values outside specified reference range. (N) ??nixon values inside specified reference range. Procedure data: Procedure information: ??A transthoracic echocardiogram was performed. Scanning was performed from the parasternal, apical, and subcostal acoustic windows. ?Transthoracic echocardiogram. ??Complete 2D, complete spectral Doppler, and color Doppler. ??Birthdate: ??Patient birthdate: 1965. ??Age: ??Patient is 57year(s) old. ??Sex: ?? gender: female. ??Height: ??160cm. 63in. ??Weight: 67.1kg. 148lb. ??Body mass index: ??26.2kg/m^2. ??Body surface area: ?1.7m^2. Study date: ??Study date: 12/18/2022. Study time: 02:34 PM. ?Prepared and Electronically Authenticated Reginald Brown [id number]:07 Procedure Note Reginald Brown MD - 12/18/[address] [address] [email or web address] Transthoracic Echocardiogram Patient: Zenobia Henley Study ID: [id number] Gender: F : 1965 Age: 57 Race: CAU Height 160cm Study Date: 12/18/2022 Weight: 67.1kg Access. #: [id number] BP: *Referring Physician:* Kamron Mora M.D. ([facility]) Kamron Mora M.D.([facility]) *Ordering Physician:* Kamron Mora M.D. ([facility]) Regional Operations Manager: sales project manager: Nurse: STUDY CONCLUSIONS: SUMMARY: - Left ventricle: The cavity size was normal. Wall thickness was normal. Global systolic function is normal. The ejection fraction is 64%. - Mitral valve: Mild regurgitation. - Left atrium: The atrium is normal in size. - Right ventricle: The cavity size is normal. Systolic function isnormal. - Tricuspid valve: Mild regurgitation. Cardiac Anatomy: Left ventricle: The cavity size was normal. Wall thickness was normal.Global systolic function is normal. LEFT VENTRICLE: The cavity size was normal. Wall thickness was normal.Global systolic function is normal. AORTIC VALVE: Structurally normal valve. Trileaflet. No significant regurgitation. The mean systolic gradient is 3mm Hg. The peak systolic gradient is 6mm Hg. The LVOT to aortic valve VTI ratio is 0.73. The valvearea is 2.3cm^2. The ratio of LVOT to aortic valve peak velocity is 0.68. AORTA: Aortic root: The root is normal-sized. MITRAL VALVE: Structurally normal valve. Mild regurgitation. Themean diastolic gradient is 2mm Hg. The peak diastolic gradient is 2mm Hg. LEFT ATRIUM: The atrium is normal in size. RIGHT VENTRICLE: The cavity size is normal. Systolic function isnormal. PULMONIC VALVE: Structurally normal valve. No significantregurgitation. TRICUSPID VALVE: Structurally normal valve. Mild regurgitation. RIGHT ATRIUM: The atrium was normal in size. SYSTEMIC VEINS: Inferior vena cava: The IVC is normal-sized. PERICARDIUM: There is no pericardial effusion. Measurements Left ventricle Value Ref BETO, LAX (L) 2.9 cm 3.8 - 5.2 BETO/bsa, LAX (L) 1.7 cm/m^2 2.3 - 3.1 BETO, LAX chord (N) 4.4 cm 3.8 - 5.2 ESD, LAX chord (N) 2.9 cm 2.2 - 3.5 BETO/bsa, LAX chord (N) 2.6 cm/m^2 2.3 - 3.1 ESD/bsa, LAX chord (N) 1.7 cm/m^2 1.3 - 2.1 FS, LAX chord (N) 33 % 27 - 45 IVS, ED (H) 1.0 cm 0.6 - 0.9 PW, ED (H) 1.2 cm 0.6 - 0.9 EDV, 2-p (N) 79 ml 46 - 106 ESV, 2-p (N) 29 ml 14 - 42 EF, 2-p (N) 64 % 54 - 74 SV, 2-p 51 ml --------- SV/bsa, 2-p 29.7 ml/m^2 --------- E', lat molly, TDI (N) 10.7 cm/sec >=10.0 E/e', lat molly, TDI (N) 8 <=13 E', med molly, TDI (N) 8.8 cm/sec >=7.0 E/e', med molly, TDI 10 --------- E', avg, TDI 9.8 cm/sec --------- E/e', avg, TDI (N) 9 <=14 LVOT Value Ref Diam, S 2.0 cm --------- Area 3.1 cm^2 --------- Peak janet, S 0.83 m/sec --------- VTI, S 19.5 cm --------- Right ventricle Value Ref BETO minor ax, A4C base (L) 2.4 cm 2.5 - 4.1 BETO minor ax, A4C mid (N) 2.2 cm 1.9 - 3.5 BETO major ax, A4C (H) 8.5 cm 5.9 - 8.3 TAPSE, MM (N) 2.4 cm >=1.7 Pressure, S 19 mm Hg --------- S' lateral (N) 11.1 cm/sec >=9.5 Left atrium Value Ref AP dim, ES (N) 3.2 cm 2.7 - 3.8 AP dim index, ES (N) 1.9 cm/m^2 1.5 - 2.3 SI dim, A4C 4.8 cm --------- Area ES, A4C (N) 16 cm^2 <=20 Area/bsa ES, A4C 9.59 cm^2/m^2 --------- SI dim, A2C 5.6 cm --------- SI dim, shorter 4.8 cm --------- Vol, ES, 1-p A4C (N) 42 ml 22 - 52 Vol/bsa, ES, 1-p A4C (N) 25 ml/m^2 11 - 40 Vol, ES, 1-p A2C (N) 48 ml 22 - 52 Vol/bsa, ES, 1-p A2C (N) 28 ml/m^2 13 - 40 Vol, ES, 2-p 48 ml --------- Vol/bsa, ES, 2-p (N) 28 ml/m^2 16 - 34 LA/Ao root ratio 1.07 --------- Right atrium Value Ref SI dim, ES, A4C (N) 5.0 cm 3.4 - 5.3 SI dim/bsa, ES, A4C (N) 2.9 cm/m^2 1.9 - 3.1 Area, ES, A4C (N) 12 cm^2 10 - 18 Vol, ES, 1-p A4C 22 ml --------- Vol/bsa, ES, 1-p A4C (N) 13 ml/m^2 9 - 33 Aortic valve Value Ref Peak v, S 1.2 m/sec --------- Mean v, S 0.76 m/sec --------- VTI, S 26.6 cm --------- Mean grad, S 3 mm Hg --------- Peak grad, S 6 mm Hg --------- LVOT/AV, VTI ratio 0.73 --------- GRAEME, VTI 2.3 cm^2 --------- GRAEME/bsa, VTI 1.35 cm^2/m^2 --------- LVOT/AV, Vpeak ratio 0.68 --------- GRAEME, Vmax 2.1 cm^2 --------- GRAEME/bsa, Vmax 1.25 cm^2/m^2 --------- Mitral valve Value Ref Mean v, D 0.59 m/sec --------- Peak E 0.85 m/sec --------- Peak A 0.73 m/sec --------- Decel time 209 ms --------- Mean grad, D 2 mm Hg --------- Peak grad, D 2 mm Hg --------- Peak E/A ratio 1.2 --------- A-VTI 29.9 cm --------- Pulmonic valve Value Ref Peak v, S 0.72 m/sec --------- Peak grad, S 2 mm Hg --------- Tricuspid valve Value Ref TR peak v (N) 1.9 m/sec <=2.8 Peak RV-RA grad, S 14 mm Hg --------- Aortic root Value Ref Root diam, 3.0 cm --------- Ascending aorta Value Ref AAo AP diam, S 3.2 cm --------- AAo AP diam/bsa, S 1.9 cm/m^2 --------- Systemic veins Value Ref Estimated RA pressure 5 mm Hg --------- Legend: (L) and (H) rose values outside specified reference range. (N) nixon values inside specified reference range. Procedure data: Procedure information: A transthoracic echocardiogram was performed.Scanning was performed from the parasternal, apical, and subcostal acousticwindows. Transthoracic echocardiogram. Complete 2D, complete spectralDoppler, and color Doppler. Birthdate: Patient birthdate: 1965. Age:Patient is 57year(s) old. Sex: gender: female. Height: 160cm. 63in.Weight: 67.1kg. 148lb. Body mass index: 26.2kg/m^2. Body surface area:1.7m^2. Study date: Study date: 12/18/2022. Study time: 02:34 PM. Preparedand Electronically Authenticated Reginald Brown [id number] Kamron Mora MD ORDERABLES Performing Organization Address City/State/[facility] Co de Phone Number INTERFACE SYSTEM Refer to clinic/hospital department documented in this encounter Visit Diagnoses Diagnosis LOGAN (dyspnea on exertion) Other dyspnea and respiratory abnormality documented in this encounter Care Teams Corporate Intern Relationship Specialty Start Date End Date Asad Davis MD [address] [address] PCP - General Internal Medicine 10/24/22 documented as of this encounter
--- OUTSIDE RECORDS SUMMARY | 2024-06-22 02:35 | XMS_ITS | Encounter Summary ---
Author Organization [facility] Address [address] [place] [address] Care Team Providers Care School Librarian Name Role Phone Asad Davis MD Primary Care Provider [phone] Reason for Visit * Reason Comments Follow Up LOGAN f/u 6 months Encounter Details Date Type Department Care Team (Latest Contact Info) Description 04/28/2023 3:15 PM CDT Office Visit [facility] Heart and Vascular - [facility] [address] [place] [address] [place] [address] Kamron Mora MD [address] [place] [address] Coronary artery calcification (Primary Dx) Social History Tobacco Use Types Packs/Day Years Used Date Smoking Tobacco: Former Cigarettes Q uit: 2019 Tobacco Cessation:Counseling Given: Not Answered Alcohol Use Standard Drinks/Week Comments Yes 5 (1 standard drink = 0.6 oz pur e alcohol) Sex and Gender Information Value Date Recorded Sex Assigned at Not on file Gender Identity Not on file Sexual Orientation Not on file documented as of this encounter Last Filed Vital Signs Vital Sign Reading Time Taken Comments Blood Pressure 138/76 04/28/2023 3:22 PM CDT Pulse 70 04/28/2023 3:22 PM CDT Temperature - - Respiratory Rate - - Oxygen Saturation 95% 04/28/2023 3:22 PM CDT Inhaled Oxygen Concentration - - Weight 70.8 kg (156 lb) 04/28/2023 3:22 PM CDT Height 160 cm (5' 3 ) 04/28/2023 3:22 PM CDT Body Mass Index 27.63 04/28/2023 3:22 PM CDT documented in this encounter Progress Notes * Kamron Mora MD - 04/28/2023 3:54 PM CDT HISTORY OF PRESENT ILLNESS Zenobia Henley, a 58 y.o. female presents with a Chief Complaint of Follow Up (LOGAN f/u 6 months) Subjective HPI Reports having seen a neurologist, suspect that she has a neurologic disorder as cause of sxs. No CP. No PND, orthopnea or LE edema. No claudication. No palpitations. No syncope. REVIEW OF SYSTEMS Review of Systems Constitutional: Negative for unexpected weight change. HENT: Negative for nosebleeds. Respiratory: Negative for cough. Gastrointestinal: Negative for abdominal pain and blood in stool. Genitourinary: Negative for hematuria. Musculoskeletal: Negative for myalgias. Current Outpatient Medications Medication Sig Dispense Refill carbidopa-levodopa (PARCOPA) 25-250 mg Tablet, Rapid Dissolve Take 1/2 (One- HALF) TABLET BY MOUTH THREE TIMES DAILY. ezetimibe (ZETIA) 10 mg tablet Take 1 Tablet (10 mg) by mouth daily. 90 Tablet 4 [DISCONTINUED] metoprolol tartrate (LOPRESSOR) 50 mg tablet Take 1 tablet (50mg) the night before the procedure and 1 tablet (50mg) the morning of the procedure. 2 Tablet 0 No current facility-administered medications for this visit. Objective PHYSICAL EXAM BP 138/76 Pulse 70 Ht 5' 3 (1.6 m) Wt 70.8 kg (156 lb) SpO2 95% BMI 27.63 kg/m?? Physical Exam Neck: Vascular: No carotid bruit or JVD. Cardiovascular: Rate and Rhythm: Normal rate and regular rhythm. Pulses: Posterior tibial pulses are 2+ on the right side and 2+ on the left side. Heart sounds: Normal heart sounds. No murmur heard. No S3 sounds. Pulmonary: Effort: Pulmonary effort is normal. Breath sounds: Normal breath sounds. No wheezing or rales. Abdominal: Palpations: Abdomen is soft. Tenderness: There is no abdominal tenderness. Musculoskeletal: Right lower leg: No edema. Left lower leg: No edema. Procedures Lab Results Component Value Date/Time CHOLTOT 200 (H) 12/25/2022 03:21 PM HDL 93 12/25/2022 03:21 PM LDLCALC 92 12/25/2022 03:21 PM TRIGLYCERIDE 61 12/25/2022 03:21 PM Assessment ASSESSMENT and PLAN: ICD-10-CM ICD-9-CM 1. Coronary artery calcification I25.10 414.00 I25.84 414.4 Reviewed results of CV testing including cardiac CTA which showed no obstruct ds, echo which showednormal LV function, no concerning findings, and normal proBNP, indicating that sxs not due to CV disease. Cardiac CTA showed mild coronary atherosclerosis, coronary calcium score 40. Although absolute score is low, many women her age have score of 0, thus her longterm ASCVD risk is increased compared toother women her age. Recent lipid panel above. Decided to start ezetimibe 10 mg qd to reduce ASCVD risk. Measure blood pressure while at rest and relaxed. Keep record of blood pressure readings. Goal is average < 130/80. Call office or email via [employer] if blood pressure is elevated. Reviewed dietary and lifestyle modifications to reduce risk of future cardiovascular events. * Adonis Scott - 04/28/2023 3:22 PM CDT Zenobia denies chest pain, shortness of breath, dizziness, or swelling in her legs. documented in this encounter Miscellaneous Notes * Patient Instructions - Kamron Mora MD - 04/28/2023 3:51 PM CDT Start ezetimibe 10 mg once daily Measure blood pressure while at rest and relaxed. Keep record of blood pressure readings. Goal is average < 130/80. Call office or email via [employer] if blood pressure is elevated. documented in this encounter Plan of Treatment Not on file documented as of this encounter Visit Diagnoses Diagnosis Coronary artery calcification- Primary documented in this encounter Care Teams School Librarian Relationship Specialty Start Date End Date Asda Davis MD [address] [address] PCP - General Internal Medicine 10/24/22 documented as of this encounter
--- OUTSIDE RECORDS SUMMARY | 2024-06-22 02:35 | XMS_ITS | Encounter Summary ---
Author Organization [facility] Address [address] [place] [address] Care Team Providers Care College Or University Business Manager Name Role Phone Asad Davis MD Primary Care Provider [phone] Encounter Details Date Type Department Care Team (Late st Contact Info) Description 02/25/2024 External Device Data STL ABSTRACTION Provider, Abstract [...] on filedocumented in this encounter Care Teams College Or University Business Manager Relationship Specialty Start Date End Date Asad Davis MD [address] [address] PCP - General Internal Medicine 10/24/22 documented as of this encounter
--- OUTSIDE RECORDS SUMMARY | 2024-06-22 02:35 | XMS_ITS | Encounter Summary ---
Author Organization [facility] Address [address] [place] [address] Care Team Providers Care Bottom Precipitator Operator Name Role Phone Asad Davis MD Primary Care Provider [phone] Encounter Details Date Type Department Care Team (Late st Contact Info) Description 09/25/2023 External Device Data STL ABSTRACTION Provider, Abstract [...] on filedocumented in this encounter Care Teams Bottom Precipitator Operator Relationship Specialty Start Date End Date Asad Davis MD [address] [address] PCP - General Internal Medicine 10/24/22 documented as of this encounter
--- OUTSIDE RECORDS SUMMARY | 2024-06-22 02:35 | XMS_ITS | Encounter Summary ---
Author Organization [facility] Address [address] [place] [address] Care Team Providers Care Sightseeing Guide Name Role Phone Asad Davis MD Primary Care Provider [phone] Encounter Details Date Type Department Care Team (Late st Contact Info) Description 07/07/2023 External Device Data STL ABSTRACTION Provider, Abstract [...] on filedocumented in this encounter Care Teams Sightseeing Guide Relationship Specialty Start Date End Date Asad Davis MD [address] [address] PCP - General Internal Medicine 10/24/22 documented as of this encounter
--- OUTSIDE RECORDS SUMMARY | 2024-06-22 02:35 | XMS_ITS | Encounter Summary ---
Author Organization [facility] Address [address] [place] [address] Care Team Providers Care Pharmacist'S Aide Name Role Phone Asad Davis MD Primary Care Provider [phone] Encounter Details Date Type Department Care Team (Late st Contact Info) Description 03/22/2024 External Device Data STL ABSTRACTION Provider, Abstract [...] on filedocumented in this encounter Care Teams Pharmacist'S Aide Relationship Specialty Start Date End Date Asad Davis MD [address] [address] PCP - General Internal Medicine 10/24/22 documented as of this encounter
--- OUTSIDE RECORDS SUMMARY | 2024-06-22 02:35 | XMS_ITS | Encounter Summary ---
Author Organization [facility] Address [address] [place] [address] Care Team Providers Care Orthopaedic Technologist Name Role Phone Asad Davis MD Primary Care Provider [phone] Encounter Details Date Type Department Care Team (Late st Contact Info) Description 08/01/2023 External Device Data STL ABSTRACTION Provider, Abstract [...] on filedocumented in this encounter Care Teams Orthopaedic Technologist Relationship Specialty Start Date End Date Asad Davis MD [address] [address] PCP - General Internal Medicine 10/24/22 documented as of this encounter
--- OUTSIDE RECORDS SUMMARY | 2024-06-22 02:35 | XMS_ITS | Encounter Summary ---
Author Organization [facility] Address [address] [place] [address] Care Team Providers Care Commutator Repairer Name Role Phone Asad Davis MD Primary Care Provider [phone] Encounter Details Date Type Department Care Team [...] on filedocumented in this encounter Care Teams Commutator Repairer Relationship Specialty Start Date End Date Asad Davis MD [address] [address] PCP - General Internal Medicine 10/24/22 documented as of this encounter
--- OUTSIDE RECORDS SUMMARY | 2024-06-22 02:35 | XMS_ITS | Continuity of Care Document ---
Author Organization [facility] Address [address] [place] [address] Phone Care Team Providers Care Cmm Programmer Name Role Phone Dioni Reddy MD Unavailable Unavailable Procedures Procedure Date Office/outpatient Visit, Est Office/outpatient Visit, Est Eye Exam & Treatment Eye Exam Established Pt Advance Directives Directive Yes / No Effective Date File Name No Information Encounters Encounter Description Practice Location Reason(s) For Visit Diagnoses Date Provider Providers Copied on Encounter Office/outpa tient Visit, [facility], [address], [place], [place], [id number], [place] tel:[phone] SEC Amilcar GRIFFIN Professional No Information [address]. [address] [facility] [place], [id number], [place]. tel:[phone] Office/outpa tient Visit, [facility], [address], [place], [place], [id number], [place] tel:[phone] SEC Amilcar GABY Professional No Information 0-[address]. [address] [facility], [facility] [place], [id number], [place]. tel:[phone] Referring Provider: Jevon French, [address], [place], [address]. [phone] [facility], [address] [place], [place] [address] [address], [place], [place], [id number], tel:[phone] [facility] No Information [address] Krishnasamy Shaheen. [address], [facility], . [phone] [facility], [address] [place] [address] [facility] [address] [place], [place], [id number], [place] tel:[phone] [facility] No Information [address] Krishnas[address] Shaheen. [address], [facility], . tel:[phone] Family History Family Member Type Diagnosis Age At Onset No Information Payers Payer name Insurance type Covered democrat ID Authorlauraa ticase(s) No Information Social History Type Description Quantity Date Captured Comments Sex Female Smoking Status No Information Chief Complaint And Reason For Visit No Information Reason For Referral Reason For Referral No Information History Of Present Illness Encounter Date Complaint History Of Prese nt Illness No Information Functional Status Date Functional Assessmen t No Information Instructions Date Instruction Additional Infor mation No Information Assessments Type Assessment Date No Information Patient Care Teams Name Effective Dates (start - stop) Status Members No Information
--- OUTSIDE RECORDS SUMMARY | 2024-06-22 02:35 | XMS_ITS | Encounter Summary ---
Author Organization [employer] [facility] Address [address] [place] [address] Care Team Providers Care Farm Machinery Assembler Name Role Phone Asad Davis MD Primary Care Provider Reason for Referral * Nuclear Medicine (Routine) - Closed Specialty Diagnoses / Procedures Referred By Contac t Referred To Contact Radiology Diagnoses LOGAN (dyspnea on exertion) Procedures STRESS TEST, EXERCISE TREADMILL RI CV STRS TST XERS&/OR RX CONT ECG W/O I&R RI CV STRS TST XERS&/OR RX CONT ECG I&R ONLY Kamron Mora MD [address] [facility] [address] [place] [address] [facility] Nuclear Cardiology [address] [place] [address] Referral ID Status Reason Start Date Expiration Date Visits Re quested Visits Authorized [id number] Closed 11/10/2022 12/11/2022 1 1 Reason for Visit * Nuclear Medicine (Routine) - Closed Specialty Diagnoses / Procedures Referred By Contac t Referred To Contact Radiology Diagnoses LOGAN (dyspnea on exertion) Procedures STRESS TEST, EXERCISE TREADMILL RI CV STRS TST XERS&/OR RX CONT ECG W/O I&R RI CV STRS TST XERS&/OR RX CONT ECG I&R ONLY Kamron Mora MD [address] [facility] [address] [place] [address] [facility] Nuclear Cardiology [address] [place] [address] Referral ID Status Reason Start Date Expiration Date Visits Re quested Visits Authorized [id number] Closed 11/10/2022 12/11/2022 1 1 Encounter Details Date Type Department Care Team (Latest Contact Info) Description 12/18/2022 1:33 PM CDT - 12/18/2022 11:59 PM CDT Hospital Encounter [facility] Nuclear Medicine [address] [place] [address] Kamron Mora MD [address] [facility] [address] [place] [address] Discharge Disposition: Home or Self Care Social [...] Procedure Name Priority Date/Time Associated Diagnosis Comments STRESS TEST EXERCISE TREADMILL Routine 12/18/2022 2:04 PM CDT LOGAN (dyspnea on exertion) documented in this encounter Results * STRESS TEST, EXERCISE TREADMILL (12/18/2022 2:04 PM CDT) EJECTION FRACTION EF: INTERFACE SYSTEM 12/18/2022 2:00 PM CDT Narrative INTERFACE SYSTEM - 12/18/2022 3:14 PM CDT [facility] [address] [place] [address] [email or web address]stlouismo Stress Electrography Arias Protocol Patient: ? Zenobia Henley MRN: ? [id number] Study ID: Gender: ?F : ? 1965 Age: ? 57 Race: ?CAU Height Study Date: ?12/18/2022 Weight: Access. #: ? [id number] Account #: ? [id number] BP: *Referring Physician:* Kamron Mora M.D. ([facility]) *Ordering Physician:* ??Kamron Mora M.D. ([facility]) Fly Fishing Guide: locomotive switch operator: Nurse: Indications: SOB / LOGAN. STUDY CONCLUSIONS: SUMMARY: - Procedure narrative: Treadmill exercise testing was performed using the ??Arias protocol. The patient exercised for 5 min 31 sec, to a maximal work ??rate of 7mets. Exercise was terminated dyspnea and fatigue. - Stress data: There is a hypertensive response to stress. The patient ??experienced 3/10 chest pain during stress which resolved with rest. ??Functional capacity was decreased. - Stress ECG conclusions: There were 0.75mm ST depressions upsloping which did ??not meet strict criteria for ischemia. Impressions: ??Clinical correlation recommended. Cardiac Anatomy: Baseline ECG: ?? Normal sinus rhythm. ??Poor R-wave progression in the precordial leads. Stress protocol: - Baseline HR: 61bpm BP: 125/79 - Stress HR: 145bpm BP: 210/81 Stress results: ?? Maximal heart rate during stress was 145bpm (90% of maximal predicted heart rate). The maximal predicted heart rate was 161bpm. The target heart rate was 137bpm. There is a hypertensive response to stress. The rate-pressure product for the peak heart rate and blood pressure was 31903xi Hg/min. The patient experienced 3/10 chest pain during stress which resolved with rest. Functional capacity was decreased. ?Treadmill exercise testing was performed using the Arias protocol. The patient exercised for 5 min 31 sec, to a maximal work rate of 7mets. Exercise was terminated dyspnea and fatigue. Stress ECG: ??There were 0.75mm ST depressions upsloping which did not meet strict criteria for ischemia. Procedure data: Consent: ??The risks, benefits, and alternatives to the procedure were explained to the patient and informed consent was obtained. ??Procedure information: ??The patient arrived at the laboratory. A baseline ECG was recorded. Surface ECG leads and automatic cuff blood pressure measurements were monitored. ??Study completion: ??There were no complications. Arias protocol. Stress electrography. ??Birthdate: ??Patient birthdate: 1965. ??Age: ??Patient is 57year(s) old. ??Sex: ?? gender: female. Study date: ??Study date: 12/18/2022. Study time: 02:00 PM. ??Location: ??[facility]. ?Prepared and Electronically Authenticated Reginald Brown [id number] Procedure Note Reginald Brown MD - 12/18/[address] [address] [email or web address]/stlouismo Stress Electrography Arias Protocol Patient: Zenobia Henley Study ID: Gender: F : 1965 Age: 57 Race: CAU Height Study Date: 12/18/2022 Weight: Access. #: [id number] BP: *Referring Physician:* Kamron Mora M.D. ([facility]) *Ordering Physician:* Kamron Mora M.D. ([facility]) Fly Fishing Guide: locomotive switch operator: Nurse: Indications: SOB / LOGAN. STUDY CONCLUSIONS: SUMMARY: - Procedure narrative: Treadmill exercise testing was performed usingthe Arias protocol. The patient exercised for 5 min 31 sec, to a maximalwork rate of 7mets. Exercise was terminated dyspnea and fatigue. - Stress data: There is a hypertensive response to stress. The patient experienced 3/10 chest pain during stress which resolved with rest. Functional capacity was decreased. - Stress ECG conclusions: There were 0.75mm ST depressions upsloping whichdid not meet strict criteria for ischemia. Impressions: Clinical correlation recommended. Cardiac Anatomy: Baseline ECG: Normal sinus rhythm. Poor R-wave progression in the precordial leads. Stress protocol: - Baseline HR: 61bpm BP: 125/79 - Stress HR: 145bpm BP: 210/81 Stress results: Maximal heart rate during stress was 145bpm (90% ofmaximal predicted heart rate). The maximal predicted heart rate was 161bpm. Thetarget heart rate was 137bpm. There is a hypertensive response to stress. The rate-pressure product for the peak heart rate and blood pressure [id number] Hg/min. The patient experienced 3/10 chest pain during stress whichresolved with rest. Functional capacity was decreased. Treadmill exercisetesting was performed using the Arias protocol. The patient exercised for 5 min31 sec, to a maximal work rate of 7mets. Exercise was terminated dyspneaand fatigue. Stress ECG: There were 0.75mm ST depressions upsloping which did notmeet strict criteria for ischemia. Procedure data: Consent: The risks, benefits, and alternatives to the procedure were explained to the patient and informed consent was obtained. Procedure information: The patient arrived at the laboratory. A baseline ECG was recorded. Surface ECG leads and automatic cuff blood pressuremeasurements were monitored. Study completion: There were no complications. Arias protocol. Stress electrography. Birthdate: Patient birthdate: 1965. Age: Patient is 57year(s) old. Sex: gender:female. Study date: Study date: 12/18/2022. Study time: 02:00 PM. Location:[facility]. Prepared and Electronically Authenticated Reginald Brown [id number]:14:42 Kamron Mora MD SC ORDERABLES INTERFACE SYSTEM Refer to clinic/hospital department documented in this encounter Visit Diagnoses Diagnosis LOGAN (dyspnea on exertion) Other dyspnea and respiratory abnormality documented in this encounter Care Teams Farm Machinery Assembler Relationship Specialty Start Date End Date Asad Davis MD [address] [facility] [address] [place] [address] PCP - General Internal Medicine 10/24/22 documented as of this encounter
--- OUTSIDE RECORDS SUMMARY | 2024-06-22 02:35 | XMS_ITS | Encounter Summary ---
Author Organization [facility] Address [address] [place] [address] Care Team Providers Care Java Swing Developer Name Role Phone Asad Davis MD Primary Care Provider [phone] Encounter Details Date Type Department Care Team (Late st Contact Info) Description 08/21/2023 External Device Data STL ABSTRACTION Provider, Abstract [...] on filedocumented in this encounter Care Teams Java Swing Developer Relationship Specialty Start Date End Date Asad Davis MD [address] [address] PCP - General Internal Medicine 10/24/22 documented as of this encounter
--- OUTSIDE RECORDS SUMMARY | 2024-06-22 02:35 | XMS_ITS | Encounter Summary ---
Author Organization [facility] Address [address] [place] [address] Care Team Providers Care Employment Law Specialist Name Role Phone Asad Davis MD Primary Care Provider [phone] Encounter Details Date Type Department Care Team (Late st Contact Info) Description 02/23/2024 External Device Data STL ABSTRACTION Provider, Abstract [...] on filedocumented in this encounter Care Teams Employment Law Specialist Relationship Specialty Start Date End Date Asad Davis MD [address] [address] PCP - General Internal Medicine 10/24/22 documented as of this encounter
--- OUTSIDE RECORDS SUMMARY | 2024-06-22 02:35 | XMS_ITS | Encounter Summary ---
Author Organization [facility] Address [address] [place] [address] Care Team Providers Care Burlap Roll Coverer Name Role Phone Asad Davis MD Primary Care Provider [phone] Encounter Details Date Type Department Care Team (Late st Contact Info) Description 09/18/2023 External Device Data STL ABSTRACTION Provider, Abstract [...] on filedocumented in this encounter Care Teams Burlap Roll Coverer Relationship Specialty Start Date End Date Asad Davis MD [address] [address] PCP - General Internal Medicine 10/24/22 documented as of this encounter
--- OUTSIDE RECORDS SUMMARY | 2024-06-22 02:35 | XMS_ITS | Encounter Summary ---
Author Organization [facility] Address [address] [place] [address] Care Team Providers Care Nib Assembler Name Role Phone Asad Davis MD Primary Care Provider [phone] Encounter Details Date Type Department Care Team [...] on filedocumented in this encounter Care Teams Nib Assembler Relationship Specialty Start Date End Date Asad Davis MD [address] [address] PCP - General Internal Medicine 10/24/22 documented as of this encounter
--- OUTSIDE RECORDS SUMMARY | 2024-06-22 02:35 | XMS_ITS | Encounter Summary ---
Author Organization [facility] Address [address] [place] [address] Care Team Providers Care Skin Diver Name Role Phone Asad Davis MD Primary Care Provider [phone] Encounter Details Date Type Department Care Team [...] on filedocumented in this encounter Care Teams Skin Diver Relationship Specialty Start Date End Date Asad Davis MD [address] [address] PCP - General Internal Medicine 10/24/22 documented as of this encounter
--- OUTSIDE RECORDS SUMMARY | 2024-06-22 02:35 | XMS_ITS | Encounter Summary ---
Author Organization [facility] Address [address] [place]: Epic Prelude ADT [place] [address] Care Team Providers Care Labor Relations Supervisor Name Role Phone Asad Davis MD Primary Care Provider [phone] Encounter Details Date Type Department Care Team (Latest Contact Info) Description 11/04/2022 Travel Social History Tobacco Use Types Packs/Day [...] suspected to have Coronavirus/COVID-19? No / Unsure 11/04/2022 9:07 AM CDT documented as of this encounter Plan of Treatment Not on file documented as of this encounter Visit Diagnoses Not on filedocumented in this encounter Care Teams Labor Relations Supervisor Relationship Specialty Start Date End Date Asad Davis MD [address] [phone] PCP - General Internal Medicine 10/24/22 documented as of this encounter
--- OUTSIDE RECORDS SUMMARY | 2024-06-22 02:35 | XMS_ITS | Encounter Summary ---
Author Organization [facility] Address [address] [place] [address] Care Team Providers Care Supervisor Cutting Department Name Role Phone Asad Davis MD Primary Care Provider [phone] Encounter Details Date Type Department Care Team (Late st Contact Info) Description 07/31/2023 External Device Data STL ABSTRACTION Provider, Abstract [...] filedocumented in this encounter Care Teams Supervisor Cutting Department Relationship Specialty Start Date End Date Asad Davis MD [address] [address] PCP - General Internal Medicine 10/24/22 documented as of this encounter
--- OUTSIDE RECORDS SUMMARY | 2024-06-22 02:35 | XMS_ITS | Encounter Summary ---
Author Organization [facility] Address [address] [place] [address] Care Team Providers Care Integrated Marketing Manager Name Role Phone Asad Davis MD Primary Care Provider [phone] Encounter Details Date Type Department Care Team (Late st Contact Info) Description 12/15/2023 External Device Data STL ABSTRACTION Provider, Abstract [...] on filedocumented in this encounter Care Teams Integrated Marketing Manager Relationship Specialty Start Date End Date Asad Davis MD [address] [address] PCP - General Internal Medicine 10/24/22 documented as of this encounter
--- OUTSIDE RECORDS SUMMARY | 2024-06-22 02:35 | XMS_ITS | Encounter Summary ---
Author Organization [facility] Address [address] [place] [address] Care Team Providers Care Station Examiner Name Role Phone Asad Davis MD Primary Care Provider [phone] Encounter Details Date Type Department Care Team (Late st Contact Info) Description 02/09/2024 External Device Data STL ABSTRACTION Provider, Abstract [...] on filedocumented in this encounter Care Teams Station Examiner Relationship Specialty Start Date End Date Asad Davis MD [address] [address] PCP - General Internal Medicine 10/24/22 documented as of this encounter
--- OUTSIDE RECORDS SUMMARY | 2024-06-22 02:35 | XMS_ITS | Encounter Summary ---
Author Organization [facility] Address [address] [place] [address] Care Team Providers Care Screen Vent Binder Name Role Phone Asad Davis MD Primary Care Provider [phone] Encounter Details Date Type Department Care Team (Late st Contact Info) Description 06/17/2023 External Device Data STL ABSTRACTION Provider, Abstract [...] on filedocumented in this encounter Care Teams Screen Vent Binder Relationship Specialty Start Date End Date Asad Davis MD [address] [address] PCP - General Internal Medicine 10/24/22 documented as of this encounter
--- OUTSIDE RECORDS SUMMARY | 2024-06-22 02:35 | XMS_ITS | Encounter Summary ---
Author Organization [facility] Address [address] [place] [address] Care Team Providers Care Packing Line Operator Name Role Phone Asad Davis MD Primary Care Provider [phone] Reason for Visit * Reason Onset Date Comments Heart Murmur 03/12/2023 Encounter Details Date Type Department Care Team (Late st Contact Info) Description 03/12/2023 Telephone [facility] [place] [address] [facility] [address] [place] [address] Kamron Mora MD [facility] [address] [facility] [address] [place], [place] [id number] Heart Murmur Social History Tobacco Use Types Packs/Day Years [...] encounter Miscellaneous Notes * Telephone Encounter - Sera Zhang RN - 03/13/2023 10:42 AM CDT Spoke with pt regarding recommendations and results. Pt verb understanding. Scheduled OV. * Telephone Encounter - Kamron Mora MD - 03/12/2023 2:25 PM CDT Call patient with results: Cardiac CTA showed very mild coronary atherosclerosis, coronary calcium score 40, no obstructive disease. Results of CV testing, including echo which showed normal LV function, no concerning findings, and normal proBNP indicate that LOGAN not due to CV disease Although she has only very mild coronary atherosclerosis, many women her age have none at all, thusher fpc risk of PA is increased compared to other women her age. Suggest ROV to review results, ensure appropriate preventive measures are addressed documented in this encounter Plan of Treatment Not on file documented as of this encounter Visit Diagnoses Not on filedocumented in this encounter Care Teams Packing Line Operator Relationship Specialty Start Date End Date Asda Davis MD [address] [phone] PCP - General Internal Medicine 10/24/22 documented as of this encounter
--- OUTSIDE RECORDS SUMMARY | 2024-06-22 02:35 | XMS_ITS | Clinical Summary ---
Author Organization [facility] Address [address] [place] [place] [address] Phone Care Team Providers Care Plasma Processing Centrifuge Operator Name Role Phone Asad Davis MD Primary Care Provider [phone] Allergies Active Allergy Reactions Criticality Noted Date Comments Adhesive Tape-Silicones Rash Low 11/04/2022 Medications Medication Sig Dispensed Refills Start Date End Date Status carbidopa-levodopa (PARCOPA) 25-250 mg Tablet, Rapid Dissolve Take 1/2 (One-HALF) TABLET BY MOUTH THREE TIMES DAILY. Active ezetimibe (ZETIA) 10 mg tablet Take 1 Tablet (10 mg) by mouth daily. 90 Tablet 4 04/28/2023 Active Active Problems Patient Care Coordination No te Formatting of this note migh t be different from the original. Kamron Mora MD- [facility]3] Heart & Vascular ( [facility]) Problem Noted Date Diagnosed Date Coronary artery calcification 04/28/2023 Overview (04/28/2023): No obstruct ds, coronary calcium score 40 (F, age 58) Encounters Date Type Department Care Team Description 04/19/2024 External Device Data STL ABSTRACTION Provider, Abstract from Last 3 Months Social History Tobacco Use Types Packs/Day Years [...] PM CDT Temperature - - Respiratory Rate 16 03/06/2023 8:35 AM CDT Oxygen Saturation 95% 04/28/2023 3:22 PM CDT Inhaled Oxygen Concentration - - Weight 70.8 kg (156 lb) 04/28/2023 3:22 PM CDT Height 160 cm (5' 3 ) 04/28/2023 3:22 PM CDT Body Mass Index 27.63 04/28/2023 3:22 PM CDT Plan of Treatment Health Maintenance Due Date Last Done Comments DTAP/TDAP/TD VACCINES (1 - Tdap) 1982 CERVICAL CANCER SCREENING 1993 BREAST CANCER SCREENING 2003 COLORECTAL SCREENING 2008 Colorectal Cancer Screening 2008 FIT-DNA Q 3 years 2008 FIT/FOBT Q 1 year 2008 Flex Sig/CT Colonography Q 5 years 2008 ZOSTER VACCINE (1 of 2) 2013 RSV VACCINE (60+ or ) (1 - Risk 60-74 years 1-dose series) 2023 INFLUENZA VACCINE (#1) 2024 , 04/24/2020 PNEUMOCOCCAL VACCINE 0-64 YEARS Aged Out No longer eligible b ased on patient's age to complete this topic Care Teams Plasma Processing Centrifuge Operator Relationship Specialty Start Date End Date Asad Davis MD [address] [address] PCP - General Internal Medicine 10/24/22
--- OUTSIDE RECORDS SUMMARY | 2024-06-22 02:35 | XMS_ITS | Encounter Summary ---
Author Organization [facility] Address [address] [place] [address] Care Team Providers Care Supervisory Historian Name Role Phone Asad Davis MD Primary Care Provider [phone] Reason for Referral * CT Scan (Routine) - Closed Specialty Diagnoses / Procedures Referred By Contac t Referred To Contact Radiology Diagnoses LOGAN (dyspnea on exertion) Abnormal cardiovascular stress test Procedures [facility] Kamron Mora MD [address] [place] [address] [place] [address] Referral ID Status Reason Start Date Expiration Date Visits Re quested Visits Authorized [id number] Closed 12/23/2022 07/05/2023 1 1 Reason for Visit * Reason Onset Date Comments Results 12/19/2022 Stress test and echo Encounter Details Date Type Department Care Team (Late st Contact Info) Description 12/19/2022 Telephone [facility] Heart and Vascular - [facility] [address] [facility] [address] [place] [phone] Kamron Mora MD [address] [facility] [address] [place] [address] Results (Stress test and echo) Social History Tobacco Use Types Packs/Day Years [...] PM CDT documented as of this encounter Miscellaneous Notes * Result Encounter Note - Kamron Mora MD - 01/04/2023 4:06 PM CDT Call patient with results: Labs ok. No changes. * Addendum Note - Tressa Zhang RN - 12/23/2022 3:15 PM CDTAddended by: TRESSA ZHANG on: 12/23/2022 03:15 PM Modules accepted: Orders * Telephone Encounter - Tressa Zhang RN - 12/23/2022 3:10 PM CDT Spoke with pt regarding recommendations and results. Pt verb understanding. Ordered cardiac CTA. Sent Metoprolol to pharmacy for CTA. Emailed lab orders to pt and phone number to call to schedule CTA. * Telephone Encounter - Tressa Zhang RN - 12/23/2022 3:01 PM CDT Rec'd msg from pt stating she was calling me back. * Telephone Encounter - Tressa Zhang RN - 12/23/2022 10:34 AM CDT LMOM with call back number to discuss. * Telephone Encounter - Kamron Mora MD - 12/22/2022 5:58 PM CDT Call patient with results: Echo - Normal LV function. No concerning findings. Stress test - was equivocable, she developed CP on treadmill, exercise capacity was decreased Recommend cardiac CTA definitive assessment for the presence of obstructive CAD, which will also assess the presence of atherosclerotic plaque to help inform management to reduce ASCVD risk. Remind her to get proBNP ordered at [facility] She also needs, BMP, CBC, lipid panel. * Telephone Encounter - Tressa Zhang RN - 12/19/2022 8:28 AM CDT Results of stress test and echo. documented in this encounter Plan of Treatment Not on file documented as of this encounter Procedures Procedure Name Priority Date/Time Associated Diagnosis Comments CBC WITH DIFFERENTIAL Routine 12/25/2022 3:21 PM CDT LOGAN (dyspnea on exertion) Abnormal cardiovascular stress test BRAIN NATRIURETIC PEPTIDE, BNP OR PROBNP Routine 12/25/2022 3:21 PM CDT LIPID PANEL Routine 12/25/2022 3:21 PM CDT LOGAN (dyspnea on exertion) Abnormal cardiovascular stress test BASIC METABOLIC PANEL Routine 12/25/2022 3:21 PM CDT LOGAN (dyspnea on exertion) Abnormal cardiovascular stress test documented in this encounter Results * [facility] (03/06/2023 8:43 AM CDT) 03/06/2023 8:28 AM CDT Impressions INTERFACE SYSTEM - 03/06/2023 9:04 AM CDT IMPRESSION: ?? CAD-RADS 1 Coronary Arteries: Trivial calcification in the proximal LAD. Less than 25% stenosis of the proximal LAD due to noncalcified plaque. No hemodynamically significant coronary artery stenosis. Agatston Calcium Score: 40.1 ?Low risk for future cardiac events. CAD-RADS 0 - (0% stenosis): No plaque or stenosis. Absence of CAD. CAD-RADS 1 - (<25%) Minimal stenosis or plaque with no stenosis; ?? CAD-RADS 2 - (25-49%) Mild stenosis; Mild non-obstructive CAD. ? CAD-RADS 3 - (50-69%) Moderate stenosis. ?? CAD-RADS 4A - (70-99%) Severe stenosis. ?? CAD-RADS 4B - (Left main >=50% or 3-vessel obstructive >= 70%). ?? CAD-RADS 5 - (100%) Total coronary occlusion. ?? CAD-RADS N - Non-diagnostic study; obstructive CAD cannot be excluded. Modifiers: S (stent), G (graft), V (vulnerability), D (dissection). A ?? (Anomaly) Stenoses and are reported in accordance with the CAD-RADS Coronary Artery Disease Reporting and Data System, a consensus statement of the Society of Cardiovascular Computed Tomography, [place] [employer], and [place] Society of Cardiovascular Imaging (Journal of Cardiovascular Computed Tomography 2016): ?? CAD-RADS classification should be applied on a per-patient basis for the clinically most relevant stenosis. ?? All vessels >1.5 mm in diameter should be graded for stenosis severity. ?? CAD-RADS does not apply for vessels <=1.5 mm in diameter. ?? PROCEDURE: ?? Baseline cardiac rhythm: Normal Sinus Rhythm. Heart rate: 56 BPM. ?? Agents administered: None. 100 mL of Isovue-300 contrast IV. Triple phase contrast protocol. Sai Medisoft 256-slice gated Computed tomography (CT) of the heart. Prospective electrocardiography (ECG) triggering. ?? Images obtained from the amos through 2-3 cm below the left hemidiaphragm. Images reconstructed at 73 % of the R-R interval. Limited full ohvob-[id number] contrast CT of the chest performed for review of noncardiac pathology. Curved-plane reformatted images, Maximum Intensity Projection (MIP) images and Volume Rendered (VR) images created on a 3-D Postprocessing workstation. The examination was performed with the adjustment of mA according to the patient size and/or the use of Iterative Reconstruction Technique. CT dose length product 148.69 mGy-cm. ?? Findings: Agatston Calcium Score Left main (LM) coronary artery: 40.1 Left anterior descending (LAD): 0 Circumflex coronary artery (LCX): 0 Right coronary artery (RCA): ??0 Total calcium score: ??40.1 Low risk for future cardiac events. 75% of similar patients have less coronary artery calcium. Coronary CT Angiogram: Quality of the CT angiographic examination: Excellent with no artifacts. The coronary artery system is right dominant. ?? The right coronary origin is normal. The left coronary origin is normal. Left Main: Medium-length vessel that bifurcates into the LAD and circmflex. Left Main: Single positively remodeled nonobstructive calcification in the proximal left main. LAD: Subtle noncalcified plaque in proximal artery causing less than 25% stenosis. 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 The LAD gives off 2 diagonal branch(es). 1st Diagonal branch (D1): Vestigial ?? 2nd Diagonal branch (D2): Normal. Circumflex artery (LCX): Normal. The circumflex gives off 1 obtuse marginal branch(es). 1st Obtuse Marginal branch (OM1): Large bifurcating single obtuse marginal branch ?? RCA: Dominant, Normal. The RCA gives off 1 acute marginal branch(es). Posterior Descending Artery: Normal. The RCA gives off 1 posterolateral branch(es). Cardiac Morphology: Right ventricle: Normal. Right atrium: Normal. ?? Atrial septum: Normal. ?? Left atrium: Normal. ?? Left atrial appendage: Normal. Pulmonary veins: Normal 4.: 2 on the left, 2 on the right. Left ventricle: Normal. Mitral valve/annulus: Normal. ?? Aortic valve: Trileaflet, normal. ?? Pericardium: normal. Aortic arch configuration: Left-sided aortic arch. ?? Aorta: Normal within the limited [id number]-[id number]. Pulmonary Arteries: Normal. INCIDENTAL FINDINGS: ??Bilateral breast implants. The lower lung scott are unremarkable. Mild degenerative changes of the mid thoracic spine. The examination was performed with the adjustment of mA according to the patient size and/or the use of Iterative Reconstruction Technique. ?? Dictated by Dr. Willie Abreu MD DICTATION LOCATION: [facility] - 03/06/2023 9:04 AM CDT [facility] ARTER[facility] DATE: 03/06/2023 8:43 AM HISTORY: 58 year-old female with dyspnea on exertion. Procedure Note Willie Abreu MD - 03/06/2023 [facility] HEART [facility] ARTERIES DATE: 03/06/2023 8:43 AM HISTORY: 58 year-old female with dyspnea on exertion. IMPRESSION: CAD-RADS 1 Coronary Arteries: Trivial calcification in the proximal LAD. Less than 25% stenosis of the proximal LAD due to noncalcified plaque. No hemodynamically significant coronary artery stenosis. Agatston Calcium Score: 40.1 Low risk for future cardiac events. CAD-RADS 0 - (0% stenosis): No plaque or stenosis. Absence of CAD. CAD-RADS 1 - (<25%) Minimal stenosis or plaque with no stenosis; CAD-RADS 2 - (25-49%) Mild stenosis; Mild non-obstructive CAD. CAD-RADS 3 - (50-69%) Moderate stenosis. CAD-RADS 4A - (70-99%) Severe stenosis. CAD-RADS 4B - (Left main >=50% or 3-vessel obstructive >= 70%). CAD-RADS 5 - (100%) Total coronary occlusion. CAD-RADS N - Non-diagnostic study; obstructive CAD cannot be excluded. Modifiers: S (stent), G (graft), V (vulnerability), D (dissection). A (Anomaly) Stenoses and are reported in accordance with the CAD-RADS Coronary Artery Disease Reporting and Data System, a consensus statement of the Society of Cardiovascular Computed Tomography, [place] College [employer] Radiology, and [place] Society of Cardiovascular Imaging (Journal of Cardiovascular Computed Tomography 2016): CAD-RADS classification should be applied on a per-patient basis for the clinically most relevant stenosis. All vessels >1.5 mm in diameter should be graded for stenosis severity. CAD-RADS does not apply for vessels <=1.5 mm in diameter. PROCEDURE: Baseline cardiac rhythm: Normal Sinus Rhythm. Heart rate: 56 BPM. Agents administered: None. 100 mL of Isovue-300 contrast IV. Triple phase contrast protocol. Sai Medisoft 256-slice gated Computed tomography (CT) of the heart. Prospective electrocardiography (ECG) triggering. Images obtained from the amos through 2-3 cm below the left hemidiaphragm. Images reconstructed at 73 % of the R-R interval. Limited full ijmts-nr-zkbd contrast CT of the chest performed for review of noncardiac pathology. Curved-plane reformatted images, Maximum Intensity Projection (MIP) images and Volume Rendered (VR) images created on a 3-D Postprocessing workstation. The examination was performed with the adjustment of mA according to the patient size and/or the use of Iterative Reconstruction Technique. CT dose length product 148.69 mGy-cm. Findings: Agatston Calcium Score Left main (LM) coronary artery: 40.1 Left anterior descending (LAD): 0 Circumflex coronary artery (LCX): 0 Right coronary artery (RCA): 0 Total calcium score: 40.1 Low risk for future cardiac events. 75% of similar patients have less coronary artery calcium. Coronary CT Angiogram: Quality of the CT angiographic examination: Excellent with no artifacts. The coronary artery system is right dominant. The right coronary origin is normal. The left coronary origin is normal. Left Main: Medium-length vessel that bifurcates into the LAD and circmflex. Left Main: Single positively remodeled nonobstructive calcification in the proximal left main. LAD: Subtle noncalcified plaque in proximal artery causing less than 25% stenosis. 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 The LAD gives off 2 diagonal branch(es). 1st Diagonal branch (D1): Vestigial 2nd Diagonal branch (D2): Normal. Circumflex artery (LCX): Normal. The circumflex gives off 1 obtuse marginal branch(es). 1st Obtuse Marginal branch (OM1): Large bifurcating single obtuse marginal branch RCA: Dominant, Normal. The RCA gives off 1 acute marginal branch(es). Posterior Descending Artery: Normal. The RCA gives off 1 posterolateral branch(es). Cardiac Morphology: Right ventricle: Normal. Right atrium: Normal. Atrial septum: Normal. Left atrium: Normal. Left atrial appendage: Normal. Pulmonary veins: Normal 4.: 2 on the left, 2 on the right. Left ventricle: Normal. Mitral valve/annulus: Normal. Aortic valve: Trileaflet, normal. Pericardium: normal. Aortic arch configuration: Left-sided aortic arch. Aorta: Normal within the limited kduuk-na-zliy. Pulmonary Arteries: Normal. INCIDENTAL FINDINGS: Bilateral breast implants. The lower lung scott are unremarkable. Mild degenerative changes of the mid thoracic spine. The examination was performed with the adjustment of mA according to the patient size and/or the use of Iterative Reconstruction Technique. Dictated by Dr. Willie Abreu MD DICTATION LOCATION: [address] ORDERABLES Performing Organization Address City/State/[facility] Co de Phone Number INTERFACE SYSTEM Refer to clinic/hospital department * BRAIN NATRIURETIC PEPTIDE, BNP OR PROBNP (12/25/2022 3:21 PM CDT) BRAIN NATRIURETIC PEPTIDE 23 <100 pg/mL [facility] Comment: BNP levels increase with age in the general population with the highest values seen in individuals greater than 75 years of age. Reference: J. Am. Syeda. Cardiol. 2002; 40:976-982. FASTING:NO FASTING: NO Test Performed at: [facility] [address] [place] [address] ??[phone] Lopez Gold MD 12/25/2022 3:21 PM CDT 12/25/2022 3:22 PM CDT Kamron Mora MD CHEMISTRY ORDERABLES Performing Organization Address [facility] Co de Phone Number [facility] [phone] [facility] [address] [place] [phone] * (ABNORMAL) LIPID PANEL (12/25/2022 3:21 PM CDT) CHOLESTEROL 200(H) <200 mg/dL [facility] HDL 93 > OR = 50 mg/dL [facility] TRIGLYCERIDE 61 <150 mg/dL [facility] LDL CALCULATED 92 mg/dL (calc) [facility] Comment: Reference range: <100 Desirable range <100 mg/dL for primary prevention; ?? <70 mg/dL for patients with CHD or diabetic patients with > or = 2 CHD risk factors. LDL-C is now calculated using the Sajan calculation, which is a validated novel method providing better accuracy than the Friedewald equation in the estimation of LDL-C. Sd SS et al. VIKKI. 2013;310(19): 4982-1702 (http://education.YieldMo/faq/TSU391) CHOL/HDL RATIO 2.2 <5.0 (calc) [facility] TOTAL NON-HDL CHOL(LDL+VLDL) 107 <130 mg/dL (calc) [facility] Comment: For patients with diabetes plus 1 major ASCVD risk factor, treating to a non-HDL-C goal of <100 mg/dL (LDL-C of <70 mg/dL) is considered a therapeutic option. FASTING:NO FASTING: NO Test Performed at: [facility] [address] [place] [address] ??[phone] Lopez Gold MD Blood 12/25/2022 3:21 PM CDT 12/25/2022 3:22 PM CDT Kamron Mora MD CHEMISTRY ORDERABLES [facility] [phone] [facility] [phone] * BASIC METABOLIC PANEL (12/25/2022 3:21 PM CDT) GLUCOSE 94 65 - 139 mg/dL [facility] Comment: ? Non-fasting reference interval BUN 21 7 - 25 mg/dL [facility] CREATININE 0.83 0.50 - 1.03 mg/dL [facility] GFR 81 > OR = 60 mL/min/1. 73m2 [facility] Comment: The eGFR is based on the CKD-EPI 2020 equation. To calculate the new eGFR from a previous Creatinine or Cystatin C result, go to https://www.kidney.org/professionals/ kdoqi/gfr%5Fcalculator BUN/CREAT RATIO NOT APPLICABLE (calc) [facility] SODIUM 137 135 - 146 mmol/L [facility] POTASSIUM 4.2 3.5 - 5.3 mmol/L [facility] CHLORIDE 103 98 - 110 mmol/L [facility] CO2 25 20 - 32 mmol/L [facility] CALCIUM 9.9 8.6 - 10.4 mg/dL [facility] Comment: FASTING:NO FASTING: NO Test Performed at: [facility] [address] [place], [place] ??[phone] Lopez Gold MD Blood 12/25/2022 3:21 PM CDT 12/25/2022 3:22 PM CDT Kamron Mora MD CHEMISTRY ORDERABLES [facility] [phone] [facility] [address] [place] [phone] * CBC WITH DIFFERENTIAL (12/25/2022 3:21 PM CDT) WBC 8.3 3.8 - 10.8 Thousand/u L [facility] RBC 4.27 3.80 - 5.10 Million/uL [facility] HEMOGLOBIN 12.8 11.7 - 15.5 g/dL [facility] HEMATOCRIT 39.3 35.0 - 45.0 % [facility] MCV 92.0 80.0 - 100.0 fL [facility] MCH 30.0 27.0 - 33.0 pg [facility] MCHC 32.6 32.0 - 36.0 g/dL [facility] RDW 12.8 11.0 - 15.0 % [facility] PLATELETS 302 140 - 400 Thousand/u L [facility] MPV 9.5 7.5 - 12.5 fL [facility] NEUTROPHIL ABSOLUTE 4,424 1,500 - 7,800 cells/uL [facility] LYMPHOCYTE ABSOLUTE 3,104 850 - 3,900 cells/uL [facility] MONOCYTE ABSOLUTE 689 200 - 950 cells/uL [facility] EOSINOPHIL ABSOLUTE 50 15 - 500 cells/uL [facility] BASOPHILS ABSOLUTE 33 0 - 200 cells/uL [facility] NEUTROPHIL 53.3 % [facility] LYMPHOCYTES 37.4 % [facility] MONOCYTE 8.3 % [facility] EOSINOPHILS 0.6 % [facility] BASOPHILS 0.4 % [facility] Comment: FASTING:NO FASTING: NO Test Performed at: [facility] [address] [place], [place] ??[phone] Lopez Gold MD Blood 12/25/2022 3:21 PM CDT 12/25/2022 3:22 PM CDT Kamron Mora MD HEMATOLOGY ORDERABLE S [facility] [phone] [facility] [address] [place] [phone] documented in this encounter Visit Diagnoses Diagnosis LGOAN (dyspnea on exertion)- Primary Other dyspnea and respiratory abnormality Abnormal cardiovascular stress test Other nonspecific abnormal cardiovascular system function study LOGAN (dyspnea on exertion) Other dyspnea and respiratory abnormality Abnormal cardiovascular stress test Other nonspecific abnormal cardiovascular system function study documented in this encounter Care Teams Supervisory Historian Relationship Specialty Start Date End Date Asad Davis MD [address] [phone] PCP - General Internal Medicine 10/24/22 documented as of this encounter
--- OUTSIDE RECORDS SUMMARY | 2024-06-22 02:35 | XMS_ITS | Encounter Summary ---
Author Organization [facility] Address [address] [place]: Epic Prelude ADT [place] [address] Care Team Providers Care Leisure Travel Agent Name Role Phone Asad Davis MD Primary Care Provider [phone] Encounter Details Date Type Department Care Team (Latest Contact Info) Description 12/17/2022 Travel Social History Tobacco Use Types Packs/Day [...] on filedocumented in this encounter Care Teams Leisure Travel Agent Relationship Specialty Start Date End Date Asad Davis MD [address] [phone] PCP - General Internal Medicine 10/24/22 documented as of this encounter
--- OUTSIDE RECORDS SUMMARY | 2024-06-22 02:35 | XMS_ITS | Encounter Summary ---
Author Organization [employer] [facility] Address [address] [place] [address] Care Team Providers Care Beach Lifeguard Name Role Phone Asad Davis MD Primary Care Provider [phone] Reason for Referral * Nuclear Medicine (Routine) - Closed Specialty Diagnoses / Procedures Referred By Contac t Referred To Contact Radiology Diagnoses LOGAN (dyspnea on exertion) Procedures STRESS TEST, EXERCISE TREADMILL UT CV STRS TST XERS&/OR RX CONT ECG W/O I&R UT CV STRS TST XERS&/OR RX CONT ECG I&R ONLY Kamron Mora MD [address] [place] [address] [facility] Nuclear Cardiology [address] [place] [address] Referral ID Status Reason Start Date Expiration Date Visits Re quested Visits Authorized [id number] Closed 11/10/2022 12/11/2022 1 1 * Echocardiography (Routine) - Closed Specialty Diagnoses / Procedures Referred By Contac t Referred To Contact Cardiology Diagnoses LOGAN (dyspnea on exertion) Procedures ECHO COMPLETE Kamron Mora MD [address] [place] [address] [facility] Non Invasive Cardiology [address] [place] [address] Referral ID Status Reason Start Date Expiration Date Visits Re quested Visits Authorized [id number] Closed 11/04/2022 07/05/2023 1 1 Reason for Visit * Reason Comments Establish Care SOB Encounter Details Date Type Department Care Team (Late st Contact Info) Description 11/04/2022 10:00 AM CDT Office Visit [facility] - [facility] [address] [place] [address] Kamron Mora MD [address] [place] [address] LOGAN (dyspnea on exertion) (Primary Dx) Social History Tobacco Use Types [...] AM CDT documented as of this encounter Last Filed Vital Signs Vital Sign Reading Time Taken Comments Blood Pressure 140/90 11/04/2022 10:05 AM CDT Pulse 72 11/04/2022 10:05 AM CDT Temperature - - Respiratory Rate - - Oxygen Saturation 94% 11/04/2022 10:05 AM CDT Inhaled Oxygen Concentration - - Weight 67.1 kg (148 lb) 11/04/2022 10:05 AM CDT Height 160 cm (5' 3 ) 11/04/2022 10:05 AM CDT Body Mass Index 26.22 11/04/2022 10:05 AM CDT documented in this encounter Progress Notes * Kamron Mora MD - 11/04/2022 10:32 AM CDT HISTORY OF PRESENT ILLNESS Zenobia Henley, a 57 y.o. female presents with a Chief Complaint of Establish Care (SOB ) Subjective HPI Reports LOGAN. Sxs have developed gradually over several months. 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 Alos reports occ sense of dizziness when doing more stressful exertion at work. No CP. No PND, orthopnea or LE edema. No palpitations, lightheadedness, near syncope or syncope. Measures BP at home 120s-130s. PMH: has no h/o diabetes, hypertension, hyperlipidemia, takes no prescription meds SH: former smoker, quit 3 yrs ago, has 4 etoh on Thursday evening. FH: + FH of CAD, Mom had CABG REVIEW OF SYSTEMS Review of Systems Constitutional: Negative for fever and unexpected weight change. HENT: Negative for congestion, nosebleeds, sore throat and trouble swallowing. Eyes: Negative for visual disturbance. Respiratory: Negative for cough. Gastrointestinal: Negative for abdominal pain, diarrhea, nausea and vomiting. Genitourinary: Negative for difficulty urinating and hematuria. Musculoskeletal: Negative for back pain and myalgias. Skin: Negative for rash. Neurological: Negative for seizures and headaches. Hematological: Does not bruise/bleed easily. Psychiatric/Behavioral: Negative for confusion. All other systems reviewed and are negative. No current outpatient medications on file. No current facility-administered medications for this visit. Objective PHYSICAL EXAM BP (!) 140/90 Pulse 72 Ht 5' 3 (1.6 m) Wt 67.1 kg (148 lb) SpO2 94% BMI 26.22 kg/m?? Physical Exam Constitutional: Appearance: Normal appearance. She is well-developed. HENT: Head: Normocephalic. Nose: Nose normal. Mouth/Throat: Pharynx: Oropharynx is clear. Eyes: General: No scleral icterus. Conjunctiva/sclera: Conjunctivae normal. Pupils: Pupils are equal, round, and reactive to light. Neck: Thyroid: No thyromegaly. Vascular: No carotid bruit or JVD. Trachea: No tracheal deviation. Cardiovascular: Rate and Rhythm: Normal rate and regular rhythm. Chest Wall: PMI is not displaced. Pulses: Carotid pulses are 2+ on the right side and 2+ on the left side. Radial pulses are 2+ on the right side and 2+ on the left side. Posterior tibial pulses are 2+ on the right side and 2+ on the left side. Heart sounds: Normal heart sounds. No murmur heard. No S3 sounds. Pulmonary: Effort: Pulmonary effort is normal. Breath sounds: Normal breath sounds. No wheezing or rales. Abdominal: General: There is no distension. Palpations: Abdomen is soft. There is no mass. Tenderness: There is no abdominal tenderness. There is no rebound. Musculoskeletal: General: No tenderness. Skin: Findings: No erythema or rash. Neurological: Mental Status: She is alert and oriented to person, place, and time. Psychiatric: Mood and Affect: Mood normal. Behavior: Behavior normal. Thought Content: Thought content normal. Judgment: Judgment normal. Procedures ECG - NSR. HR 53. NS T Abn Assessment ASSESSMENT and PLAN: ICD-10-CM ICD-9-CM 1. LOGAN (dyspnea on exertion) R06.09 786.09 BRAIN NATRIURETIC PEPTIDE, BNP OR PROBNP ECHO COMPLETE STRESS TEST, EXERCISE TREADMILL Does not appear volume overloaded. CV exam unremarkable ECG unremarkable Echo ETT proBNP Have requested most recent BMP, CBC, lipid panel form PCP From recs to follow * Adonis Scott - 11/04/2022 9:56 AM CDT Zenobia denies chest pain, shortness of breath, dizziness, or swelling in her legs. documented in this encounter Procedure Notes * Kamron Mora MD - 11/04/2022 10:16 AM CDTAssociated Order(s): EKG 12-LEAD Procedure(s): UT ECG ROUTINE ECG W/LEAST 12 LDS W/I&R Pre-Procedure Diagnose(s): Shortness of breath NSR. HR 53. NS T Abn. documented in this encounter Miscellaneous Notes * Patient Instructions - Kamron Mora MD - 11/04/2022 10:27 AM CDT Exercise treadmill test Echocardiogram Blood test (proBNP) documented in this encounter Plan of Treatment Not on file documented as of this encounter Procedures Procedure Name Priority Date/Time Associated Diagnosis Comments UT ECG ROUTINE ECG W/LEAST 12 LDS W/I&R Routine 11/04/2022 10:16 AM CDT documented in this encounter Results * ECHO COMPLETE (12/18/2022 3:21 PM CDT) EJECTION FRACTION EF: INTERFACE SYSTEM 12/18/2022 2:34 PM CDT Narrative INTERFACE SYSTEM - 12/18/2022 3:30 PM CDT [address] [address] [email or web address] Transthoracic Echocardiogram Patient: ? Zenobia Henley MRN: ? [id number] Study ID: ?[id number] Gender: ?F : ? 1965 Age: ? 57 Race: ?CAU Height ? 160cm Study Date: ?12/18/2022 Weight: ?67.1kg Access. #: ? [id number] Account #: ? [id number] BP: *Referring Physician:* Kamron Mora M.D. ([facility]) Kamron Mora M.D. ([facility]) *Ordering Physician:* ??Kamron Mora M.D. ([facility]) Special Ed Assistant: global supply chain vice president: Nurse: STUDY CONCLUSIONS: SUMMARY: - Left ventricle: [...] 02:34 PM. ?Prepared and Electronically Authenticated Reginald rBown [id number]:30:07 Procedure Note Reginald Brown MD - 12/18/[address] [address] [email or web address]/[employer] Transthoracic Echocardiogram Patient: Zenobia Henley Study ID: [id number] Gender: F : 1965 Age: 57 Race: JACK Height 160cm Study Date: 12/18/2022 Weight: 67.1kg Access. #: [id number] BP: *Referring Physician:* Kamron Mora M.D. ([facility]) Kamron Mora M.D.([facility]) *Ordering Physician:* Kamron Mora M.D. ([facility]) Special Ed Assistant: global supply chain vice president: Nurse: STUDY CONCLUSIONS: SUMMARY: - Left ventricle: [...] 02:34 PM. Preparedand Electronically Authenticated Reginald Brown [id number]:30:07 Kamron Mora MD ORDERABLES INTERFACE SYSTEM Refer to clinic/hospital department * STRESS TEST, EXERCISE TREADMILL (12/18/2022 2:04 PM CDT) EJECTION FRACTION EF: INTERFACE SYSTEM 12/18/2022 2:00 PM CDT Narrative INTERFACE SYSTEM - 12/18/2022 3:14 PM CDT [address] [address] [email or web address] Stress Electrography Arias Protocol Patient: ? Zenobia Henley: ? [id number] Study ID: Gender: ?F : ? 1965 Age: ? 57 Race: ?CAU Height Study Date: ?12/18/2022 Weight: Access. #: ? [id number] Account #: ? [id number] BP: *Referring Physician:* Kamron Mora M.D. ([facility]) *Ordering Physician:* ??Kamron Mora M.D. ([facility]) Special Ed Assistant: global supply chain vice president: Nurse: Indications: SOB / LOGAN. STUDY CONCLUSIONS: [...] peak heart rate and blood pressure was 50309kt Hg/min. The patient experienced 3/10 chest pain [...] laboratory. ?Prepared and Electronically Authenticated Reginald Brown [id number]:42 Procedure Note Reginald Brown MD - 12/18/2022 [place] [address] [email or web address] Stress Electrography Arias Protocol Patient: Zenobia Henley Study ID: Gender: F : 1965 Age: 57 Race: CAU Height Study Date: 12/18/2022 Weight: Access. #: [id number] BP: *Referring Physician:* Kamron Mora M.D. ([facility]) *Ordering Physician:* Kamron Mora M.D. ([facility]) Special Ed Assistant: global supply chain vice president: Nurse: Indications: SOB / LOGAN. STUDY CONCLUSIONS: [...] the peak heart rate and blood pressure pll29385hm Hg/min. The patient experienced 3/10 chest pain [...] laboratory. Prepared and Electronically Authenticated Reginald Brown [id number]:14:42 Kamron Mora MD NM ORDERABLES INTERFACE SYSTEM Refer to clinic/hospital department * UT ECG ROUTINE ECG W/LEAST 12 LDS W/I&R (11/04/2022 10:16 AM CDT) Narrative [facility] - 11/04/2022 10:16 AM CDT Kamron Mora MD ? 11/04/2022 10:38 AM NSR. HR 53. NS T Abn. Procedure Note Kamron Mora MD - 11/04/2022 10:16 AM CDT NSR. HR 53. NS T Abn. Kamron Mora MD ECG ORDERABLES Performing Organization Address City/State/[facility] Co de Phone Number [facility] CLIA# [id number] [address] [place] [address], [place] [address] documented in this encounter Visit Diagnoses Diagnosis LOGAN (dyspnea on exertion)- Primary Other dyspnea and respiratory abnormality LOGAN (dyspnea on exertion) Other dyspnea and respiratory abnormality LOGAN (dyspnea on exertion) Other dyspnea and respiratory abnormality documented in this encounter Care Teams Beach Lifeguard Relationship Specialty Start Date End Date Asad Davis MD [address] [id number] PCP - General Internal Medicine 10/24/22 documented as of this encounter
--- OUTSIDE RECORDS SUMMARY | 2024-06-22 02:35 | XMS_ITS | CONTINUITY OF CARE DOCUMENT ---
Author Name wilbert atkins Address Unknown Organization [facility] Address [address] [place] [address] [address] [place] [address] Phone [phone] Care Team Providers Care Parts Facilitator Name Role Phone Ekta Tate MD Unavailable Asad Davis MD Unavailable Asad Davis MD Unavailable INSURANCE PROVIDERS Payer name Policy type / Coverage type [place] red democrat ID [facility] [id number]
--- OUTSIDE RECORDS SUMMARY | 2024-06-22 02:35 | XMS_ITS | Encounter Summary ---
Author Organization [facility] Address [address] [place] [address] Care Team Providers Care Merchandise Executive Name Role Phone Asad Davis MD Primary Care Provider [phone] Reason for Referral * CT Scan (Routine) - Closed Specialty Diagnoses / Procedures Referred By Devon t Referred To Contact Radiology Diagnoses LOGAN (dyspnea on exertion) Abnormal cardiovascular stress test Procedures CTA HEART AND ARTERIES Kamron Mora MD [address] [place] [address] [facility] [address] Scan [address] [place] [address] Referral ID Status Reason Start Date Expiration Date Visits Re quested Visits Authorized [id number] Closed 12/23/2022 07/05/2023 1 1 Reason for Visit * Auth/Cert (Routine) Specialty Diagnoses / Procedures Referred By Contac t Referred To Contact General Surgery Diagnoses LOGAN (dyspnea on exertion) Abnormal cardiovascular stress test Procedures CTA HEART AND ARTERIES Kamron Mora MD [address] [place] [address] [facility] [address] [place] [address] Referral ID Status Reason Start Date Expiration Date Visits Re quested Visits Authorized [id number] 1 1 Encounter Details Date Type Department Care Team (Latest Contact Info) Description 03/06/2023 7:51 AM CDT - 03/06/2023 8:51 AM CDT Hospital Encounter [facility] Interventional Unit [place] [address] [place] [id number] Kamron Mora MD [address] [facility] [address] [place] [address] LOGAN (dyspnea on exertion) Discharge Disposition: Home or Self Care Social [...] Sign Reading Time Taken Comments Blood Pressure 142/72 03/06/2023 8:35 AM CDT Pulse 54 03/06/2023 8:35 AM CDT Temperature - - Respiratory Rate 16 03/06/2023 8:35 AM CDT Oxygen Saturation 100% 03/06/2023 8:35 AM CDT Inhaled Oxygen Concentration - - Weight 70 kg (154 lb 6.4 oz) 03/06/2023 8:03 AM CDT Height 160 cm (5' 3 ) 03/06/2023 8:03 AM CDT Body Mass Index 27.35 03/06/2023 8:03 AM CDT documented in this encounter Medications at Time of Discharge Medication Sig Dispensed Refills Start Date End Date metoprolol tartrate (LOPRESSOR) 50 mg tablet Take 1 tablet (50mg) the night before the procedure and 1 tablet (50mg) the morning of the procedure. 2 Tablet 12/23/2022 04/28/2023 documented as of this encounter Miscellaneous Notes * Treatment Plan - Asya Mejia, RT - 03/06/2023 8:45 AM CDT OUTPATIENTS DISCHARGE INSTRUCTIONS - DISCHARGE INSTRUCTION CARD GIVEN TO PATIENT: Thank you for choosing [facility], it has been a privilege to serve you! Our team is called to provide compassionate care and exceptional service. Your images will be read by a physician, and your resultswill be available in your [facility] account and to your ordering provider, within 48 hours. Thank youfor trusting [facility] with your care. Your [facility] Imaging Services Care Team * Treatment Plan - Asya Mejia RT - 03/06/2023 8:45 AM CDT Images from the original note were not included. ST IMS Medication and Flush Protocol- CT and MRI Procedures [facility] Approved by: [facility]-Medical Executive Committee Approval Date: 01/22/2023 ORDERS ARE ENTERED ???PER PROTOCOL?? Enter the protocol in the patient's electronic health record using ActivePathrase: .imagingctmriprotocol Communication Orders: For ordered imaging procedures requiring intravenous access: Initiate a peripheral IV, if not already in place, and discontinue IV prior to discharge (if outpatient). Enter order if needed: Insert Peripheral IV Bariatric Oral Contrast: Post-surgical bariatric patients will have markedly reduced ability to drink normal quantities of liquid. Four ounces will be the maximum amount or less if the patient cannot comfortably tolerate. Cancel oral contrast if patient is nauseated or vomiting. Water based contrast only. Medication Orders: Local Anesthetic for use to initiate IV ADULT Lidocaine 4% (L.M.X.4) applied topically ONE TIME prior to IV catheter insertion PRN (L.M.X.4 % should be applied 15 minutes prior to procedure) PEDIATRIC Lidocaine 4% (L.M.X.4) applied topically ONE TIME prior to IV catheter insertion PRN (apply 30 minutes prior to procedure) Sucrose 24% (Squirts) given PO prior to IV catheter insertion (administer 1 - 2 minutes prior to procedure) OR Sucrose 24% (Tootsweet; Sweet-Ease) oral solution 0.2 mL oral (apply to tongue on pacifier or clean, gloved finger), ONE TIME 2 minutes prior to painful procedure. May repeat dose x1 PRN to complete procedure. Sodium chloride 0.9% (normal saline) flush 10 mL PRN for saline lock or medication administration. For respiratory distress, initiate oxygen and/or increase O2 to maintain saturation greater than 90% For all invasive procedures: obtain Lidocaine 1% for intra-procedure administration. If Lidocaine 1% unavailable, may substitute Lidocaine 2%. PROCEDURE SPECIFIC CT MEDICATIONS Any exceptions to these contrast protocols must be approved by a Radiologist and documented in the EHR Progress Notes. When multiple medications are listed with the comment ???OR?? them, select the first option until challenges from product availability make this option unavailable. Cystogram (CT Pelvis): Iopamidol (Isovue 300) 61%, 50 mL, diluted with 250mL of sterile NS. Inject Isovue into 250 mL bag of NS. Clamp philip catheter prior to instilling solution via catheter. Instill up to 300 mL of Isovue and NS solution into bladder via catheter, one time. CT ORAL CONTRAST PROTOCOLS FOR ADULTS Use Iohexol (Omnipaque) 240 mg/mL for CT scan unless patient has a documented allergy to contrast dye. If allergy present, use Barium Sulfate (EZ Paque) for procedure. Iopamidol (Isovue 300) 300mg/ml: 30ml added to 960mL of clear liquid of patient's choice. Preferredroute is oral. May use nasoenteric tube if needed. Utilize the following administration instructions when there is a need to conserve contrast 15 mL of Iopamidol (Isovue 300) split into two cups (7.5 mL in each cup) Dilute as usual with 960 mL of clear liquid of patient's choice (480 mL in each cup) Have patient drink one cup an hour before the test, wait 30 minutes then start to drink the next cup, leaving a little over an inch in the bottom of the second cup. As the technologist is getting thepatient from the waiting room after an hour, have the patient finish the rest of the second cup so it can coat and fill the stomach OR Iohexol (Omnipaque) 240 mg/mL: 50ml added to 960mL of clear liquid of patient's choice. Preferred route is oral. May use nasoenteric tube if needed. Administer 900mL of the diluted Omnipaque 240, orally, one time only. Barium Sulfate (EZ Paque /Vanilla Silq) 96% oral suspension: Preferred route is oral. May use nasoenteric tube if needed. Administer 900mL of barium sulfate, orally, one time only. Bariatric Patient: Post-Surgery to 1 year- 50 mL total volume. NO carbonated liquids lopamidol (Isovue 300) 300 mg/mL: mixed with water. Draw 50 mL of mixed solution for patient. Preferred route is orally. May use nasoenteric tube if needed. OR lohexol (Omnipaque) 240 mg/mL: mixed with water. Draw 50mL of mixed solution for patient. Preferredroute is orally. May use nasoenteric tube if needed. (SUBJECT TO AVAILABILITY) After 1 year- no more than 236 mL (8oz) total volume. NO carbonated liquids. lopamidol (Isovue 300) 300 mg/mL: mixed with water OR lohexol (Omnipaque) 240 mg/mL: mixed with water (SUBJECT TO AVAILABILITY) CT ORAL CONTRAST PROTOCOLS FOR PEDIATRICS Pediatrics = up to age 18 Pediatric Radiologist will approve of one of the following products selected for procedure. Barium Sulfate (EZ Paque) 96% oral suspension: preferred route is oral. May use nasoenteric tube ifneeded. Letart to 3 months Administer up to 90mL of Barium sulfate, orally, one time only 4 months to 1 year old Administer up to 240mL of Barium sulfate, Orally, One Time Only 1 year old to 5 years old Administer up to 360mL of Barium sulfate, Orally, One Time Only 5 years old to 10 years old Administer up to 480mL of Barium sulfate, Orally, One Time Only Over 10 years old Administer up to 600mL of Barium sulfate, Orally, One Time Only Iopamidol (Isovue 300) 300 mg/mL oral solution Dilute 25mL of Iohexol with 480mL of clear liquid of patient's choice. Administer the diluted solution per age as follows: Preferred route is orally. May use nasoenteric tube if needed. Send any remaining diluted Iohexol solution with the patient's nurse to CT Iopamidol (Isovue) 300 mg/ml oral solution age appropriate guidelines Letart Administer 45mL of diluted Iopamidol oral solution, orally every 30 minutes x 2 doses. 1 month to 1 year old Administer 120mL of diluted Iopamidol oral solution, orally every 30 min x 2 doses. 1 year old to 5 years old Administer 180mL of diluted Iopamidol oral solution, orally every 30 min x 2 doses. 5 years old to 10 years old Administer 240mL of diluted Iopamidol oral solution, orally every 30 min x 2 doses. Over 10 years old Administer 245mL of diluted Iopamidol oral solution, orally every 30 min x 2 doses. OR Iohexol (Omnipaque) 240 mg/mL oral solution Dilute 25mL of Iohexol with 480mL of clear liquid of patient's choice. Administer the diluted solution per age as follows: Preferred route is orally. May use nasoenteric tube if needed. Send any remaining diluted Iohexol solution with the patient's nurse to CT Iohexol (Omnipaque) 240mg/ml oral solution age appropriate guidelines Administer 45mL of diluted Iohexol oral solution, orally every 30 minutes x 2 doses. 1 month to 1 year old Administer 120mL of diluted Iohexol oral solution, orally every 30 min x 2 doses. 1 year old to 5 years old Administer 180mL of Iohexol orally every 30 min x 2 doses. 5 years old to 10 years old Administer 240mL of Iohexol orally every 30 min x 2 doses. Over 10 years old Administer 250mL of Iohexol orally every 30 min x [address] RECTAL CONTRAST PROTOCOLS ADULTS: Iopamidol (Isovue) 300 mg/mL: Dilute 30mL of Isovue with 900mL of warm water in an enema bag. Administer the diluted solution rectally via gravity per patient's tolerance, up to 950mLs, one time only. OR Iohexol (Omnipaque) 240 mg/mL: Dilute 50mL of Omnipaque with 900mL of warm water in an enema bag. Administer the diluted solution rectally via gravity per patient's tolerance, up to 950mLs, one time only. CT IV CONTRAST PROTOCOLS for ADULT ADULTS: (If patient is less than 55kg and confirm dose with radiologist) Iopadmidol (Isovue-300): Administer 2.2mL/kg of Iopamidol 61%, intravenously, one time only. See table below for maximum dose, unless otherwise authorized by radiologist. If exam has been completed before the entire dose has been administered, stop the injection. Multiple doses of iodine contrast within a 24-hour period are a risk factor for SARABJIT and should be avoided if possible. Emergent or other unusual circumstances where multiple doses of contrast are required in a short interval time should prompt consideration by the referring professional and radiologist to discuss the risks and benefits of contrast media administration. If exam not included in table below, contact radiologist for orders. Procedure Maximum Dose CT Head with Contrast Up to [address] Chest with Contrast Up to [address] Maxillofacial with Contrast Up to [address] Soft Tissue Neck with Contrast CT Chest Abdomen Pelvis with Contrast CT Chest Abdomen with Contrast CT Abdomen Pelvis with Contrast CT Pelvis with Contrast CT Angiogram Examinations (all) CT Soft Tissue Neck and Chest Abdomen Pelvis with Contrast Up to [address] Soft Tissue Neck and Chest with Contrast CT Urogram with Contrast CT IV CONTRAST PROTOCOLS for PEDIATRICS PEDIATRICS: Use weight-based dosing if patient is less than 55kg and confirm dose with radiologist. Letart to 15 years old Administer 2.2mL/kg (to MAX of 80 mL) of Iopamidol (Isovue-300) 61%, intravenously, one time only 15 years old and older Administer 2.2mL/kg (to MAX of 150mL) of Iopamidol (Isovue-300) 61%, intravenously, one time only PROCEDURE SPECIFIC MRI MEDICATIONS: MRI ENTEROGRAPHY: GLUGACON ADMINISTRATION ADULTS: (patient 18 years or older) Patient will receive 2 doses of Glucagon one dose 0.5mg IM administered by RN prior to the MRI exambeginning 2nd dose 0.5mg IV prior to the IV contrast being administered. (If the patient is diabetic call the radiologist to verify administration of Glucagon) PEDIATRICS: If the patient is diabetic call the radiologist to verify administration of Glucagon Pediatric patient weighing 24.9 kg or less should have one dose of Glucagon 0.5mg IM administered by RN prior to MRI exam beginning. Pediatric patient weighing 25 kg or greater should have one dose of Glucagon 1 mg IM administered by RN prior to the MRI exam beginning. MRI UROGRAM: LASIX ADMINISTRATION ADULTS: Call radiologist with any questions regarding administration of Lasix Lasix 0.1mg per kg with a minimum dose of Lasix 5mg IV being given up to a max dose of Lasix 10mg IV being given. The Lasix should be administered by RN prior to the IV contrast being administered. (Hold Lasix if: obstruction, anuria and hypersensitivity to furosemide, and electrolyte imbalance or hypotension should be corrected by RN before administering) MRI IV CONTRAST PROTOCOLS ADULTS: Multihance and Prohance can be used for most MRI scans Prohance should be used primarily. Multihance is useful in specific circumstances as directed by the radiologist or per the appropriate sections established protocols. Group I gadolinium contrast agents shall not be administered. Generally, multiple doses of gadolinium contrast should not be administered within a 24-hour period. In emergent or other unusual circumstances where this is necessary, only Group II agents should beadministered. For Liver Studies: Contact radiologist to determine use of one of the following: Gadobenate Dimeglumine (Multihance) (0.1mmol/0.2mL), Administer 0.1mmol/kg = 0.2mL/kg up to MAX of 20 mL, intravenously, one time only Gadoteridol (Prohance) (0.1mmol/0.2mL), Administer 0.1mmol/kg = 0.2mL/kg up to MAX of 20mL, intravenously, one time only Gadoxetate (Eovist) (2.5 mmol/10mL), Administer 0.025mmol/kg = 0.1mL/kg up to MAX of 10mL, intravenously, one time only PEDIATRICS: Radiologist to determine need for contrast Term neonates up to 2 years: Gadobuterol (Gadavist) (1mmol/mL injection), Administer 0.1mmol/kg = 0.1mL/kg up to MAX of 14mmol=14mL, intravenously, one time only OR Gadobenate Dimeglumine (Multihance) (0.1mmol/mL), Administer 0.1mmol/kg = 0.1mL/kg up to MAX of 14mmol = 14mL, intravenously, one time only 2 years and older Gadobenate Dimeglumine (Multihance) (0.1mmol/0.2mL), Administer 0.1mmol/kg = 0.2mL/kg up to MAX of 20mL, intravenously, one time only OR Gadoteridol (Prohance) (0.1mmol/0.2mL), Administer 0.1mmol/kg = 0.2mL/kg up to MAX of 20mL, intravenously, one time only TABLE 1. ACR Manual Classification of Gadolinium-Based Agents Relative to Nephrogenic Systemic Fibrosis Group I: Agents associated with the greatest number of NSF cases: Gadodiamide (Omniscan?? - Soundsupply) Gadopentetate dimeglumine (Magnevist?? - Chimerix) Gadoversetamide (OptiMARK?? - Guerbet) Group II: Agents associated with few, if any, unconfounded cases of NSF: Gadobenate dimeglumine (MultiHance?? - [employer]) Gadobutrol (Gadavist?? - Chimerix; Gadovist in many countries) Gadoteric acid (Dotarem?? - Guerbet, Clariscan - Soundsupply) Gadoteridol (ProHance?? - [employer]) Group III: Agents for which data remains limited regarding NSF risk, but for which few, if any unconfounded cases of NSF have been reported: Gadoxetate disodium (Eovist - Chimerix; Primovist in many countries) documented in this encounter Plan of Treatment Not on file documented as of this encounter Procedures Procedure Name Priority Date/Time Associated Diagnosis Comments CTA HEART AND ARTERIES Routine 03/06/2023 8:43 AM CDT LOGAN (dyspnea on exertion) Abnormal cardiovascular stress test POC CREATININE Routine 03/06/2023 8:29 AM CDT documented in this encounter Results * CTA [...] of the Society of Cardiovascular Computed Tomography, Citizen Of [place] [employer], and [place] Citizen Of [place] Society of Cardiovascular Imaging (Journal of Cardiovascular [...] Isovue-300 contrast IV. Triple phase contrast protocol. Krux 256-slice gated Computed tomography (CT) of the heart. Prospective electrocardiography (ECG) triggering. ?? Images obtained from the amos through 2-3 cm below the left hemidiaphragm. Images reconstructed at 73 % of the R-R interval. Limited full kjnqd-nr-yiji contrast CT of the chest performed for [...] arch. ?? Aorta: Normal within the limited jbwgi-er-[id number]. Pulmonary Arteries: Normal. INCIDENTAL FINDINGS: ??Bilateral breast implants. The lower lung scott are unremarkable. Mild degenerative changes of the mid thoracic spine. The examination was performed with the adjustment of mA according to the patient size and/or the use of Iterative Reconstruction Technique. ?? Dictated by Dr. Willie Abreu MD DICTATION LOCATION: 1 [facility] SYSTEM - 03/06/2023 9:04 AM CDT CTA [...] of the Society of Cardiovascular Computed Tomography, Citizen Of [employer] [place] [employer], and [place] Citizen Of The [place] Society of Cardiovascular Imaging (Journal of Cardiovascular [...] Isovue-300 contrast IV. Triple phase contrast protocol. Krux 256-slice gated Computed tomography (CT) of the heart. Prospective electrocardiography (ECG) triggering. Images obtained from the amos through 2-3 cm below the left hemidiaphragm. Images reconstructed at 73 % of the R-R interval. Limited full djqwg-ny-rjld contrast CT of the chest performed for [...] aortic arch. Aorta: Normal within the limited mjjlv-xf-umar. Pulmonary Arteries: Normal. INCIDENTAL FINDINGS: Bilateral breast implants. The lower lung scott are unremarkable. Mild degenerative changes of the mid thoracic spine. The examination was performed with the adjustment of mA according to the patient size and/or the use of Iterative Reconstruction Technique. Dictated by Dr. Willie Abreu MD DICTATION LOCATION: [address] ORDERABLES INTERFACE SYSTEM Refer to clinic/hospital department * POC CREATININE (03/06/2023 8:29 AM CDT) CREATININE POC 0.90 0.50 - 1.00 mg/dL 03/06/2023 8:29 AM CDT [facility] GFR POC >60 >=60 mL/min/1.7 3 sq meter 03/06/2023 8:29 AM CDT [facility] Comment:eGFR calculated with 2020 CKD-EPI equation. Vegetarian diet, extremely high or low muscle mass, and may affect results. Cystatin C with Glomerular Filtration Rate is a suitable alternative for these patients. Blood, whole 03/06/2023 8:29 AM CDT 03/06/2023 8:33 AM CDT Kamron Mora MD POINT OF CARE TESTIN G [facility]# [id number] [address] [facility] [address] documented in this encounter Visit Diagnoses Diagnosis LOGAN (dyspnea on exertion) Other dyspnea and respiratory abnormality Abnormal cardiovascular stress test Other nonspecific abnormal cardiovascular system function study documented in this encounter Administered Medications Inactive Administered Medications - up to 3 most recent administrations Medication Order MAR Action Action Date Dose Rate Site iopamidoL (ISOVUE-300) 61% injection (drawn from multi-use bulk pack) 80 mL 80 mL, IV, INTRA-PROCEDURE ONCE, 1 dose, Starting on Thu03/06/23 at 0844, Until Thu03/06/23 at 0844, Routine Contrast Given 03/06/2023 8:44 AM CDT 80 mL sodium chloride 0.9% bolus solution 50 mL 50 mL, IV, ONE TIME ONLY, 1 dose, On Thu03/06/23 at 0845, at 100 mL/hr, Administer over 30 Minutes, Routine New Bag 03/06/2023 8:45 AM CDT 50 mL 100 mL/hr sodium chloride flush injection 10 mL 10 mL, IV, SEE ADMIN INSTRUCTIONS, Starting on Thu03/06/23 at 0844, Until Thu03/06/23 at 1052, Routine Given 03/06/2023 8:45 AM CDT 10 mL documented in this encounter Active and Recently Administered Medications Times are shown in CDT. Scheduled Medication Order 03/04/2023 2023 03/06/2023 iopamidoL (ISOVUE-300) 61% injection (drawn from multi-use bulk pack) 80 mL (COMPLETED) 80 mL, IV, INTRA-PROCEDURE ONCE, 1 dose, Starting on Thu03/06/23 at 0844, Until Thu03/06/23 at 0844, Routine 0844 (Contrast Given - Provider: Asya Mejia RT) sodium chloride 0.9% bolus solution 50 mL 50 mL, IV, ONE TIME ONLY, 1 dose, On Thu03/06/23 at 0845, at 100 mL/hr, Administer over 30 Minutes, Routine 0845 (New Bag - Prov ider: Asya Mejia RT)0915 (Due: Stopped - Provider: Asya Mejia RT) sodium chloride flush injection 10 mL 10 mL, IV, SEE ADMIN INSTRUCTIONS, Starting on Thu03/06/23 at 0844, Until Thu03/06/23 at 1052, Routine 0845 (Given - Provid er: RT Zana) documented in this encounter Care Teams Merchandise Executive Relationship Specialty Start Date End Date Asad Davis MD [address] [address] PCP - General Internal Medicine 10/24/22 documented as of this encounter
--- OUTSIDE RECORDS SUMMARY | 2024-06-22 02:35 | XMS_ITS | Clinical Summary ---
Author Organization [facility] Address [address], [address] [address] Phone Care Team Providers Care Nursing Staffing Coordinator Name Role Phone Asad Davis MD Primary Care Provider [phone] Allergies Active Allergy Reactions Criticality Noted Date Comments Neomycin-Bacitracin Zn-Polymyx Rash 09/02 Medications polyethylene glycol (MIRALAX) Powder Use entire 255g bottle with 64oz of clear liquid as directed for colonoscopy prep. 255 g 0 7 Active metroNIDAZOLE (FLAGYL) 500 MG Tablet Take 1 Tab by mouth 3 times daily. 30 Tab 8 Active Family History Medical History Relation Name Comments Heart Disease Father Prostate Cancer Father Congestive Heart Failure Mother Chronic Lung Disease Sister Relation Name Status Comments Father Mother Sister Social History Tobacco Use Types Packs/Day Years Used Date Smoking Tobacco: Every Day Cigarettes 0.5 35 Smokeless Tobacco: Never Alcohol Use Standard Drinks/Week Comments Yes 0 (1 standard drink = 0.6 oz pur e alcohol) socially on weekends Comments No Sex and Gender Information Value Date Recorded Sex Assigned at Not on file Legal Sex Female 8:00 PM CDT Gender Identity Not on file Sexual Orientation Not on file Occupation Industry Job Start Date Job End Date [employer] Not on file Not on file Not on file Last Filed Vital Signs Vital Sign Reading Time Taken Comments Blood Pressure 120/80 09/02/2016 2:51 PM [employer] Pulse 65 09/02/2016 2:51 PM [employer] Temperature 36.6 ??C (97.9 ??F) 09/02/2016 2:51 PM CS T Respiratory Rate 14 09/02/2016 2:51 PM [employer]IM[employer] Oxygen Saturation 96% 09/02/2016 2:51 PM [employer] Inhaled Oxygen Concentration - - Weight 65.3 kg (144 lb) 09/02/2016 2:51 PM [employer]IMATOR [employer] Height 162.6 cm (5' 4 ) 09/02/2016 2:51 PM [employer]IMATOR [employer] Body Mass Index 24.72 09/02/2016 2:51 PM [employer]IMATOR [employer] Plan of Treatment Health Maintenance Due Date Last Done Comments Hepatitis C Virus (HCV) Screening 1965 TdaP Immunization 1965 Cologuard 2013 Immunochemical Fecal Occult Blood 2013 Mammogram 2013 Zoster Immunization (1 of 2) 2013 SARS-COV-2 Immunization (2022- season) 2023 Influenza Immunization (Seas on Ended) 2024 Colonoscopy 03/23/2027 03/23/2017 Colorectal Cancer Screening 03/23/2027 03/23/2017 Hepatitis B Immunization Aged Out No longer eligible based on patient's age to complete this topic Meningococcal Immunization (ACWY) Aged Out No longer eligible based on patient's age to complete this topic Pneumococcal Immunization Combined Aged Out No longer eligible based on patient's age to complete this topic Rotavirus Immunization Aged Out No lo nger eligible based on patient's age to complete this topic Procedures Procedure Name Priority Date/Time Associated Diagnosis Comments COLONOSCOPY Routine 03/23/2017 from Last 3 Months or Most Recently Relevant to Health Maintenance Results * COLONOSCOPY (03/23/2017) Willie Stout DO PROCEDURE/MINOR SURGICAL ORDERA BLES Final Result from Last 3 Months or Most Recently Relevant to Health Maintenance Insurance [facility] Care Teams Nursing Staffing Coordinator Relationship Specialty Start Date End Date Asad Davis MD PCP - General Internal Medicine 04/28/19
--- OUTSIDE RECORDS SUMMARY | 2024-06-22 02:36 | XMS_ITS | Continuity of Care Document ---
Author Organization [facility] Address [address] [place] [id number] Phone Care Team Providers Care Wire Annealer Name Role Phone Costa Wells MD Unavailable Unavailable Procedures Procedure Date MRI OF NECK, SPINE W/O CONTRAST 023 MRI, SPINAL CANAL W/O CONTRAST MRI, LUMBAR SPINE W/O CONTRAST INJECT, ANESTHETIC AND/OR ST EROID, TRANSFORAMINAL EPIDURAL; C/T, SINGLE LEVEL SURGICAL TRAY LOW OSMOLAR CONTRAST (200 TO 299 MG IODI NE) INJ, DEXAMETHASONE SODUIM PHOSPHATE (DEC ADRON) 1MG Advance Directives Directive Yes / No Effective Date File Name No Information Encounters Encounter Description Practice Location Reason(s) For Visit Diagnoses Date Provider Providers Copied on Encounter [employer] [facility], [address] [facility], [place], [place], [id number], tel:[phone] [facility] No Information Priscilla Skelton. [address], [place], [id number], [place]. tel:[phone] Referring Provider: Sanjiv Trinidad DO, [address], [place], [address]. tel:[phone] [facility], [address] [facility], [place], [place], [id number], tel:[phone] [facility] No Information Radha De León. [address], [place], [id number], [place]. tel:[phone] Referring Provider: Sanjiv Trinidad DO, [address], [place], [address]. tel:[phone] [facility], [address], [place], [place], [id number], tel:[phone] [facility] No Information Radha De León. [address] , [place], [place], [id number], [place]. tel:[phone] Referring Provider: Sanjiv Trinidad DO, [address], [place], [address]. tel:[phone] Family History Family Member Type Diagnosis Age At Onset No Information Payers Payer name Insurance type Covered alliance party ID Tara sykes(s) [facility] ACC[facility] [id number] [facility] Social History Type Description Quantity Date Captured [...]
== END 2024-06-18 09:47 | disposition home or self-care (01) ==
LOC: ANHIMG 09:47
PROVIDERS: PCP Internal Medicine; Visit Provider Internal Medicine
DX: Z78.0 Asymptomatic menopausal state (principal); M85.88 Other specified disorders of bone density and structure, other site; M85.852 Other specified disorders of bone density and structure, left thigh; M85.851 Other specified disorders of bone density and structure, right thigh
CPT/HCPCS: 77080

== ENCOUNTER 2024-06-18 10:39 | Outpatient (CLI) | payer BC, SELFPAY ==
--- NOTE | ~2024-06-18 | US_ITS ---
EXAMINATION: US abdomen limited DATE: 06/18/2024 11:01 INDICATION: intra abdominal swelling TECHNIQUE: Multiple grayscale and Doppler ultrasound images of limited portions of the abdomen were o btained. COMPARISON: CT abdomen pelvis 04/12/2012. FINDINGS: The area of clinical concern in the anterior mid abdomen was sonographically interrogated r evealing a 2.9 x 1.3 x 3.3 cm mass of fat echogenicity, lateral to the umbilicus, which appears to pr otrude through the anterior abdominal wall. The hernia neck measures 8 mm. IMPRESSION: Fat-containing anterior abdominal wall hernia. Reviewed, dictated and finalized at location K. E EXAMINER
== END 2024-06-18 10:40 | disposition home or self-care (01) ==
LOC: MICIMG 10:39
PROVIDERS: PCP Internal Medicine; Visit Provider Internal Medicine
DX: R19.00 Intra-abdominal and pelvic swelling, mass and lump, unspecified site (principal); K44.9 Diaphragmatic hernia without obstruction or gangrene
CPT/HCPCS: 76705